=== PATIENT | male | born 1965 | race Caucasian/White ===

== ENCOUNTER 2018-02-12 12:29 | Inpatient (IN) | payer MEDICARE ==
[2018-02-12] MEDS ORDERED: Nitroglycerin 2% OINT* 1 GM PAK TOPICAL ONE (12:40)
[2018-02-12] MEDS ORDERED: Nitroglycerin 2% OINT* 1 GM PAK ONE (12:43)
[2018-02-12 13:10] LABS: ABS Basophils 0.1 10^3/ul (0-0.2); ABS Eosinophils 0.3 10^3/ul (0-0.6); ABS Lymphocytes 1.3 10^3/ul (1.0-4.8); ABS Monocytes 0.8 10^3/ul (0-0.8); ABS Neutrophils 7.6 10^3/ul (1.5-7.7); ABS Nucleated RBC 0 10^3/ul; Eosinophil % 3.1 % (0-6); Hematocrit 51 % (42-52); Lymphocyte % 12.3 % (25-47); Mean Corpuscular HGB Conc 34 g/dl (31-36); Mean Corpuscular Hemoglobin 29 pg (27-31); Mean Corpuscular Volume 87 fL (80-94); Mean Platelet Volume 8.5 um3 (7.4-10.4); Nucleated Red Blood Cells % 0; Platelet Count 185 10^3/ul (150-450); Red Blood Count 5.82 10^6/ul (4.00-5.40); Red Cell Distribution Width 14 % (10.5-15); White Blood Count 10.1 10^3/ul (3.5-10.8)
[2018-02-12 13:24] LABS: EGFR Non-African American 83.9 (>60)
--- NOTE | 2018-02-12 13:24 | RAD ---
Indication: Chest pain since 11:15 hours today. Cardiovascular disease; prosthetic heart valve. Respiratory disease. Comparison: November 17, 2014 CT abdomen. November 17, 2014 chest radiograph. Technique: Upright AP 1315 hours Report: No focal pulmonary lesion, compelling alveolar consolidation, pleural effusion, pneumothorax. Median sternotomy wires, prosthetic mitral valve annulus, RIGHT atrial, RIGHT ventricular, and coronary sinus level pacemaker leads. Mild cardiomegaly. Unremarkable central pulmonary vasculature and mediastinal contours. IMPRESSION: Mild cardiomegaly. Postsurgical change as described. No acute cardiopulmonary process evident.
[2018-02-12] MEDS ORDERED: Morphine INJ* 4 MG/ML 1 ML CARPUJECT IV ONE (13:36)
[2018-02-12] MEDS ORDERED: NS 0.9% 1000 ML* 1,000 ML IV ONE (13:36)
[2018-02-12] MEDS ORDERED: Ondansetron ODT TAB* 4 MG PO ONE (13:36)
[2018-02-12] MEDS ORDERED: Morphine VIAL* 4 MG/ML VIAL (1 ml vial) IV ONE ×2 (13:51→13:55)
[2018-02-12] MEDS ORDERED: Al Hydrox/Mg Hydrox/Simet LIQ* 30 ML UDC PO PRN (15:13)
[2018-02-12] MEDS ORDERED: Nitroglycerin TAB 0.4 MG* 0.4 MG TAB SL PRN (15:20)
[2018-02-12] MEDS ORDERED: Dextrose 50% Syringe 50 ML* 25 GM/50 ML SYRINGE IV PUSH PRN (15:35)
[2018-02-12 15:59] LABS: INR 1.08 (0.77-1.02)
[2018-02-12] MEDS ORDERED: Heparin DRIP 25,000 UNITS(*) 25,000 UNITS/500 ML BAG IV SCH ×2 (16:15→16:30)
[2018-02-12] MEDS ORDERED: nitroGLYCERIN DRIP* 25,000 MCG/250 ML BTL IV ONE (16:21)
[2018-02-12] MEDS ORDERED: Heparin VIAL(*) 5000 UNITS/ML VIAL (FIVE THOUSAND) IV SCH (17:00)
[2018-02-12] MEDS: Insulin LISPRO* 1 UNITS UNIT SUBCUT SCH ×2 (18:08→21:30)
--- NOTE | 2018-02-12 18:48 | ED ---
Mejia Luna Angela, scribed for Jeronimo Mi MD on 02/12/18 at 1241 . HPI Chest Pain - HPI Summary HPI Summary: This pt is a 52 y/o male presenting to [facility] via EMS c/o chest pain since 11:15 today. Pt reports he was standing up while he was watching his daughter's 8th grade graduation. He notes his pain is mid sternal, described as pressure, and radiates up to his throat. Denies, SOB, diaphoresis. At onset pt states his pain was 9 out of 10 in severity. EMS administered nitroglycerin x3 en route with some relief. Currently pt reports his pain is 2/10 in severity. PMHx includes afib, NE, stents, mitral valve replacement, pacemaker. He is anticoagulated on Coumadin. His siphon operator is Dr. Chavira. - History of Current Complaint Chief Complaint: EDChestPainROMI Time Seen by Provider: 02/12/18 12:35 Hx Obtained From: Patient Onset/Duration: Started Hours Ago, Still Present Timing: Lasting Hours Initial Severity: Severe - 9 Current Severity: Mild Pain Intensity: 2 Pain Scale Used: 0-10 Numeric Chest Pain Location: Mid Sternal Chest Pain Radiates: Yes Chest Pain Radiates To:: Other - throat Character: Pressure/Squeezing - pressure Aggravating Factor(s): Nothing Alleviating Factor(s): NTG 123, EMS Tx - aspirin Associated Signs and Symptoms: Positive: Chest Pain, Nausea. Negative: Dizziness, Shortness of Breath, Fever, Chills, Diaphoresis - Allergy/Home Medications Allergies/Adverse Reactions: Allergies Allergy/AdvReac Type Severity Reaction Status Date / Time atorvastatin Allergy Rash Verified 02/12/18 13:09 azithromycin Allergy Hives Verified 02/12/18 13:09 metoprolol Allergy Rash Verified 02/12/18 13:09 ramipril Allergy Rash Verified 02/12/18 13:09 Home Medications: Home Medications Dapagliflozin Propanediol [Farxiga] 10 mg PO DAILY 02/12/18 [History Confirmed 02/12/18] Digoxin TAB* [Lanoxin TAB*] 0.25 mg PO DAILY 02/12/18 [History Confirmed ] Magnesium Oxide TAB* [MagOx 400 TAB*] 400 mg PO DAILY 02/12/18 [History Confirmed 02/12/18] Rosuvastatin (NF) [Crestor (NF)] 20 mg PO DAILY 02/12/18 [History Confirmed 07/22] Sacubitril/Valsartan 49/51(NF) [Entresto 49/51(NF)] 1 tab PO BID 02/12/18 [ History Confirmed 02/12/18] Sitaglip/Metform XR50/1000(NR) [Janumet Xr (NR)] 2 tab PO DAILY [History Confirmed 02/12/18] PMH/Surg Hx/FS Hx/Imm Hx Endocrine/Hematology History: Reports: Hx Anticoagulant Therapy - coumadin, asa , Hx Diabetes, Hx Thyroid Disease Cardiovascular History: Reports: Hx Angina, Hx Auto Implanted Cardiovert Defib, Hx Coronary Artery Disease, Hx Hypercholesterolemia, Hx Hypertension, Hx Myocardial Infarction, Hx Pacemaker/ICD, Hx Valvular Heart Disease - mitral, Other Cardiovascular Problems/Disorders - mechanical valve Denies: Hx Congestive Heart Failure Respiratory History: Reports: Hx Sleep Apnea - cpap, but does not use Denies: Hx Asthma, Hx Chronic Obstructive Pulmonary Disease (COPD) GI History: Reports: Other GI Disorders - gastroenteritis History: Denies: Hx Dialysis, Hx Renal Disease Musculoskeletal History: Denies: Hx Arthritis, Hx Rheumatoid Arthritis, Hx Osteoporosis Sensory History: Reports: Hx Contacts or Glasses Opthamlomology History: Reports: Hx Contacts or Glasses Neurological History: Reports: Hx Headaches - Surgical History Surgery Procedure, Year, and Place: MITRAL VALVE REPLACEMENT (2 SURGERIES), PACEMAKER, CARDIAC STENT Infectious Disease History: No Infectious Disease History: Denies: Traveled Outside the [place] in Last 30 Days - Family History Known Family History: Positive: Cardiac Disease - Father: NE at age 38 Family History: Mother: Alzheimer's disease. - Social History Alcohol Use: Rare Substance Use Type: Reports: None Smoking Status (MU): Former Smoker Review of Systems Negative: Fever, Chills Negative: Erythema Negative: Sore Throat Positive: Chest Pain Negative: Shortness Of Breath, Cough Positive: Nausea. Negative: Abdominal Pain, Vomiting Negative: dysuria, hematuria Negative: Myalgia, Edema Negative: Rash Neurological: Other - NEG: dizziness All Other Systems Reviewed And Are Negative: Yes Physical Exam - Summary Physical Exam Summary: Constitutional: Well-developed, Well-nourished, Alert. (-) Distressed Skin: Warm, Dry HENT: Normocephalic; Atraumatic Eyes: Conjunctiva normal Neck: Musculoskeletal ROM normal neck. (-) JVD, (-) Stridor, (-) Tracheal deviation Cardio: Rhythm regular, rate normal, Heart sounds normal; Intact distal pulses; The pedal pulses are 2+ and symmetric. Radial pulses are 2+ and symmetric. (-) Murmur Pulmonary/Chest wall: Effort normal. (-) Respiratory distress, (-) Wheezes, (-) Rales Abd: Soft, (-) Tenderness, (-) Distension, (-) Guarding, (-) Rebound Musculoskeletal: (-) Edema Lymph: (-) Cervical adenopathy Neuro: Alert, Oriented x3 Psych: Mood and affect Normal Triage Information Reviewed: Yes Vital Signs On Initial Exam: Initial Vitals Temp Pulse Resp BP Pulse Ox 97.1 F 64 16 120/71 97 02/12/18 12:30 02/12/18 12:30 02/12/18 12:30 02/12/18 12:30 02/12/18 12:30 Vital Signs Reviewed: Yes Diagnostics - Vital Signs Vital Signs Temp Pulse Resp BP Pulse Ox 02/12/18 12:38 58 16 97 02/12/18 12:30 97.1 F 64 16 120/71 97 - Laboratory Result Diagrams: 02/12/18 13:01 02/12/18 13:01 Lab Statement: Any lab studies that have been ordered have been reviewed, and results considered in the medical decision making process. - Radiology Chest XR Xray Interpretation: Positive (See Comments) - IMPRESSION: Mild cardiomegaly. Postsurgical change as described. No acute cardiopulmonary process evident. Dr. Mi has reviewed this radiology report. Radiology Interpretation Completed By: Radiologist - EKG 12:32 Cardiac Rate: NL - at 60 bpm EKG Interpretation: Paced rhythm. No STEMI. 16:21 Cardiac Rate: NL - at 76 bpm EKG Interpretation: Paced rhythm. No change from prior EKG. No STEMI. Re-Evaluation - Re-Evaluation First Eval Re-Evaluation Time: 13:35 Change: Unchanged Comment: Pt still has 2/10 chest pain. Chest Pain Course/Dx - Course Assessment/Plan: Pt is a 52 y/o male, currently on Coumadin, who presents with chest pain since 11:15 today. Pt reports he was standing up while he was watching his daughter's 8th grade graduation when his chest pain began. He notes his pain is mid sternal, described as pressure, and radiates up to his throat. Denies, SOB, diaphoresis. At onset pt states his pain was 9 out of 10 in severity. EMS administered nitroglycerin x3 and aspirin en route with some relief. Currently pt reports his pain is 2/10 in severity. Test results without any significant abnormalities except for glucose of 265, first troponin is 0.03, second troponin is 0.31. Chest XR shows mild cardiomegaly. Postsurgical change as described. No acute cardiopulmonary process evident. In the ED course the pt was given IV fluids, morphine, zofran, heparin drip, nitroglycerin drip. I discussed pt care with Dr. Kahn, hospitalist, who accepted the pt for admission. - Diagnoses Provider Diagnoses: Chest pain - Provider Notifications Discussed Care Of Patient With: Edilma Kahn Time Discussed With Above Provider: 13:39 Instructed by Provider To: Admit As Inpatient Discharge - Sign-Out/Discharge Documenting (check all that apply): Discharge/Admit/Transfer - Admit - Discharge Plan Condition: Stable Disposition: ADMITTED TO [facility] The documentation as recorded by the Mejia ríos Angela accurately reflects the service I personally performed and the decisions made by me, Jeroniom Mi MD.
[2018-02-12 18:59] LABS: INR 1.45 (0.77-1.02)
[2018-02-12] MEDS: Acetaminophen TAB* 325 MG PO PRN (20:14)
--- NOTE | 2018-02-12 21:15 | HP ---
HISTORY AND PHYSICAL: DATE OF ADMISSION: ADDENDUM: Mr. Guzmán's second troponin just returned as 0.31. I have discussed the case with Dr. Hill and he agrees to evaluate the patient. [id number]/[facility] #: [id number] MTDD
[2018-02-12] MEDS: Carvedilol TAB* 6.25 MG PO SCH (21:30)
[2018-02-12] MEDS: SACUBITRIL PO SCH (21:31)
[2018-02-12] MEDS: VALSARTAN PO SCH (21:31)
--- NOTE | 2018-02-12 21:48 | HP ---
ADDENDUM NOW INCLUDED ON THIS REPORT HISTORY AND PHYSICAL: DATE OF ADMISSION: 02/12/18 TIME OF ADMISSION: 4 p.m. PRIMARY CARE PHYSICIAN: [facility]. BRICK SETTER OPERATOR: Dr. Chavira. CHIEF COMPLAINT: Chest pain. HISTORY OF PRESENT ILLNESS: This is a 52-year-old man with extensive cardiac history who presents with chest pain that began approximately 11 o'clock this morning at his daughter's 8th grade graduation. He was standing outside watching the ceremony when the pain began and he describes it as in the middle of his chest with radiation up to his throat and it has been constant since that time. He has not exerted himself since then, so he cannot associate any change with exertion, but the pain was associated with nausea and vomiting. He had taken his medications prior to the graduation and was feeling fine when he woke up. The pain came on suddenly and when it began was an 8/10. He took a nitro when the pain initially began and received 3 more nitro in the ambulance and the pain went from 8/10 to a 2/10. It continued to be 2/10 and in the emergency department, he received a nitro patch and morphine 4 mg IV and the pain is still at 2/10 and located in the middle of his chest without radiation. PAST MEDICAL HISTORY: 1. Systolic heart failure, ejection fraction 30% to 35%. 2. Atrial fibrillation/atrial flutter. 3. Coronary artery disease with stent. 4. Hypertension. 5. Pacemaker. 6. 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 7. History of ablation. FAMILY HISTORY: His father had an ME at age 40. SOCIAL HISTORY: He quit smoking 12 years ago. He drinks occasional alcohol and he does not work. REVIEW OF SYSTEMS: He denies orthopnea, PND, lightheadedness, headache, abdominal pain, back pain, or weakness. He does endorse dyspnea on exertion, but is chronic and unchanged. PHYSICAL EXAMINATION GENERAL: Alert, nontoxic-appearing man, who is somewhat uncomfortable. VITAL SIGNS: Temperature 97.1, heart rate 60, respiratory rate 14, pulse ox 94 % on room, blood pressure 99/63. HEENT: Pupils equal, round, and reactive to light. No nystagmus. Oral mucosa is moist. No pharyngeal exudates or erythema. NECK: No JVP. No cervical adenopathy. CHEST: Healed sternotomy incision at left chest wall pacemaker/ICD is noted. He has a mechanical click. Lungs are clear bilaterally. Chest pain is not reproducible to palpation. ABDOMEN: Soft, nontender, nondistended. No guarding or rebound. EXTREMITIES: No edema. No rashes. No ulcers. Strength is 5/5. LABORATORY DATA/DIAGNOSTIC STUDIES: White blood cell is 10.1, hemoglobin 17.0 , platelets 185. INR 1.0. Sodium 134, potassium 4.3, chloride 102, bicarb 23, BUN 0.94, creatinine 0.94, glucose 265, lactic acid 1.9. Troponin 0.03. Chest x-ray: Mild cardiomegaly and postsurgical changes. EKG: Paced rhythm with left axis deviation. ASSESSMENT AND PLAN: This is a 52-year-old man with extensive cardiac history presenting with chest pain that began approximately 5 hours ago. 1. Chest pain. His pain is ongoing at rest, which is concerning for unstable angina to me. An initial troponin is negative and his EKG is difficult to determine given its paced nature; however, reportedly, the EKG was reviewed by the taper operator. I am trending his troponin, monitoring him on tele and I would like to get him chest pain free with continued nitroglycerin and morphine. Since his INR is subtherapeutic and I am considering this to be unstable angina until proven otherwise, I am treating him with a heparin drip at this time. He takes aspirin daily at home, so this will be continued. He also takes beta- august which I am continuing and he takes a statin, but only 20 mg of rosuvastatin and I am increasing the dose of rosuvastatin. I am also starting a nitro drip and admitting him to the ICU 2. Subtherapeutic INR. This is concerning in the setting of St. Pee's valve; however, a complication of this should not result in chest pain. I am treating him with a heparin drip as above. 3. Atrial fibrillation/flutter with a pacemaker. He is rate controlled and I am treating him with heparin drip as above. 4. Chronic systolic heart failure due to ischemic cardiomyopathy. He appears euvolemic to me. He is on a beta-august and spironolactone, but not on HARJEET inhibitor. I see he has an allergy to RAMIPRIL, but it is unclear if he has been tried on other HARJEET inhibitors. If this is not a true allergy, he would benefit from afterload reduction with an HARJEET inhibitor. 5. Type 2 diabetes. I am treating him with lispro sliding scale a.c. and h.s. 6. DVT prophylaxis. Heparin therapeutically. 7. Full code. ADDENDUM: Mr. Guzmán's second troponin just returned as 0.31. I have discussed the case with Dr. Hill and he will evaluate the patient. [id number]/[facility] #: [id number]/[facility] #: [id number] MCKAY
--- NOTE | 2018-02-13 00:01 | CONS ---
CC: Dr. Chavira; [facility] in [place] * INTERVENTIONAL CARDIOLOGY CONSULT NOTE: DATE OF CONSULT: 02/12/18. REGULAR POWERHOUSE ELECTRICIAN: Dr. Chavira. PRIMARY CARE PHYSICIAN: [facility] in [place]. HISTORY OF PRESENT ILLNESS: A 52-year-old male with prior mitral valve replacement and coronary artery stenting, admitted with troponin positive ACS, non-ST elevation infarct. He has a complex past medical history. In 2005, he had an inferior wall infarct , was treated with thrombolysis with apparently failure. He developed cardiogenic shock, was flown to [place] where he had rescue RCA intervention with placement of a 3 x 18 Cypher drug-eluting stent in the RCA. His other vessels were patent. The inferior wall was akinetic. He had an intra-aortic balloon pump for several days. He apparently developed mitral regurgitation, subsequently had a mitral valve repair, which failed and then had a mitral valve replacement in [address] Pee bileaflet prosthetic valve. He has been on Coumadin since. He also has LV systolic dysfunction, last echo 2017 reported EF of 30 to 35%. He has had recurring episodes of ventricular arrhythmias, as well as atrial fib and atrial flutter, he has had ablation, has been on Tikosyn in the past. Apparently, he has been on atrial fibrillation now since November of this year, dig was started about two weeks ago for rate control. According to the patient, the intent is for rate control, as he continues to revert back to atrial fib or atrial flutter after cardioversions. Since November, he has had functional class II to III exertional dyspnea and fatigue without PND, orthopnea or peripheral edema. He has not had syncope. Today at around 11:15, he developed precordial chest discomfort, which radiated up into his neck, was accompanied by shortness of breath, nausea, and vomiting, was very similar to his infarct symptoms in 2006. He subsequently has symptomatically improved with sublingual and then IV nitro. Currently, he has very mild residual chest soreness. His last nuclear stress imaging study in 2013 reported a fixed inferior wall defect with LV dysfunction. He has diabetes, reports that his Accu-Cheks run in the 160s to 180s, he seems unaware that this is relatively poorly controlled. His last A1c was high at 10. He is on Crestor 20 mg daily according to his med list. His last LDL in July 2017 was high at 145. PAST MEDICAL HISTORY: 1. Prior inferior wall infarct with inferior scar, status post mitral valve replacement, St. Pee #29 prosthetic valve. 2. Ischemic cardiomyopathy. 3. Paroxysmal ventricular arrhythmias. 4. History of atrial fib and flutter. 5. Hypothyroidism. 6. Diabetes mellitus, type 2, poorly controlled. 7. Hyperlipidemia. HOME MEDICATIONS: Per the MAR: 1. Coumadin 6 mg daily for the past week or two since INR was in the 3s. 2. Aldactone 50 mg daily. 3. Janumet XR two daily. 4. Entresto 49/51 b.i.d. 5. Crestor 20 daily. 6. Paxil 10 mg daily. 7. Nitro 0.4 sublingual p.r.n. 8. Synthroid 175 mcg daily. 9. Digoxin 0.25 mg daily. 10. Farxiga 10 mg daily. 11. Carvedilol 6.25 b.i.d. 12. Aspirin 81 mg daily. ALLERGIES: Include ATORVASTATIN with rash, ZITHROMAX with hives, METOPROLOL with rash, and RAMIPRIL with apparently a cough. FAMILY HISTORY: Positive for premature coronary artery disease. SOCIAL HISTORY: He is a nonsmoker. REVIEW OF SYSTEMS: General: He is limited by exertional dyspnea and fatigue. MOWING MACHINE OPERATOR: No history of TIA or CVA. GI: He denies any history of bleeding. Circulatory: No claudication. Heme: No history of malignancy or anemia. Remainder all negative. PHYSICAL EXAM: He is comfortable resting in bed, has very mild chest pressure. His BP 131/67, heart rate in the 60s. His lungs are clear to percussion and auscultation. JVP is normal, as are carotids without bruits. HEENT: Normal without xanthelasma, scleral injection or jaundice. EOMs are grossly normal. Cranial nerves grossly intact. Cardiac Exam: Chest wall is nontender, he has a healed sternal incision. He has no audible mitral regurgitation, no gallop. Abdomen: Benign, soft. Normal bowel sounds, I cannot feel the aorta. No bruit. Femoral pulses are normal without bruits. Extremities: Radial pulses and pedal pulses are palpable. He has no cyanosis, clubbing or edema. Skin is warm and perfused. Psych: He is oriented and appropriate. DIAGNOSTIC STUDIES/LAB DATA: His CBC is unremarkable, platelet count 185,000. INR subtherapeutic at 1.08. BMP: Sodium 134, normal electrolytes, creatinine 0.94, blood sugar high at 265. A1c on 01/18/18 was 10. First troponin 0.3, second 0.31, BNP elevated at 124. Electrocardiogram shows ventricular paced rhythm. Chest x- ray per my review shows sternotomy changes, an AICD without any clear heart failure or infiltrate. IMPRESSION AND PLAN: 1. Troponin positive acute coronary syndrome/non- ST elevation infarct. He has left ventricular systolic dysfunction, has previously infarct at inferior wall with drug eluting stent. He had no other coronary disease at that time. His history is suggestive of an ischemic event rather than troponin elevation from decompensated heart failure. We have discussed this, I have recommended a coronary angiogram. He is much improved with medical management, cath is scheduled for tomorrow, sooner if he decompensates. We discussed possible need for additional stenting, we also discussed procedure, risks including possible need for transfer, etc. He will continue on heparin. We will hold this Coumadin. 2. Diabetes, uncontrolled. 3. Left ventricular systolic dysfunction, clinically compensated, continue same regimen. He is apparently intolerant of HARJEET inhibitors. 4. Paroxysmal atrial fibrillation and flutter, he apparently now is chronically in atrial fib/flutter with the intent of rate control, symptomatically he is limited. Thanks for the consultation. I will follow with you as needed. [id number]/[facility] #: [id number] MTDD
[2018-02-13] MEDS: Heparin VIAL(*) 5000 UNITS/ML VIAL (FIVE THOUSAND) IV SCH (00:52)
[2018-02-13 05:59] LABS: INR 1.18 (0.77-1.02)
[2018-02-13] MEDS: Levothyroxine TAB* 175 MCG TAB PO SCH (06:03)
[2018-02-13 06:06] LABS: EGFR Non-African American 86.1 (>60)
[2018-02-13 08:19] LABS: ABS Basophils 0.1 10^3/ul (0-0.2); ABS Eosinophils 0.4 10^3/ul (0-0.6); ABS Lymphocytes 1.8 10^3/ul (1.0-4.8); ABS Monocytes 0.9 10^3/ul (0-0.8); ABS Neutrophils 5.5 10^3/ul (1.5-7.7); ABS Nucleated RBC 0 10^3/ul; Eosinophil % 4.4 % (0-6); Hematocrit 47 % (42-52); Hemoglobin 15.6 g/dl (14.0-18.0); Lymphocyte % 20.5 % (25-47); Mean Corpuscular HGB Conc 33 g/dl (31-36); Mean Corpuscular Hemoglobin 29 pg (27-31); Mean Corpuscular Volume 87 fL (80-94); Mean Platelet Volume 8.8 um3 (7.4-10.4); Nucleated Red Blood Cells % 0.1; Platelet Count 168 10^3/ul (150-450); Red Blood Count 5.42 10^6/ul (4.00-5.40); Red Cell Distribution Width 15 % (10.5-15); White Blood Count 8.5 10^3/ul (3.5-10.8)
[2018-02-13] MEDS: Digoxin TAB* 0.25 MG PO SCH (08:26)
[2018-02-13] MEDS: PARoxetine HCL TAB* 10 MG PO SCH (08:26)
[2018-02-13] MEDS: CMCS Rosuvastatin (NF) 20 MG TAB PO SCH (08:26)
[2018-02-13] MEDS: Carvedilol TAB* 6.25 MG PO SCH ×2 (08:26→20:44)
[2018-02-13] MEDS: Magnesium Oxide TAB* 400 MG PO SCH (08:26)
[2018-02-13] MEDS: Acetaminophen TAB* 325 MG PO PRN (08:27)
[2018-02-13] MEDS: Aspirin EC TAB* 81 MG TAB.EC PO SCH (08:27)
[2018-02-13] MEDS: Insulin LISPRO* 1 UNITS UNIT SUBCUT SCH ×4 (08:29→20:52)
[2018-02-13] MEDS: SACUBITRIL PO SCH ×2 (08:29→20:43)
[2018-02-13] MEDS: VALSARTAN PO SCH ×2 (08:29→20:43)
[2018-02-13] MEDS ORDERED: NS 0.9% 1000 ML* 1,000 ML IV SCH (09:00)
[2018-02-13] MEDS ORDERED: Rosuvastatin (NF) 20 MG TAB PO SCH (09:00)
[2018-02-13] MEDS ORDERED: Heparin 2 UNITS/ML IVPREMIX* 3,000 ML IV ONE (11:05)
[2018-02-13] MEDS ORDERED: fentaNYL* 50 MCG/ML 2 ML VIAL (100 MCG VIAL) ONE (11:05)
[2018-02-13] MEDS ORDERED: Heparin(*) 1000 UNIT/ML 10 ML VIAL CATH LAB IV ONE ×2 (11:05→12:55)
[2018-02-13] MEDS ORDERED: Iohexol 350 (CONTRAST) 200 ML MDV IV ONE (11:06)
[2018-02-13] MEDS ORDERED: nitroGLYCERIN DRIP* 25,000 MCG/250 ML BTL ONE (11:06)
[2018-02-13] MEDS ORDERED: VERAPAMIL 2.5 MG/ML 2 ML VIAL ** 5 mg/2 ml ONE (11:06)
[2018-02-13] MEDS ORDERED: Lidocaine 1% INJ* 10 MG/ML 30 ML SDV ONE (11:06)
[2018-02-13] MEDS ORDERED: Midazolam* 1 MG/ML 10 ML VIAL (10 MG) ONE (11:06)
[2018-02-13] MEDS ORDERED: Ticagrelor* 90 MG TAB PO ONE (12:42)
[2018-02-13] MEDS ORDERED: Nitroglycerin TAB 0.4 MG* 0.4 MG TAB SL PRN (13:19)
[2018-02-13] MEDS ORDERED: NS 0.9% 1000 ML* 1,000 ML IV ONE (13:19)
[2018-02-13] MEDS: Spironolactone TAB* 25 MG PO SCH (15:14)
[2018-02-13] MEDS: oxyCODONE/Acetamin 5/325 MG* TAB PO PRN ×2 (15:14→20:44)
[2018-02-13] MEDS ORDERED: Warfarin TAB(*) 2 MG PO SCH (17:00)
[2018-02-13] MEDS ORDERED: Warfarin TAB(*) 6 MG PO SCH (17:00)
[2018-02-13] MEDS ORDERED: Heparin DRIP 25,000 UNITS(*) 25,000 UNITS/500 ML BAG IV SCH (17:45)
[2018-02-13] MEDS ORDERED: Clopidogrel TAB* 300 MG PO ONE (18:00)
--- NOTE | 2018-02-13 21:43 | PN ---
Subjective Date of Service: 02/13/18 Interval History: scheduled for cardiac cath today at 10 am. denies chest pain or shortness of breath. Denies abd pain n/v/d. Family History: Unchanged from Admission Social History: Unchanged from Admission Past Medical History: Unchanged from Admission Objective Active Medications: Acetaminophen (Tylenol Tab*) 650 mg PO Q4H PRN PRN Reason: FEVER/PAIN Last Admin: 02/13/18 08:27 Dose: 650 mg Al Hydrox/Mg Hydrox/Simethicone (Maalox Plus*) 30 ml PO Q6H PRN PRN Reason: INDIGESTION Aspirin (Aspirin Ec Tab*) 81 mg PO DAILY [facility] Last Admin: 02/13/18 08:27 Dose: 81 mg Carvedilol (Coreg Tab*) 6.25 mg PO BID [facility] Last Admin: 02/13/18 20:44 Dose: 6.25 mg Clopidogrel Bisulfate (Plavix Tab*) 75 mg PO DAILY [facility] Dextrose (D50w Syringe 50 Ml*) 12.5 gm IV PUSH .FOR FS < 60 - SS PRN PRN Reason: FS < 60 Digoxin (Lanoxin Tab*) 0.25 mg PO DAILY [facility] Last Admin: 02/13/18 08:26 Dose: 0.25 mg Heparin Sodium (Porcine) (Heparin Vial(*)) 0 units IV .PER PROTOCOL [facility] Last Admin: 02/13/18 00:52 Dose: 2,000 units Sodium Chloride (Ns 0.9% 1000 Ml*) 1,000 mls @ 100 mls/hr IV .PER RATE ONE Stop: 02/13/18 23:18 Last Admin: 02/13/18 13:30 Dose: 100 mls/hr Heparin Sodium/Dextrose (Heparin Drip 25,000 Units(*)) 25,000 units in 500 mls @ 0 mls/hr IV PER RATE [facility]; Per Protocol PRN Reason: Protocol Insulin Human Lispro (Humalog*) 0 units SUBCUT ACHS [facility] PRN Reason: Protocol Last Admin: 02/13/18 20:52 Dose: 3 units Levothyroxine Sodium (Synthroid Tab*) 175 mcg PO 0600 [facility] Last Admin: 02/13/18 06:03 Dose: 175 mcg Magnesium Oxide (Magox 400 Tab*) 400 mg PO DAILY [facility] Last Admin: 02/13/18 08:26 Dose: 400 mg Nitroglycerin (Nitroglycerin Tab 0.4 Mg*) 0.4 mg SL Q5M PRN PRN Reason: PAIN - CHEST Nitroglycerin (Nitroglycerin Tab 0.4 Mg*) 0.4 mg SL Q5M PRN PRN Reason: ANGINA Oxycodone/Acetaminophen (Percocet 5/325 Tab*) 1 tab PO Q6H PRN PRN Reason: PAIN Last Admin: 02/13/18 20:44 Dose: 1 tab Paroxetine HCl (Paxil Tab*) 10 mg PO DAILY [facility] Last Admin: 02/13/18 08:26 Dose: 10 mg Pharmacy Profile Note (Coumadin Daily Reminder*) 1 note FOLLOW UP 1700 [facility] Last Admin: 02/13/18 17:50 Dose: 1 note Rosuvastatin Calcium (Crestor (Nf)) 40 mg PO DAILY [facility] Last Admin: 02/13/18 08:26 Dose: 40 mg Sacubitril/Valsartan (Entresto 49/51(Nf)) 1 tab PO BID [facility] Last Admin: 02/13/18 20:43 Dose: 1 tab Spironolactone (Aldactone Tab*) 50 mg PO DAILY [facility] Last Admin: 02/13/18 15:14 Dose: 50 mg Warfarin Sodium (Coumadin Tab(*)) 7 mg PO DAILY@1700 [facility] PRN Reason: Protocol Last Admin: 02/13/18 17:50 Dose: 7 mg Vital Signs - 8 hr 02/13/18 02/13/18 02/13/18 13:45 14:00 14:15 Temperature Pulse Rate 60 61 63 Respiratory 18 15 20 Rate Blood Pressure 116/70 109/76 134/80 (mmHg) O2 Sat by Pulse 93 95 95 Oximetry 02/13/18 02/13/18 02/13/18 14:31 14:46 15:00 Temperature Pulse Rate 61 60 62 Respiratory 18 13 14 Rate Blood Pressure 129/69 93/59 127/69 (mmHg) O2 Sat by Pulse 96 95 94 Oximetry 02/13/18 02/13/18 02/13/18 15:04 15:14 15:15 Temperature 98 F Pulse Rate 60 Respiratory 15 15 Rate Blood Pressure 112/71 (mmHg) O2 Sat by Pulse 95 Oximetry 02/13/18 02/13/18 02/13/18 15:30 15:45 16:00 Temperature 96.7 F Pulse Rate 60 60 60 Respiratory 19 17 15 Rate Blood Pressure 120/80 125/61 116/62 (mmHg) O2 Sat by Pulse 94 96 95 Oximetry 02/13/18 02/13/18 02/13/18 16:04 16:16 16:26 Temperature 98.2 F Pulse Rate 60 Respiratory 11 20 Rate Blood Pressure 90/57 (mmHg) O2 Sat by Pulse 95 Oximetry 02/13/18 02/13/18 02/13/18 16:30 16:45 17:00 Temperature Pulse Rate 60 59 60 Respiratory 9 17 14 Rate Blood Pressure 94/52 108/51 107/53 (mmHg) O2 Sat by Pulse 93 94 96 Oximetry 02/13/18 02/13/18 02/13/18 17:15 17:30 17:46 Temperature Pulse Rate 60 61 60 Respiratory 13 19 18 Rate Blood Pressure 101/56 130/76 107/46 (mmHg) O2 Sat by Pulse 95 96 96 Oximetry 02/13/18 02/13/18 02/13/18 18:00 18:04 18:31 Temperature 98 F Pulse Rate 60 60 Respiratory 15 10 Rate Blood Pressure 108/61 127/45 (mmHg) O2 Sat by Pulse 96 96 Oximetry 02/13/18 02/13/18 02/13/18 18:46 19:00 19:15 Temperature Pulse Rate 60 60 59 Respiratory 18 27 19 Rate Blood Pressure 110/49 124/69 140/73 (mmHg) O2 Sat by Pulse 98 95 94 Oximetry 02/13/18 02/13/18 02/13/18 19:26 19:30 19:42 Temperature 98.1 F Pulse Rate 60 60 Respiratory 16 19 Rate Blood Pressure 129/57 122/71 (mmHg) O2 Sat by Pulse 95 94 Oximetry 02/13/18 02/13/18 02/13/18 20:00 20:30 20:44 Temperature Pulse Rate 60 60 Respiratory 20 16 22 Rate Blood Pressure 125/69 124/67 (mmHg) O2 Sat by Pulse 95 94 Oximetry 02/13/18 21:00 Temperature Pulse Rate 68 Respiratory 25 Rate Blood Pressure 133/72 (mmHg) O2 Sat by Pulse 94 Oximetry Oxygen Devices in Use Now: None Appearance: appears comfortable sitting in bed. Eyes: No Scleral Icterus Ears/Nose/Mouth/Throat: Clear Oropharnyx, Mucous Membranes Moist Neck: NL Appearance and Movements; NL JVP, Trachea Midline Respiratory: Symmetrical Chest Expansion and Respiratory Effort, Clear to Auscultation Cardiovascular: No Edema, - - irregular rate, Click, no JVD Abdominal: NL Sounds; No Tenderness; No Distention Extremities: No Edema, No Clubbing, Cyanosis Skin: No Rash or Ulcers, No Nodules or Sclerosis Neurological: Alert and Oriented x 3 Nutrition: - - NPO Result Diagrams: 02/13/18 05:30 02/13/18 05:38 Microbiology and Other Data: Microbiology 02/12/18 18:05 Nasal Screen MRSA (PCR)(HERIBERTO) - Final Nasal Mrsa Not Detected Assess/Plan/Problems-Billing Assessment: Mr. Guzmán is a 52 y.o male who carries a past medical hx significant for extensive cardiac history which includes CA, prosthetic mitral valve, HTN, afib / flutter , CAD, and pacemaker who presented to the emergency room with chest pain. Postive troponins. Cardiac cath on 02/13 with stent placed in the Circumflex. Patient is on chronic anticoagulation with coumadin, INR sub- therapeutic and is needing heparin drip until therapeutic - Patient Problems (1) Chest pain Current Visit: Yes Status: Acute Code(s): R07.9 - CHEST PAIN, UNSPECIFIED SNOMED Code(s): 90324839 Comment: With positive troponins peaked at 2.42 - Dr. Hill consulted - cardiac cath today stent in the Circumflex - plavix loading dose given and will continue with 75 mg daily - ASA - will continue home medications (2) Subtherapeutic international normalized ratio (INR) Current Visit: Yes Status: Acute Code(s): R79.1 - ABNORMAL COAGULATION PROFILE SNOMED Code(s): 314894630 Comment: Will continue heparin drip until INR is therapeutic, prosthetic mitral valve Coumadin 7 mg today-will adjust dosing according to his INR INR today 1.18 repeat INR in the AM (3) Coronary artery arteriosclerosis Current Visit: No Status: Acute Code(s): I25.10 - ATHSCL HEART DISEASE OF [place] CORONARY ARTERY W/O ANG PCTRS SNOMED Code(s): 50945202 Comment: Continue home medictions - cardiac cath with stent placement today in the Circumflex - plavix loading dose 300 mg and then 75 mg daily - ASA (4) HTN (hypertension) Current Visit: Yes Status: Acute Code(s): I10 - ESSENTIAL (PRIMARY) HYPERTENSION SNOMED Code(s): 36996367 Comment: Will continue home medications (5) Atrial flutter Current Visit: No Status: Acute Code(s): I48.92 - UNSPECIFIED ATRIAL FLUTTER SNOMED Code(s): 6619305 Comment: Will continue Digoxin- rate is controlled pacemaker will continue coreg and entresto , coumadin ASA (6) Cardiomyopathy Current Visit: No Status: Acute Code(s): I42.9 - CARDIOMYOPATHY, UNSPECIFIED SNOMED Code(s): 35465879 Comment: pacemaker Continue home medications - entresto, coreg, asa, aldactone (7) Hypothyroid Current Visit: Yes Status: Acute Code(s): E03.9 - HYPOTHYROIDISM, UNSPECIFIED SNOMED Code(s): 53324019 Comment: Continue Levothyroxine (8) Diabetes Current Visit: Yes Status: Acute Code(s): E11.9 - TYPE 2 DIABETES MELLITUS WITHOUT COMPLICATIONS SNOMED Code(s): 15612708 Comment: Finger sticks Lispro sliding scale (9) DVT prophylaxis Current Visit: Yes Status: Resolved Code(s): OHK1639 - SNOMED Code(s): 924613113 Comment: Coumadin INR sub therapeutic - heparin drip (10) Full code status Current Visit: Yes Status: Acute Code(s): Z78.9 - OTHER SPECIFIED HEALTH STATUS SNOMED Code(s): 554716363 Status and Disposition: inpatient until INR is therapeutic
[2018-02-14] MEDS: Heparin DRIP 25,000 UNITS(*) 25,000 UNITS/500 ML BAG IV SCH ×2 (00:24→20:18)
[2018-02-14] MEDS: Heparin VIAL(*) 5000 UNITS/ML VIAL (FIVE THOUSAND) IV SCH (02:55)
[2018-02-14 05:14] LABS: ABS Basophils 0 10^3/ul (0-0.2); ABS Eosinophils 0.4 10^3/ul (0-0.6); ABS Lymphocytes 1.8 10^3/ul (1.0-4.8); ABS Monocytes 0.8 10^3/ul (0-0.8); ABS Neutrophils 5.5 10^3/ul (1.5-7.7); ABS Nucleated RBC 0 10^3/ul; Eosinophil % 4.5 % (0-6); Hematocrit 46 % (42-52); Hemoglobin 15.2 g/dl (14.0-18.0); Lymphocyte % 21.4 % (25-47); Mean Corpuscular HGB Conc 33 g/dl (31-36); Mean Corpuscular Hemoglobin 29 pg (27-31); Mean Corpuscular Volume 87 fL (80-94); Mean Platelet Volume 8.3 um3 (7.4-10.4); Nucleated Red Blood Cells % 0.1; Platelet Count 152 10^3/ul (150-450); Red Blood Count 5.24 10^6/ul (4.00-5.40); Red Cell Distribution Width 14 % (10.5-15); White Blood Count 8.6 10^3/ul (3.5-10.8)
[2018-02-14 05:21] LABS: INR 1.15 (0.77-1.02)
[2018-02-14 05:30] LABS: EGFR Non-African American 98.3 (>60)
[2018-02-14] MEDS: Levothyroxine TAB* 175 MCG TAB PO SCH (05:45)
--- NOTE | 2018-02-14 08:10 | CATH ---
CC: [facility]; Dr. Chavira STENT REPORT: DATE OF PROCEDURE: 02/13/18 PRIMARY CARE PHYSICIAN: [facility]. TOW TRUCK DISPATCHER: Dr. Chavira. PROCEDURES: 1. Right ulnar artery access, bilateral selective coronary cineangiography. 2. Left heart catheterization. 3. Left ventriculography. 4. Stent placement, circumflex OM, 2.75 x 8 Synergy drug-eluting stent. HISTORY: A 52-year-old male with inferior infarct in 2005 with salvage stenting 3 x 18 distal RCA wi th cardiogenic shock. He subsequently developed severe MR, required mitral valve replacement. He renteria s LV systolic dysfunction, last echo in September EF 30% to 35%. He now presents with troponin positiv e ACS, non-ST elevation infarct. PROCEDURE ACCESS: The right radial artery was small, could not be entered even with ultrasound jackie tance, therefore the right ulnar artery, which was large was used for access with ultrasound guidance . DIAGNOSTIC CATHETERS: A 5F TIG 4 and a 5F pigtail. MEDICATIONS: 1. Subcu lidocaine. 2. IV Versed. 3. IV fentanyl. 4. Heparin 3000 units, verapamil 3 mg, nitroglycerin 300 mcg, heparin 4000 units IV, 3000 units IV. 5. Brilinta 180 mg p.o. loading dose. GUIDING CATHETERS: A 6F VL 3.5 wire 14 BMW used to deploy a 2.75 x 8 Synergy drug- eluting stent, OM 1 ostium, 11 atmospheres 16 seconds, then postdilated with a 2.75 x 8 NC balloon to 16 atmospheres fo r 20 seconds. HEMODYNAMICS: Initial BP 125/62, LV 98/6-9, no aortic valve gradient on pullback. ANGIOGRAPHY: He has an AICD implanted, and has a prosthetic tilting disk valve with normal excursion of the valve leaflets. Left main: The left main is short, normal. LAD: The LAD is large, extends past the apex, it has somewhat slow flow, the LAD supplies several sm all to moderate diagonals, the LAD has mild systolic compression in its mid segment, the LAD has no s ignificant stenosis. Circumflex: The circumflex is moderate, not dominant, with a very small ramus branch, the first kenyetta inal is moderate, has an ostial 80% stenosis, has AINSLEY 2 flow, this is followed by a very small calib er, small distribution, second marginal which has proximal 60% to 70% stenosis, was not treated. RCA: The RCA is large, dominant, has a 40% stenosis in its mid segment, the previously placed stent beyond the acute marginal is widely patent, the PDA is large, followed by a large posterolateral bran ch, the RCA has no significant stenosis. LV gram: The left ventricle is enlarged, the inferior wall is akinetic, the inferior apical segment is dyskinetic, visually estimated LVEF 25%. There is no evident mitral regurgitation, although mild MR could easily be missed because of small volume of contrast used for LV gram. After OM1 stent placement and postdilatation, there is no residual stenosis, flow is AINSLEY 3. CONCLUSION: 1. Significant OM1 ostial stenosis, moderate stenosis of a small third marginal, excellent angiograp hic result with drug-eluting stent placement OM1. OM2 was not stented because of small vessel size, and small distribution. 2. Widely patent previously placed RCA stent. 3. Severe left ventricular systolic dysfunction. 4. Normally functioning prosthetic [place] mitral valve prothesis. 5. Successful right ulnar access, right radial access was unsuccessful because of small vessel size and failure to enter it even with the use of ultrasound guidance. [id number]/[facility] #: [id number]
--- NOTE | 2018-02-14 08:52 | PN ---
Subjective Date of Service: 02/14/18 Interval History: No overnight events, no tele events. Feels better today but complains of right wrist pain. Good appetite, no chest pain, shorntess of breath, orthopnea, or PND. Plan to take a walk after breakfast. Family History: Unchanged from Admission Social History: Unchanged from Admission Past Medical History: Unchanged from Admission Objective Active Medications: Acetaminophen (Tylenol Tab*) 650 mg PO Q4H PRN PRN Reason: FEVER/PAIN Last Admin: 02/13/18 08:27 Dose: 650 mg Al Hydrox/Mg Hydrox/Simethicone (Maalox Plus*) 30 ml PO Q6H PRN PRN Reason: INDIGESTION Aspirin (Aspirin Ec Tab*) 81 mg PO DAILY [facility] Last Admin: 02/13/18 08:27 Dose: 81 mg Carvedilol (Coreg Tab*) 6.25 mg PO BID [facility] Last Admin: 02/13/18 20:44 Dose: 6.25 mg Clopidogrel Bisulfate (Plavix Tab*) 75 mg PO DAILY [facility] Dextrose (D50w Syringe 50 Ml*) 12.5 gm IV PUSH .FOR FS < 60 - SS PRN PRN Reason: FS < 60 Digoxin (Lanoxin Tab*) 0.25 mg PO DAILY [facility] Last Admin: 02/13/18 08:26 Dose: 0.25 mg Heparin Sodium (Porcine) (Heparin Vial(*)) 0 units IV .PER PROTOCOL [facility] Last Admin: 02/14/18 02:55 Dose: 2,000 units Heparin Sodium/Dextrose (Heparin Drip 25,000 Units(*)) 25,000 units in 500 mls @ 0 mls/hr IV PER RATE [facility]; Per Protocol PRN Reason: Protocol Last Admin: 02/14/18 00:24 Dose: 23 mls/hr Insulin Human Lispro (Humalog*) 0 units SUBCUT ACHS [facility] PRN Reason: Protocol Last Admin: 02/13/18 20:52 Dose: 3 units Levothyroxine Sodium (Synthroid Tab*) 175 mcg PO 0600 [facility] Last Admin: 02/14/18 05:45 Dose: 175 mcg Magnesium Oxide (Magox 400 Tab*) 400 mg PO DAILY [facility] Last Admin: 02/13/18 08:26 Dose: 400 mg Nitroglycerin (Nitroglycerin Tab 0.4 Mg*) 0.4 mg SL Q5M PRN PRN Reason: PAIN - CHEST Nitroglycerin (Nitroglycerin Tab 0.4 Mg*) 0.4 mg SL Q5M PRN PRN Reason: ANGINA Oxycodone/Acetaminophen (Percocet 5/325 Tab*) 1 tab PO Q6H PRN PRN Reason: PAIN Last Admin: 02/13/18 20:44 Dose: 1 tab Paroxetine HCl (Paxil Tab*) 10 mg PO DAILY [facility] Last Admin: 02/13/18 08:26 Dose: 10 mg Pharmacy Profile Note (Coumadin Daily Reminder*) 1 note FOLLOW UP 1700 [facility] Last Admin: 02/13/18 17:50 Dose: 1 note Rosuvastatin Calcium (Crestor (Nf)) 40 mg PO DAILY [facility] Last Admin: 02/13/18 08:26 Dose: 40 mg Sacubitril/Valsartan (Entresto 49/51(Nf)) 1 tab PO BID [facility] Last Admin: 02/13/18 20:43 Dose: 1 tab Spironolactone (Aldactone Tab*) 50 mg PO DAILY [facility] Last Admin: 02/13/18 15:14 Dose: 50 mg Warfarin Sodium (Coumadin Tab(*)) 7 mg PO DAILY@1700 [facility] PRN Reason: Protocol Last Admin: 02/13/18 17:50 Dose: 7 mg Vital Signs - 8 hr 02/14/18 02/14/18 02/14/18 01:00 01:30 02:00 Temperature Pulse Rate 56 59 60 Respiratory 19 17 15 Rate Blood Pressure 99/60 107/69 119/66 (mmHg) O2 Sat by Pulse 91 92 95 Oximetry 02/14/18 02/14/18 02/14/18 02:30 03:00 03:30 Temperature Pulse Rate 61 60 63 Respiratory 14 9 16 Rate Blood Pressure 106/64 89/69 113/67 (mmHg) O2 Sat by Pulse 93 90 94 Oximetry 02/14/18 02/14/18 02/14/18 04:00 04:30 05:00 Temperature 98.0 F Pulse Rate 60 60 63 Respiratory 13 9 13 Rate Blood Pressure 125/64 118/67 100/66 (mmHg) O2 Sat by Pulse 94 97 94 Oximetry 02/14/18 02/14/18 05:30 06:00 Temperature Pulse Rate 60 61 Respiratory 17 14 Rate Blood Pressure 120/76 90/61 (mmHg) O2 Sat by Pulse 94 93 Oximetry Oxygen Devices in Use Now: None Appearance: alert, sitting up in chair Eyes: No Scleral Icterus Ears/Nose/Mouth/Throat: NL Teeth, Lips, Gums Neck: NL Appearance and Movements; NL JVP Respiratory: Symmetrical Chest Expansion and Respiratory Effort, Clear to Auscultation Cardiovascular: NL Sounds; No Murmurs; No JVD, - - + systolic murmur with click Lymphatic: No Cervical Adenopathy Extremities: No Edema, - - right wrist hematoma noted with induration proximal to ulnar puncture site, nonpulsatile, no thrill Skin: No Rash or Ulcers Neurological: Alert and Oriented x 3 Result Diagrams: 02/14/18 05:02 02/14/18 05:02 Microbiology and Other Data: Microbiology 02/12/18 18:05 Nasal Screen MRSA (PCR)(HERIBERTO) - Final Nasal Mrsa Not Detected Assess/Plan/Problems-Billing Assessment: Mr. Guzmán is a 52 y.o male with history of CAD, prosthetic mitral valve, HTN, afib/ flutter, and pacemaker who presented to the ED with chest pain and was found to have ACS. Cardiac cath on 02/13 with stent placed in the Circumflex. - Patient Problems (1) Acute coronary syndrome Current Visit: Yes Status: Acute Code(s): I24.9 - ACUTE ISCHEMIC HEART DISEASE, UNSPECIFIED SNOMED Code(s): 431758849 Comment: s/p stent to circumflex 02/13 hemodynamically stable continue asa/plavix, statin, bb (2) Diabetes Current Visit: Yes Status: Acute Code(s): E11.9 - TYPE 2 DIABETES MELLITUS WITHOUT COMPLICATIONS SNOMED Code(s): 76250054 Comment: Finger sticks Lispro sliding scale f/u a1c (3) Subtherapeutic international normalized ratio (INR) Current Visit: Yes Status: Acute Code(s): R79.1 - ABNORMAL COAGULATION PROFILE SNOMED Code(s): 959664899 Comment: goal 2.5-3.5 continue heparin/warfarin bridge for prosthetic valve (4) Atrial flutter Current Visit: No Status: Acute Code(s): I48.92 - UNSPECIFIED ATRIAL FLUTTER SNOMED Code(s): 7949128 Comment: rate controlled on digoxic AC (5) Cardiomyopathy Current Visit: No Status: Acute Code(s): I42.9 - CARDIOMYOPATHY, UNSPECIFIED SNOMED Code(s): 78669792 Comment: ischemic chronic, compensated continue entresto, coreg, asa, aldactone repeat TTE today (6) Hematoma Current Visit: Yes Status: Acute Code(s): T14.8XXA - OTHER INJURY OF UNSPECIFIED BODY REGION, INITIAL ENCOUNTER SNOMED Code(s): 691098476 Comment: right wrist, nonpulsatile and no thrill Status and Disposition: inpatient until INR is therapeutic
[2018-02-14] MEDS: Aspirin EC TAB* 81 MG TAB.EC PO SCH (08:56)
[2018-02-14] MEDS: Insulin LISPRO* 1 UNITS UNIT SUBCUT SCH ×4 (08:56→21:34)
[2018-02-14] MEDS: PARoxetine HCL TAB* 10 MG PO SCH (08:56)
[2018-02-14] MEDS: Magnesium Oxide TAB* 400 MG PO SCH (08:56)
[2018-02-14] MEDS: Spironolactone TAB* 25 MG PO SCH (08:57)
[2018-02-14] MEDS: Digoxin TAB* 0.25 MG PO SCH (08:57)
[2018-02-14] MEDS: Clopidogrel TAB* 75 MG PO SCH (08:57)
[2018-02-14] MEDS: Carvedilol TAB* 6.25 MG PO SCH ×2 (08:57→21:33)
[2018-02-14] MEDS: CMCS Rosuvastatin (NF) 20 MG TAB PO SCH (08:58)
[2018-02-14] MEDS: SACUBITRIL PO SCH ×2 (09:00→21:34)
[2018-02-14] MEDS: VALSARTAN PO SCH ×2 (09:00→21:34)
[2018-02-14] MEDS ORDERED: Warfarin TAB(*) 5 MG PO SCH (17:00)
[2018-02-14] MEDS ORDERED: Warfarin TAB(*) 2 MG PO SCH (17:00)
[2018-02-14 23:57] LABS: EGFR Non-African American 91.8 (>60)
[2018-02-15] MEDS: Levothyroxine TAB* 175 MCG TAB PO SCH (05:37)
[2018-02-15 06:18] LABS: ABS Basophils 0 10^3/ul (0-0.2); ABS Eosinophils 0.3 10^3/ul (0-0.6); ABS Lymphocytes 1.6 10^3/ul (1.0-4.8); ABS Monocytes 0.8 10^3/ul (0-0.8); ABS Neutrophils 3.9 10^3/ul (1.5-7.7); ABS Nucleated RBC 0 10^3/ul; Hematocrit 44 % (42-52); Lymphocyte % 24.1 % (25-47); Mean Corpuscular HGB Conc 34 g/dl (31-36); Mean Corpuscular Hemoglobin 29 pg (27-31); Mean Corpuscular Volume 87 fL (80-94); Mean Platelet Volume 8.3 um3 (7.4-10.4); Nucleated Red Blood Cells % 0.1; Platelet Count 160 10^3/ul (150-450); Red Blood Count 5.11 10^6/ul (4.00-5.40); Red Cell Distribution Width 15 % (10.5-15); White Blood Count 6.7 10^3/ul (3.5-10.8)
[2018-02-15 06:39] LABS: INR 1.35 (0.77-1.02)
[2018-02-15] MEDS: Spironolactone TAB* 25 MG PO SCH (09:50)
[2018-02-15] MEDS: VALSARTAN PO SCH ×2 (09:50→20:52)
[2018-02-15] MEDS: Clopidogrel TAB* 75 MG PO SCH (09:50)
[2018-02-15] MEDS: SACUBITRIL PO SCH ×2 (09:50→20:52)
[2018-02-15] MEDS: PARoxetine HCL TAB* 10 MG PO SCH (09:51)
[2018-02-15] MEDS: Digoxin TAB* 0.25 MG PO SCH (09:51)
[2018-02-15] MEDS: Aspirin EC TAB* 81 MG TAB.EC PO SCH (09:51)
[2018-02-15] MEDS: Carvedilol TAB* 6.25 MG PO SCH ×2 (09:51→20:52)
[2018-02-15] MEDS: Magnesium Oxide TAB* 400 MG PO SCH (09:51)
[2018-02-15] MEDS: Insulin LISPRO* 1 UNITS UNIT SUBCUT SCH ×4 (09:53→20:52)
[2018-02-15] MEDS: CMCS Rosuvastatin (NF) 20 MG TAB PO SCH (12:03)
[2018-02-15] MEDS: Heparin DRIP 25,000 UNITS(*) 25,000 UNITS/500 ML BAG IV SCH (16:05)
[2018-02-15] MEDS ORDERED: Warfarin TAB(*) 10 MG PO ONE (17:00)
--- NOTE | 2018-02-15 17:00 | PN ---
Subjective Date of Service: 02/15/18 Interval History: no overnight events. feels good today, anxious to go home. no tele events no chest pain, shortness of breath, nausea, orthopnea. right wrist pain resolve.d Family History: Unchanged from Admission Social History: Unchanged from Admission Past Medical History: Unchanged from Admission Objective Active Medications: Acetaminophen (Tylenol Tab*) 650 mg PO Q4H PRN PRN Reason: FEVER/PAIN Last Admin: 02/13/18 08:27 Dose: 650 mg Al Hydrox/Mg Hydrox/Simethicone (Maalox Plus*) 30 ml PO Q6H PRN PRN Reason: INDIGESTION Aspirin (Aspirin Ec Tab*) 81 mg PO DAILY [facility] Last Admin: 02/15/18 09:51 Dose: 81 mg Carvedilol (Coreg Tab*) 6.25 mg PO BID [facility] Last Admin: 02/15/18 09:51 Dose: 6.25 mg Clopidogrel Bisulfate (Plavix Tab*) 75 mg PO DAILY [facility] Last Admin: 02/15/18 09:50 Dose: 75 mg Dextrose (D50w Syringe 50 Ml*) 12.5 gm IV PUSH .FOR FS < 60 - SS PRN PRN Reason: FS < 60 Digoxin (Lanoxin Tab*) 0.25 mg PO DAILY [facility] Last Admin: 02/15/18 09:51 Dose: 0.25 mg Heparin Sodium (Porcine) (Heparin Vial(*)) 0 units IV .PER PROTOCOL [facility] Last Admin: 02/14/18 02:55 Dose: 2,000 units Heparin Sodium/Dextrose (Heparin Drip 25,000 Units(*)) 25,000 units in 500 mls @ 0 mls/hr IV PER RATE [facility]; Per Protocol PRN Reason: Protocol Last Admin: 02/15/18 16:05 Dose: 27 mls/hr Insulin Human Lispro (Humalog*) 0 units SUBCUT ACHS [facility] PRN Reason: Protocol Last Admin: 02/15/18 14:02 Dose: 9 units Levothyroxine Sodium (Synthroid Tab*) 175 mcg PO 0600 [facility] Last Admin: 02/15/18 05:37 Dose: 175 mcg Magnesium Oxide (Magox 400 Tab*) 400 mg PO DAILY [facility] Last Admin: 02/15/18 09:51 Dose: 400 mg Nitroglycerin (Nitroglycerin Tab 0.4 Mg*) 0.4 mg SL Q5M PRN PRN Reason: PAIN - CHEST Nitroglycerin (Nitroglycerin Tab 0.4 Mg*) 0.4 mg SL Q5M PRN PRN Reason: ANGINA Paroxetine HCl (Paxil Tab*) 10 mg PO DAILY [facility] Last Admin: 02/15/18 09:51 Dose: 10 mg Pharmacy Profile Note (Coumadin Daily Reminder*) 1 note FOLLOW UP 1700 [facility] Last Admin: 02/14/18 18:04 Dose: 1 note Pharmacy Profile Note (Coumadin Per Pharmacy*) 1 note FOLLOW UP .PER PHARMACY [facility] PRN Reason: Protocol Rosuvastatin Calcium (Crestor (Nf)) 40 mg PO DAILY [facility] Last Admin: 02/15/18 12:03 Dose: 40 mg Sacubitril/Valsartan (Entresto 49/51(Nf)) 1 tab PO BID [facility] Last Admin: 02/15/18 09:50 Dose: 1 tab Spironolactone (Aldactone Tab*) 50 mg PO DAILY [facility] Last Admin: 02/15/18 09:50 Dose: 50 mg Warfarin Sodium (Coumadin Tab(*)) 10 mg PO DAILY@1700 [facility] PRN Reason: Protocol Stop: 02/15/18 17:01 Vital Signs - 8 hr 02/15/18 02/15/18 09:51 11:29 Temperature 98.1 F Pulse Rate 61 60 Respiratory 16 Rate Blood Pressure 118/61 (mmHg) O2 Sat by Pulse 97 Oximetry Oxygen Devices in Use Now: None Appearance: alert, sitting up in chair, comfortable Eyes: No Scleral Icterus Ears/Nose/Mouth/Throat: NL Teeth, Lips, Gums Neck: NL Appearance and Movements; NL JVP Respiratory: Symmetrical Chest Expansion and Respiratory Effort, Clear to Auscultation Cardiovascular: NL Sounds; No Murmurs; No JVD, No Edema Abdominal: NL Sounds; No Tenderness; No Distention, No Hepatosplenomegaly Lymphatic: No Cervical Adenopathy Extremities: No Edema Skin: No Rash or Ulcers, - - right ulnar puncture site with small hematoma, capillary refill 1 second Neurological: Alert and Oriented x 3 Result Diagrams: 02/15/18 06:03 02/14/18 23:27 Microbiology and Other Data: Microbiology 02/12/18 18:05 Nasal Screen MRSA (PCR)(HERIBERTO) - Final Nasal Mrsa Not Detected Assess/Plan/Problems-Billing Assessment: Mr. Guzmán is a 52 y.o male with history of CAD, prosthetic mitral valve, HTN, afib/ flutter, and pacemaker who presented to the ED with chest pain and was found to have ACS. Cardiac cath on 02/13 with stent placed in the Circumflex. - Patient Problems (1) Acute coronary syndrome Current Visit: Yes Status: Acute Code(s): I24.9 - ACUTE ISCHEMIC HEART DISEASE, UNSPECIFIED SNOMED Code(s): 702915949 Comment: s/p stent to circumflex 02/13 hemodynamically stable continue asa/plavix, statin, bb (2) Diabetes Current Visit: Yes Status: Acute Code(s): E11.9 - TYPE 2 DIABETES MELLITUS WITHOUT COMPLICATIONS SNOMED Code(s): 08663753 Comment: Finger sticks Lispro sliding scale poorly controlled with an a1c of 9.5 (3) Subtherapeutic international normalized ratio (INR) Current Visit: Yes Status: Acute Code(s): R79.1 - ABNORMAL COAGULATION PROFILE SNOMED Code(s): 446392142 Comment: goal 2.5-3.5 continue heparin/warfarin bridge for prosthetic valve increase warfarin dose today (4) Atrial flutter Current Visit: No Status: Acute Code(s): I48.92 - UNSPECIFIED ATRIAL FLUTTER SNOMED Code(s): 7191388 Comment: rate controlled on digoxin AC (5) Cardiomyopathy Current Visit: No Status: Acute Code(s): I42.9 - CARDIOMYOPATHY, UNSPECIFIED SNOMED Code(s): 89188147 Comment: ischemic chronic, compensated continue entresto, coreg, asa, aldactone januvia should not be continued at discharge Status and Disposition: inpatient until INR is therapeutic
[2018-02-15 23:35] LABS: ABS Basophils 0.1 10^3/ul (0-0.2); ABS Eosinophils 0.4 10^3/ul (0-0.6); ABS Lymphocytes 1.9 10^3/ul (1.0-4.8); ABS Monocytes 0.9 10^3/ul (0-0.8); ABS Neutrophils 4.5 10^3/ul (1.5-7.7); ABS Nucleated RBC 0 10^3/ul; Eosinophil % 5.3 % (0-6); Hematocrit 45 % (42-52); Hemoglobin 15.1 g/dl (14.0-18.0); Lymphocyte % 24.4 % (25-47); Mean Corpuscular HGB Conc 34 g/dl (31-36); Mean Corpuscular Hemoglobin 29 pg (27-31); Mean Corpuscular Volume 86 fL (80-94); Mean Platelet Volume 8.3 um3 (7.4-10.4); Nucleated Red Blood Cells % 0.1; Platelet Count 173 10^3/ul (150-450); Red Cell Distribution Width 15 % (10.5-15); White Blood Count 7.8 10^3/ul (3.5-10.8)
[2018-02-16 00:39] LABS: EGFR Non-African American 82.9 (>60)
[2018-02-16] MEDS: Levothyroxine TAB* 175 MCG TAB PO SCH (05:25)
[2018-02-16 06:28] LABS: INR 1.69 (0.77-1.02)
[2018-02-16 07:26] LABS: ABS Basophils 0.1 10^3/ul (0-0.2); ABS Eosinophils 0.4 10^3/ul (0-0.6); ABS Lymphocytes 1.6 10^3/ul (1.0-4.8); ABS Monocytes 0.7 10^3/ul (0-0.8); ABS Neutrophils 4.3 10^3/ul (1.5-7.7); ABS Nucleated RBC 0 10^3/ul; Eosinophil % 5.3 % (0-6); Hematocrit 46 % (42-52); Hemoglobin 15.6 g/dl (14.0-18.0); Lymphocyte % 22.5 % (25-47); Mean Corpuscular HGB Conc 34 g/dl (31-36); Mean Corpuscular Hemoglobin 29 pg (27-31); Mean Corpuscular Volume 87 fL (80-94); Mean Platelet Volume 8.7 um3 (7.4-10.4); Nucleated Red Blood Cells % 0.1; Platelet Count 180 10^3/ul (150-450); Red Blood Count 5.31 10^6/ul (4.00-5.40); Red Cell Distribution Width 15 % (10.5-15); White Blood Count 7.1 10^3/ul (3.5-10.8)
[2018-02-16] MEDS: Insulin LISPRO* 1 UNITS UNIT SUBCUT SCH ×4 (08:54→21:41)
[2018-02-16] MEDS: SACUBITRIL PO SCH ×2 (08:55→21:29)
[2018-02-16] MEDS: Clopidogrel TAB* 75 MG PO SCH (08:55)
[2018-02-16] MEDS: VALSARTAN PO SCH ×2 (08:55→21:29)
[2018-02-16] MEDS: Spironolactone TAB* 25 MG PO SCH (08:55)
[2018-02-16] MEDS: PARoxetine HCL TAB* 10 MG PO SCH (08:55)
[2018-02-16] MEDS: CMCS Rosuvastatin (NF) 20 MG TAB PO SCH (08:55)
[2018-02-16] MEDS: Aspirin EC TAB* 81 MG TAB.EC PO SCH (08:55)
[2018-02-16] MEDS: Digoxin TAB* 0.25 MG PO SCH (08:55)
[2018-02-16] MEDS: Magnesium Oxide TAB* 400 MG PO SCH (08:55)
[2018-02-16] MEDS: Carvedilol TAB* 6.25 MG PO SCH ×2 (08:55→21:29)
[2018-02-16] MEDS: Heparin DRIP 25,000 UNITS(*) 25,000 UNITS/500 ML BAG IV SCH (11:27)
--- NOTE | 2018-02-16 13:08 | PN ---
Subjective Date of Service: 02/16/18 Interval History: Pt feels well. Has been ambulating without any CP Family History: Unchanged from Admission Social History: Unchanged from Admission Past Medical History: Unchanged from Admission Objective Active Medications: Acetaminophen (Tylenol Tab*) 650 mg PO Q4H PRN PRN Reason: FEVER/PAIN Last Admin: 02/13/18 08:27 Dose: 650 mg Al Hydrox/Mg Hydrox/Simethicone (Maalox Plus*) 30 ml PO Q6H PRN PRN Reason: INDIGESTION Aspirin (Aspirin Ec Tab*) 81 mg PO DAILY [facility] Last Admin: 02/16/18 08:55 Dose: 81 mg Carvedilol (Coreg Tab*) 6.25 mg PO BID [facility] Last Admin: 02/16/18 08:55 Dose: 6.25 mg Clopidogrel Bisulfate (Plavix Tab*) 75 mg PO DAILY [facility] Last Admin: 02/16/18 08:55 Dose: 75 mg Dextrose (D50w Syringe 50 Ml*) 12.5 gm IV PUSH .FOR FS < 60 - SS PRN PRN Reason: FS < 60 Digoxin (Lanoxin Tab*) 0.25 mg PO DAILY [facility] Last Admin: 02/16/18 08:55 Dose: 0.25 mg Heparin Sodium (Porcine) (Heparin Vial(*)) 0 units IV .PER PROTOCOL [facility] Last Admin: 02/14/18 02:55 Dose: 2,000 units Heparin Sodium/Dextrose (Heparin Drip 25,000 Units(*)) 25,000 units in 500 mls @ 0 mls/hr IV PER RATE [facility]; Per Protocol PRN Reason: Protocol Last Admin: 02/16/18 11:27 Dose: 27 mls/hr Insulin Human Lispro (Humalog*) 0 units SUBCUT ACHS [facility] PRN Reason: Protocol Last Admin: 02/16/18 12:11 Dose: 9 units Levothyroxine Sodium (Synthroid Tab*) 175 mcg PO 0600 [facility] Last Admin: 02/16/18 05:25 Dose: 175 mcg Magnesium Oxide (Magox 400 Tab*) 400 mg PO DAILY [facility] Last Admin: 02/16/18 08:55 Dose: 400 mg Nitroglycerin (Nitroglycerin Tab 0.4 Mg*) 0.4 mg SL Q5M PRN PRN Reason: PAIN - CHEST Nitroglycerin (Nitroglycerin Tab 0.4 Mg*) 0.4 mg SL Q5M PRN PRN Reason: ANGINA Paroxetine HCl (Paxil Tab*) 10 mg PO DAILY [facility] Last Admin: 02/16/18 08:55 Dose: 10 mg Pharmacy Profile Note (Coumadin Per Pharmacy*) 1 note FOLLOW UP .PER PHARMACY PROTOC AJIT PRN Reason: Protocol Rosuvastatin Calcium (Crestor (Nf)) 40 mg PO DAILY [facility] Last Admin: 02/16/18 08:55 Dose: 40 mg Sacubitril/Valsartan (Entresto 49/51(Nf)) 1 tab PO BID [facility] Last Admin: 02/16/18 08:55 Dose: 1 tab Spironolactone (Aldactone Tab*) 50 mg PO DAILY [facility] Last Admin: 02/16/18 08:55 Dose: 50 mg Vital Signs - 8 hr 02/16/18 02/16/18 02/16/18 07:17 07:59 08:55 Temperature Pulse Rate 63 63 Respiratory 16 18 Rate Blood Pressure 118/71 (mmHg) O2 Sat by Pulse 98 Oximetry 02/16/18 11:20 Temperature 97.7 F Pulse Rate 60 Respiratory 14 Rate Blood Pressure 113/67 (mmHg) O2 Sat by Pulse 96 Oximetry Oxygen Devices in Use Now: None Appearance: 52 yo M in nAD, aAOx3 Eyes: No Scleral Icterus, PERRLA Ears/Nose/Mouth/Throat: NL Teeth, Lips, Gums, Mucous Membranes Moist Neck: NL Appearance and Movements; NL JVP, Trachea Midline Respiratory: Symmetrical Chest Expansion and Respiratory Effort, Clear to Auscultation Cardiovascular: NL Sounds; No Murmurs; No JVD, RRR Abdominal: NL Sounds; No Tenderness; No Distention Lymphatic: No Cervical Adenopathy Extremities: No Edema, No Clubbing, Cyanosis Skin: No Rash or Ulcers, No Nodules or Sclerosis Neurological: Alert and Oriented x 3, NL Muscle Strength and Tone Result Diagrams: 02/16/18 05:35 02/15/18 23:21 Microbiology and Other Data: Microbiology 02/12/18 18:05 Nasal Screen MRSA (PCR)(HERIBERTO) - Final Nasal Mrsa Not Detected Assess/Plan/Problems-Billing Assessment: Mr. Guzmán is a 52 y.o male with history of CAD, prosthetic mitral valve, HTN, afib/ flutter, and pacemaker who presented to the ED with chest pain and was found to have ACS. Cardiac cath on 02/13 with stent placed in the Circumflex. - Patient Problems (1) Acute coronary syndrome Comment: s/p stent to circumflex 02/13 hemodynamically stable continue asa/plavix, statin, bb (2) Diabetes Comment: Finger sticks Lispro sliding scale poorly controlled with an a1c of 9.5 (3) Hypothyroid Comment: Continue Levothyroxine (4) Subtherapeutic international normalized ratio (INR) Comment: goal 2.5-3.5 continue heparin/warfarin bridge for prosthetic valve warfarin dosing per protocol (5) Atrial flutter Comment: rate controlled on digoxin AC (6) Cardiomyopathy Comment: ischemic chronic, compensated continue entresto, coreg, asa, aldactone januvia should not be continued at discharge (7) DVT prophylaxis Comment: coumadin/heparin gtt Status and Disposition: inpatient until INR is therapeutic
[2018-02-16] MEDS ORDERED: Warfarin TAB(*) 10 MG PO ONE (17:00)
[2018-02-16 23:44] LABS: ABS Basophils 0 10^3/ul (0-0.2); ABS Eosinophils 0.5 10^3/ul (0-0.6); ABS Lymphocytes 1.9 10^3/ul (1.0-4.8); ABS Monocytes 0.7 10^3/ul (0-0.8); ABS Neutrophils 4.8 10^3/ul (1.5-7.7); ABS Nucleated RBC 0 10^3/ul; Hematocrit 46 % (42-52); Hemoglobin 15.4 g/dl (14.0-18.0); Lymphocyte % 23.7 % (25-47); Mean Corpuscular HGB Conc 34 g/dl (31-36); Mean Corpuscular Hemoglobin 29 pg (27-31); Mean Corpuscular Volume 87 fL (80-94); Mean Platelet Volume 8.2 um3 (7.4-10.4); Nucleated Red Blood Cells % 0.1; Platelet Count 177 10^3/ul (150-450); Red Blood Count 5.28 10^6/ul (4.00-5.40); Red Cell Distribution Width 15 % (10.5-15)
[2018-02-17] LABS: EGFR Non-African American 104.1 (>60)
[2018-02-17] MEDS: Levothyroxine TAB* 175 MCG TAB PO SCH (06:15)
[2018-02-17 06:50] LABS: ABS Basophils 0 10^3/ul (0-0.2); ABS Eosinophils 0.5 10^3/ul (0-0.6); ABS Lymphocytes 1.7 10^3/ul (1.0-4.8); ABS Monocytes 0.7 10^3/ul (0-0.8); ABS Nucleated RBC 0 10^3/ul; Hematocrit 47 % (42-52); Hemoglobin 16.1 g/dl (14.0-18.0); Lymphocyte % 21.2 % (25-47); Mean Corpuscular HGB Conc 34 g/dl (31-36); Mean Corpuscular Hemoglobin 29 pg (27-31); Mean Corpuscular Volume 87 fL (80-94); Mean Platelet Volume 8.3 um3 (7.4-10.4); Nucleated Red Blood Cells % 0.1; Platelet Count 191 10^3/ul (150-450); Red Blood Count 5.47 10^6/ul (4.00-5.40); Red Cell Distribution Width 15 % (10.5-15); White Blood Count 7.9 10^3/ul (3.5-10.8)
[2018-02-17 07:15] LABS: INR 2.26 (0.77-1.02)
[2018-02-17] MEDS: Insulin LISPRO* 1 UNITS UNIT SUBCUT SCH ×4 (07:58→21:30)
[2018-02-17] MEDS: CMCS Rosuvastatin (NF) 20 MG TAB PO SCH (07:59)
[2018-02-17] MEDS: SACUBITRIL PO SCH ×2 (07:59→21:30)
[2018-02-17] MEDS: Magnesium Oxide TAB* 400 MG PO SCH (07:59)
[2018-02-17] MEDS: VALSARTAN PO SCH ×2 (07:59→21:30)
[2018-02-17] MEDS: Digoxin TAB* 0.25 MG PO SCH (08:00)
[2018-02-17] MEDS: PARoxetine HCL TAB* 10 MG PO SCH (08:00)
[2018-02-17] MEDS: Carvedilol TAB* 6.25 MG PO SCH ×2 (08:00→21:30)
[2018-02-17] MEDS: Aspirin EC TAB* 81 MG TAB.EC PO SCH (08:00)
[2018-02-17] MEDS: Spironolactone TAB* 25 MG PO SCH (08:00)
[2018-02-17] MEDS: Clopidogrel TAB* 75 MG PO SCH (08:00)
[2018-02-17] MEDS: Heparin DRIP 25,000 UNITS(*) 25,000 UNITS/500 ML BAG IV SCH (08:02)
--- NOTE | 2018-02-17 13:55 | PN ---
Subjective Date of Service: 02/17/18 Interval History: Pt has no complaints Family History: Unchanged from Admission Social History: Unchanged from Admission Past Medical History: Unchanged from Admission Objective Active Medications: Acetaminophen (Tylenol Tab*) 650 mg PO Q4H PRN PRN Reason: FEVER/PAIN Last Admin: 02/13/18 08:27 Dose: 650 mg Al Hydrox/Mg Hydrox/Simethicone (Maalox Plus*) 30 ml PO Q6H PRN PRN Reason: INDIGESTION Aspirin (Aspirin Ec Tab*) 81 mg PO DAILY [facility] Last Admin: 02/17/18 08:00 Dose: 81 mg Carvedilol (Coreg Tab*) 6.25 mg PO BID [facility] Last Admin: 02/17/18 08:00 Dose: 6.25 mg Clopidogrel Bisulfate (Plavix Tab*) 75 mg PO DAILY [facility] Last Admin: 02/17/18 08:00 Dose: 75 mg Dextrose (D50w Syringe 50 Ml*) 12.5 gm IV PUSH .FOR FS < 60 - SS PRN PRN Reason: FS < 60 Digoxin (Lanoxin Tab*) 0.25 mg PO DAILY [facility] Last Admin: 02/17/18 08:00 Dose: 0.25 mg Heparin Sodium (Porcine) (Heparin Vial(*)) 0 units IV .PER PROTOCOL [facility] Last Admin: 02/14/18 02:55 Dose: 2,000 units Heparin Sodium/Dextrose (Heparin Drip 25,000 Units(*)) 25,000 units in 500 mls @ 0 mls/hr IV PER RATE AJIT; Per Protocol PRN Reason: Protocol Last Admin: 02/17/18 08:02 Dose: 23 mls/hr Insulin Human Lispro (Humalog*) 0 units SUBCUT ACHS [facility] PRN Reason: Protocol Last Admin: 02/17/18 12:25 Dose: 3 units Levothyroxine Sodium (Synthroid Tab*) 175 mcg PO 0600 [facility] Last Admin: 02/17/18 06:15 Dose: 175 mcg Magnesium Oxide (Magox 400 Tab*) 400 mg PO DAILY [facility] Last Admin: 02/17/18 07:59 Dose: 400 mg Nitroglycerin (Nitroglycerin Tab 0.4 Mg*) 0.4 mg SL Q5M PRN PRN Reason: PAIN - CHEST Nitroglycerin (Nitroglycerin Tab 0.4 Mg*) 0.4 mg SL Q5M PRN PRN Reason: ANGINA Paroxetine HCl (Paxil Tab*) 10 mg PO DAILY [facility] Last Admin: 02/17/18 08:00 Dose: 10 mg Pharmacy Profile Note (Coumadin Per Pharmacy*) 1 note FOLLOW UP .PER PHARMACY PROTOC [facility] PRN Reason: Protocol Rosuvastatin Calcium (Crestor (Nf)) 40 mg PO DAILY [facility] Last Admin: 02/17/18 07:59 Dose: 40 mg Sacubitril/Valsartan (Entresto 49/51(Nf)) 1 tab PO BID [facility] Last Admin: 02/17/18 07:59 Dose: 1 tab Spironolactone (Aldactone Tab*) 50 mg PO DAILY [facility] Last Admin: 02/17/18 08:00 Dose: 50 mg Warfarin Sodium (Coumadin Tab(*)) 5 mg PO 1700 ONE Stop: 02/17/18 17:01 Warfarin Sodium (Coumadin Tab(*)) 2 mg PO 1700 ONE Stop: 02/17/18 17:01 Vital Signs - 8 hr 02/17/18 02/17/18 02/17/18 07:18 08:00 11:23 Temperature 97.7 F 97.6 F Pulse Rate 59 77 60 Respiratory 16 16 18 Rate Blood Pressure 118/72 120/67 (mmHg) O2 Sat by Pulse 97 100 Oximetry Oxygen Devices in Use Now: None Appearance: 52 yo m in nAd, aAOx3 Eyes: No Scleral Icterus, PERRLA Ears/Nose/Mouth/Throat: NL Teeth, Lips, Gums, Mucous Membranes Moist Neck: NL Appearance and Movements; NL JVP, Trachea Midline Respiratory: Symmetrical Chest Expansion and Respiratory Effort, Clear to Auscultation Cardiovascular: NL Sounds; No Murmurs; No JVD, RRR Abdominal: NL Sounds; No Tenderness; No Distention Lymphatic: No Cervical Adenopathy Extremities: No Edema, No Clubbing, Cyanosis Skin: No Rash or Ulcers, No Nodules or Sclerosis Neurological: Alert and Oriented x 3, NL Muscle Strength and Tone Result Diagrams: 02/17/18 06:30 02/16/18 23:32 Microbiology and Other Data: Microbiology 02/12/18 18:05 Nasal Screen MRSA (PCR)(HERIBERTO) - Final Nasal Mrsa Not Detected Assess/Plan/Problems-Billing Assessment: Mr. Guzmán is a 52 y.o male with history of CAD, prosthetic mitral valve, HTN, afib/ flutter, and pacemaker who presented to the ED with chest pain and was found to have ACS. Cardiac cath on 02/13 with stent placed in the Circumflex. - Patient Problems (1) Acute coronary syndrome Comment: s/p stent to circumflex 02/13 hemodynamically stable continue asa/plavix, statin, bb (2) Diabetes Comment: Finger sticks Lispro sliding scale poorly controlled with an a1c of 9.5 (3) Hypothyroid Comment: Continue Levothyroxine (4) Subtherapeutic international normalized ratio (INR) Comment: goal 2.5-3.5 continue heparin/warfarin bridge for prosthetic valve warfarin dosing per protocol, INR 2.32-will need one more day of hospital stay to overlap with heparin gtt (5) Atrial flutter Comment: rate controlled on digoxin AC (6) Cardiomyopathy Comment: ischemic chronic, compensated continue entresto, coreg, asa, aldactone januvia should not be continued at discharge (7) DVT prophylaxis Comment: coumadin/heparin gtt Status and Disposition: inpatient until INR is therapeutic x 24h
[2018-02-17] MEDS ORDERED: Warfarin TAB(*) 5 MG PO ONE (17:00)
[2018-02-17] MEDS ORDERED: Warfarin TAB(*) 2 MG PO ONE (17:00)
[2018-02-18 05:46] LABS: INR 2.58 (0.77-1.02)
[2018-02-18 05:49] LABS: ABS Basophils 0.1 10^3/ul (0-0.2); ABS Eosinophils 0.6 10^3/ul (0-0.6); ABS Monocytes 0.7 10^3/ul (0-0.8); ABS Neutrophils 5.4 10^3/ul (1.5-7.7); ABS Nucleated RBC 0 10^3/ul; Eosinophil % 6.9 % (0-6); Hematocrit 49 % (42-52); Hemoglobin 16.7 g/dl (14.0-18.0); Lymphocyte % 22.4 % (25-47); Mean Corpuscular HGB Conc 34 g/dl (31-36); Mean Corpuscular Hemoglobin 30 pg (27-31); Mean Corpuscular Volume 86 fL (80-94); Mean Platelet Volume 8.6 um3 (7.4-10.4); Nucleated Red Blood Cells % 0.1; Platelet Count 195 10^3/ul (150-450); Red Blood Count 5.64 10^6/ul (4.00-5.40); Red Cell Distribution Width 15 % (10.5-15); White Blood Count 8.8 10^3/ul (3.5-10.8)
[2018-02-18 06:01] LABS: EGFR Non-African American 101.1 (>60)
[2018-02-18 06:06] VITALS: BP 111/68
[2018-02-18] MEDS: Heparin DRIP 25,000 UNITS(*) 25,000 UNITS/500 ML BAG IV SCH (06:10)
[2018-02-18] MEDS: Heparin VIAL(*) 5000 UNITS/ML VIAL (FIVE THOUSAND) IV SCH (06:11)
[2018-02-18] MEDS: Levothyroxine TAB* 175 MCG TAB PO SCH (06:14)
[2018-02-18] MEDS ORDERED: Magnesium Sulfate 1 GM IV* 1 GM/100 ML BAG IV ONE (08:00)
[2018-02-18] MEDS: Insulin LISPRO* 1 UNITS UNIT SUBCUT SCH (08:40)
[2018-02-18] MEDS: Spironolactone TAB* 25 MG PO SCH (08:41)
[2018-02-18] MEDS: PARoxetine HCL TAB* 10 MG PO SCH (08:41)
[2018-02-18] MEDS: Clopidogrel TAB* 75 MG PO SCH (08:41)
[2018-02-18] MEDS: Aspirin EC TAB* 81 MG TAB.EC PO SCH (08:41)
[2018-02-18] MEDS: Magnesium Oxide TAB* 400 MG PO SCH (08:41)
[2018-02-18] MEDS: Digoxin TAB* 0.25 MG PO SCH (08:41)
[2018-02-18] MEDS: Carvedilol TAB* 6.25 MG PO SCH (08:41)
[2018-02-18] MEDS: SACUBITRIL PO SCH (08:44)
[2018-02-18] MEDS: VALSARTAN PO SCH (08:44)
[2018-02-18] MEDS: CMCS Rosuvastatin (NF) 20 MG TAB PO SCH (08:44)
--- NOTE | 2018-02-18 11:54 | DS ---
CC: ASHLEY Ruth; Dr. Chavira; Dr. Hill; Caro Goldberg NP DISCHARGE SUMMARY: DATE OF ADMISSION: 02/12/18 DATE OF DISCHARGE: 02/18/18 PRIMARY CARE PROVIDER: [facility], ASHLEY Ruth. DISCHARGE DIAGNOSIS: Acute coronary syndrome with non-ST elevation myocardial infarction, status post cardiac catheterization and stent placement by Dr. Hill on 02/13/18. The stent was placed into the circumflex artery. SECONDARY DIAGNOSES: 1. History of status post mechanical mitral valve replacement, on chronic anticoagulation. 2. History of chronic systolic congestive heart failure with EF of 30% to 35%. 3. History of atrial fibrillation/flutter. 4. History of coronary artery disease. The patient claims he has a total of 2 stents. 5. Hypertension. 6. Pacemaker. 7. History of ablation in the past. MEDICATIONS AT DISCHARGE: Include: 1. Aspirin 81 mg daily. 2. Plavix 75 mg daily. 3. Coumadin 6 mg daily. 4. Coreg 6.25 mg b.i.d. 5. Farxiga 10 mg daily. 6. Digoxin 0.25 mg daily. 7. Synthroid 175 mcg daily. 8. Mag-Ox 400 mg daily. 9. Metformin 1000 mg b.i.d. 10. Nitroglycerin 0.4 mg sublingual on a p.r.n. basis. 11. Paxil 10 mg daily. 12. Crestor 20 mg daily. 13. Entresto 1 tablet b.i.d. 14. Aldactone 50 mg daily. Please note that medication changes were as follows: 1. Plavix was started. 2. The patient's Janumet was changed into metformin only with discontinuation of the Januvia part of Janumet due to increased risk of congestive heart failure in patients with cardiomyopathy while on this medication. CONSULTATIONS DURING THE HOSPITAL STAY: Included Cardiology; Dr. Chavira and Dr. Hill. PROCEDURE PERFORMED: Cardiac catheterization on 02/13/18 with stenting into the circumflex. LABORATORY DATA AND STUDIES PERFORMED DURING THE HOSPITAL STAY: Included: On 02/18/18: Sodium of 132, potassium of 4.0, chloride 102, carbon dioxide 23, BUN 11, creatinine 0.8, magnesium was 1.8, calcium of 9.1. CBC: White blood cell count 8.8, hemoglobin of 16.7, hematocrit of 49, platelets of 195,000. INR was 2.58. The patient's digoxin level was 0.8 on the day of discharge. Cardiac catheterization procedure on 02/13/18, impression: "Significant OM1 ostial stenosis, moderate stenosis of small third marginal, excellent angiographic result with drug-eluting stent placement in OM1. OM2 was not stented because of small vessel size and small distribution. Widely patent previously placed RCA stent. Severe left ventricular systolic dysfunction with estimated EF of 25%. Normally functioning prosthetic [employer] mitral valve prosthesis. Successful right ulnar access but radial access was unsuccessful because of small vessel size and failure to enter even with the use of ultrasound guidance. " HOSPITALIZATION COURSE: Rich is a 52-year-old male with history of coronary artery disease and diabetes who presented to the hospital complaining of chest pain. He was diagnosed with non-ST elevation CA. His troponins peaked at 2.4 on 02/12/18. The patient underwent cardiac catheterization by Dr. Hill on 02/13/18 with stenting as above. Due to the patient having mechanical mitral valve, his anticoagulation was held and then the patient was started on heparin drip with bridging into Coumadin. By the time of discharge, the patient had had INR above 2 over 24 hours. His heparin dose is going to be discontinued and the patient is going to be discharged home with recommendations to follow up with his primary care provider in approximately 4 to 7 days. The patient already has a scheduled appointment with Caro Goldberg NP, [facility] on 02/20/18 for followup. DIET AT DISCHARGE: Cardiac and diabetic. PHYSICAL EXAMINATION: At the time of discharge, blood pressure 111/68, heart rate of 59 and regular, respiratory rate 16, oxygen saturation 95% on room air, temperature 97.9. General: The patient is a very pleasant 52-year-old male who is in no acute distress, alert, awake and oriented x3. HEENT: Head atraumatic, normocephalic. Eyes: Pupils equal, round, and reactive to light and accommodation. Oropharynx is clear. Mucosa is moist. Neck: Supple. No JVD. No bruits bilaterally. Cardiovascular: irregular rhythm. No murmur. Respiratory: Clear to auscultation bilaterally. Abdomen: Soft, nontender. Bowel sounds present in all 4 quadrants. Extremities: There is no edema. Pulses 2+ bilaterally. No clubbing or cyanosis. On neuro evaluation, speech clear. Cranial nerves II through XII grossly intact. Motor strength is 5/5 bilaterally. Please note that this a short summary of the patient's hospitalization. Please refer to further medical records for details. TIME SPENT: Approximately 45 minutes were spent in preparation of the patient for discharge. [id number]/[facility] #: [id number] [facility]
[2018-02-18] MEDS ORDERED: Warfarin TAB(*) 2 MG PO ONE (17:00)
[2018-02-18] MEDS ORDERED: Warfarin TAB(*) 5 MG PO ONE (17:00)
== END 2018-02-18 11:41 | disposition home or self-care (01) | DRG 247 ==
LOC: ED 12:29 → ICU 15:13 → OBSVTOIN 02-13 16:00 → MEDTELE 02-14 12:00
PROVIDERS: ADMIT Internal Medicine; ATTEND Internal Medicine
PROC: B2111ZZ Fluoroscopy of Multiple Coronary Arteries using Low Osmolar Contrast (ICD-10-PCS; 2018-02-13)
PROC: 4A023N7 Measurement of Cardiac Sampling and Pressure, Left Heart, Percutaneous Approach (ICD-10-PCS; 2018-02-13)
PROC: B2151ZZ Fluoroscopy of Left Heart using Low Osmolar Contrast (ICD-10-PCS; 2018-02-13)
PROC: 027034Z Dilation of Coronary Artery, One Artery with Drug-eluting Intraluminal Device, Percutaneous Approach (ICD-10-PCS; principal; 2018-02-13 12:15)
DX: I21.4 Non-ST elevation (NSTEMI) myocardial infarction (principal); I50.22 Chronic systolic (congestive) heart failure; I48.92 Unspecified atrial flutter; E11.9 Type 2 diabetes mellitus without complications; I25.10 Atherosclerotic heart disease of native coronary artery without angina pectoris; G47.30 Sleep apnea, unspecified; I11.0 Hypertensive heart disease with heart failure; I25.5 Ischemic cardiomyopathy; E78.5 Hyperlipidemia, unspecified; I48.0 Paroxysmal atrial fibrillation; E03.9 Hypothyroidism, unspecified; S60.211A Contusion of right wrist, initial encounter; X58.XXXA Exposure to other specified factors, initial encounter; Y92.239 Unspecified place in hospital as the place of occurrence of the external cause; Z88.1 Allergy status to other antibiotic agents; Z88.8 Allergy status to other drugs, medicaments and biological substances; Z95.810 Presence of automatic (implantable) cardiac defibrillator; I25.2 Old myocardial infarction; Z95.2 Presence of prosthetic heart valve; Z95.5 Presence of coronary angioplasty implant and graft; Z82.49 Family history of ischemic heart disease and other diseases of the circulatory system; Z82.0 Family history of epilepsy and other diseases of the nervous system; Z87.891 Personal history of nicotine dependence; Z72.89 Other problems related to lifestyle; Z79.82 Long term (current) use of aspirin; Z79.02 Long term (current) use of antithrombotics/antiplatelets; Z79.01 Long term (current) use of anticoagulants; Z79.84 Long term (current) use of oral hypoglycemic drugs
CPT/HCPCS: 36415; 71045; 80048; 80053; 80162; 82565; 82947; 83036; 83605; 83735; 84484; 84520; 85025; 85610; 85730; 87641; 93005; 93458; 99156; 99157; 99285; A9270-GY; C1725; C1769; C1876; C1887; C9600-LC; G0378; J1644; J2250; J2270; J3010; J3475

== ENCOUNTER 2018-09-08 15:33 | Inpatient (IN) | payer MEDICARE, MEDICAID ==
[2018-09-08] MEDS ORDERED: NS 0.9% 1000 ML* 1,000 ML IV ONE ×2 (16:08→16:58)
[2018-09-08 16:37] LABS: ABS Basophils 0.1 10^3/ul (0-0.2); ABS Eosinophils 0.2 10^3/ul (0-0.6); ABS Lymphocytes 1.6 10^3/ul (1.0-4.8); ABS Monocytes 0.9 10^3/ul (0-0.8); ABS Neutrophils 7.7 10^3/ul (1.5-7.7); ABS Nucleated RBC 0 10^3/ul; Eosinophil % 1.6 %; Hematocrit 31 % (42-52); Hemoglobin 10.2 g/dl (14.0-18.0); Lymphocyte % 15.1 %; Mean Corpuscular HGB Conc 33 g/dl (31-36); Mean Corpuscular Hemoglobin 27 pg (27-31); Mean Corpuscular Volume 83 fL (80-94); Mean Platelet Volume 7.8 fL (7.4-10.4); Nucleated Red Blood Cells % 0.1; Platelet Count 263 10^3/ul (150-450); Red Blood Count 3.75 10^6/ul (4.00-5.40); Red Cell Distribution Width 15 % (10.5-15); White Blood Count 10.4 10^3/ul (3.5-10.8)
[2018-09-08 16:54] LABS: Albumin 4.1 g/dL (3.2-5.2); Albumin/Globulin Ratio 1.6 (1-3); BUN/Creatinine Ratio 31.1 (8-20); C Reactive Protein 1.79 mg/L (<8.01); Calcium 8.5 mg/dL (8.6-10.3); EGFR Non-African American 72.8 (>60); Globulin 2.5 g/dL (2-4); Magnesium 2.2 mg/dL (1.9-2.7); Potassium 4.3 mmol/L (3.5-5.0); Total Bilirubin 0.6 mg/dL (0.2-1.0); Total Protein 6.6 g/dL (6.4-8.9)
[2018-09-08 16:57] LABS: INR 3.29 (0.77-1.02)
[2018-09-08] MEDS ORDERED: Iodixanol* (CONTRAST) 320 MG/ML 100 ML SDV IV ONE (16:57)
[2018-09-08] MEDS ORDERED: Insulin REGULAR(*) 1 UNITS UNIT IV PUSH ONE (16:58)
[2018-09-08] MEDS ORDERED: Insulin REGULAR(*) 1 UNITS UNIT ONE (17:00)
--- NOTE | 2018-09-08 17:05 | ED ---
Abdominal Pain/Male - HPI Summary HPI Summary: A 53 y/o male presents accompanied by family presents to the ED c/o uncomfortable abdominal pain. Additionally c.o diarrhea, dizziness, and weakness. In the ED room, the patient has a pulse of 62 BPM, O2 saturation of 100% and blood pressure of 147/71. As per triage, "Pt c/o abd pain, dizziness, weakness and fast heart when he stands. Pt states he has had lots of diarrhea and nausea. Pt has cardiac hx". According to the patient, he has been experiencing uncomfortable stomach pain coupled with watery diarrhea for some time. He noted that when he stands he gets SOB, dizzy, and feels weak. He wasn' t able to get a good look at his diarrhea, but he did say that it foul smelled. The patient's stated that she has had the same meals the patient has had for the past couple days and there was nothing out of the unusual that he was eating. Additionally, they have not eaten take-out and there is no one sick at home. Patient denies any fevers, but feels hot. Patient has had no recent antibiotics or a history with them. Patient has a length cardiac history such as 2 PA's, pacemaker, HBP, high cholesterol, DM, tachycardia, mechanical mitral valve, etc. Patient is on Coumadin and Plavix. - History of Current Complaint Chief Complaint: EDAbdPain Stated Complaint: ABD PAIN Time Seen by Provider: 09/08/18 15:52 Hx Obtained From: Patient Onset/Duration: Sudden Onset, Still Present Timing: Constant Severity Currently: None Pain Intensity: 0 Pain Scale Used: 0-10 Numeric Location: Discrete At: LLQ Radiates: No Aggravating Factor(s): Nothing Alleviating Factor(s): Nothing Associated Signs And Symptoms: Positive: Dizzy, Nausea, Diarrhea - Allergies/Home Medications Allergies/Adverse Reactions: Allergies Allergy/AdvReac Type Severity Reaction Status Date / Time atorvastatin Allergy Rash Verified 02/12/18 13:09 azithromycin Allergy Hives Verified 02/12/18 13:09 metoprolol Allergy Rash Verified 02/12/18 13:09 ramipril Allergy Rash Verified 02/12/18 13:09 Home Medications: Home Medications Dofetilide CAP* [Tikosyn CAP*] 500 mcg PO BID 09/08/18 [History Confirmed ] PMH/Surg Hx/FS Hx/Imm Hx Endocrine/Hematology History: Reports: Hx Anticoagulant Therapy - coumadin, asa , Hx Diabetes, Hx Thyroid Disease Cardiovascular History: Reports: Hx Angina, Hx Auto Implanted Cardiovert Defib, Hx Coronary Artery Disease, Hx Hypercholesterolemia, Hx Hypertension, Hx Myocardial Infarction, Hx Pacemaker/ICD, Hx Valvular Heart Disease - mitral, Other Cardiovascular Problems/Disorders - mechanical valve Denies: Hx Congestive Heart Failure Respiratory History: Reports: Hx Sleep Apnea - cpap, but does not use Denies: Hx Asthma, Hx Chronic Obstructive Pulmonary Disease (COPD) GI History: Reports: Other GI Disorders - gastroenteritis History: Denies: Hx Dialysis, Hx Renal Disease Musculoskeletal History: Denies: Hx Arthritis, Hx Rheumatoid Arthritis, Hx Osteoporosis Sensory History: Reports: Hx Contacts or Glasses Denies: Hx Hearing Aid Opthamlomology History: Reports: Hx Contacts or Glasses Neurological History: Reports: Hx Headaches - Surgical History Surgery Procedure, Year, and Place: MITRAL VALVE REPLACEMENT (2 SURGERIES), PACEMAKER, CARDIAC STENT Infectious Disease History: No Infectious Disease History: Denies: Traveled Outside the [place] in Last 30 Days - Family History Known Family History: Positive: Cardiac Disease - Father: PA at age 38 Family History: Mother: Alzheimer's disease. - Social History Alcohol Use: Rare Substance Use Type: Reports: None Smoking Status (MU): Former Smoker Review of Systems Positive: Other - POSITIVE: PATIENT FEELS HOT. Negative: Fever Positive: Shortness Of Breath Positive: Abdominal Pain, Diarrhea, Nausea Neurological: Other - NEGATIVE: DIZZINESS Positive: Weakness All Other Systems Reviewed And Are Negative: Yes Physical Exam - Summary Physical Exam Summary: VITAL SIGNS: Reviewed. GENERAL: Patient is a well-developed and nourished male who is lying comfortable in the stretcher. Patient is not in any acute respiratory distress. HEAD AND FACE: Normocephalic and atraumatic. EYES: PERRLA, EOMI x 2, No injected conjunctiva. EARS: Hearing grossly intact. Ear canals and tympanic membranes are WNL. MOUTH: Oropharynx within normal limits. NECK: Supple, trachea is midline, no adenopathy, no JVD. CHEST: Symmetric, no tenderness at palpation LUNGS: Clear to auscultation bilaterally. No wheezing or crackles. CVS: RRR, S1 and S2 present, no murmurs or gallops appreciated. ABDOMEN: Soft. No signs of distention. Positive bowel sounds. No rebound no guarding, and no masses palpated. No abdominal bruit or pulsations. Some diffuse abdominal tenderness EXTREMITIES: FROM in all major joints, no edema, no cyanosis or clubbing. NEURO: Alert and oriented x 3. No acute neurological deficits. Speech is normal. SKIN: Clammy Triage Information Reviewed: Yes Vital Signs On Initial Exam: Initial Vitals Temp Pulse Resp BP Pulse Ox 97.0 F 65 15 130/66 100 09/08/18 15:38 09/08/18 15:38 09/08/18 15:38 09/08/18 15:38 09/08/18 15:38 Vital Signs Reviewed: Yes Diagnostics - Vital Signs Vital Signs Temp Pulse Resp BP Pulse Ox 09/08/18 16:28 60 19 128/75 100 09/08/18 16:24 60 17 134/70 100 09/08/18 16:01 71 15 89 09/08/18 15:59 60 13 147/71 100 09/08/18 15:38 97.0 F 65 15 130/66 100 - Laboratory Lab Results: Lab Results 09/08/18 09/08/18 09/08/18 Range/Units 16:26 16:26 16:26 WBC 10.4 (3.5-10.8) 10^3/ul RBC 3.75 L (4.00-5.40) 10^6/ul Hgb 10.2 L (14.0-18.0) g/dl Hct 31 L (42-52) % MCV 83 (80-94) fL MCH 27 (27-31) pg MCHC 33 (31-36) g/dl RDW 15 (10.5-15) % Plt Count 263 (150-450) 10^3/ul MPV 7.8 (7.4-10.4) fL Neut % (Auto) 73.7 % Lymph % (Auto) 15.1 % [facility] % (Auto) 8.6 % Eos % (Auto) 1.6 % Baso % (Auto) 1.0 % Absolute Neuts (auto) 7.7 (1.5-7.7) 10^3/ul Absolute Lymphs (auto) 1.6 (1.0-4.8) 10^3/ul Absolute Monos (auto) 0.9 H (0-0.8) 10^3/ul Absolute Eos (auto) 0.2 (0-0.6) 10^3/ul Absolute Basos (auto) 0.1 (0-0.2) 10^3/ul Absolute Nucleated RBC 0 10^3/ul Nucleated RBC % 0.1 Sodium 132 L (135-145) mmol/L Potassium 4.3 (3.5-5.0) mmol/L Chloride 101 (101-111) mmol/L Carbon Dioxide 21 L (22-32) mmol/L Anion Gap 10 (2-11) mmol/L BUN 33 H (6-24) mg/dL Creatinine 1.06 (0.67-1.17) mg/dL Est GFR ( Amer) 88.1 (>60) Est GFR (Non-Af Amer) 72.8 (>60) BUN/Creatinine Ratio 31.1 H (8-20) Glucose 322 H (70-100) mg/dL Lactic Acid 2.7 H* (0.5-2.0) mmol/L Calcium 8.5 L (8.6-10.3) mg/dL Magnesium 2.2 (1.9-2.7) mg/dL Total Bilirubin 0.60 (0.2-1.0) mg/dL AST 21 (13-39) U/L ALT 27 (7-52) U/L Alkaline Phosphatase 43 (34-104) U/L Troponin I 0.01 (<0.04) ng/mL C-Reactive Protein 1.79 (<8.01) mg/L Total Protein 6.6 (6.4-8.9) g/dL Albumin 4.1 (3.2-5.2) g/dL Globulin 2.5 (2-4) g/dL Albumin/Globulin Ratio 1.6 (1-3) Lipase 27 (11.0-82.0) U/L Blood Type Antibody Screen 09/08/18 Range/Units 16:26 WBC (3.5-10.8) 10^3/ul RBC (4.00-5.40) 10^6/ul Hgb (14.0-18.0) g/dl Hct (42-52) % MCV (80-94) fL MCH (27-31) pg MCHC (31-36) g/dl RDW (10.5-15) % Plt Count (150-450) 10^3/ul MPV (7.4-10.4) fL Neut % (Auto) % Lymph % (Auto) % [facility] % (Auto) % Eos % (Auto) % Baso % (Auto) % Absolute Neuts (auto) (1.5-7.7) 10^3/ul Absolute Lymphs (auto) (1.0-4.8) 10^3/ul Absolute Monos (auto) (0-0.8) 10^3/ul Absolute Eos (auto) (0-0.6) 10^3/ul Absolute Basos (auto) (0-0.2) 10^3/ul Absolute Nucleated RBC 10^3/ul Nucleated RBC % Sodium (135-145) mmol/L Potassium (3.5-5.0) mmol/L Chloride (101-111) mmol/L Carbon Dioxide (22-32) mmol/L Anion Gap (2-11) mmol/L BUN (6-24) mg/dL Creatinine (0.67-1.17) mg/dL Est GFR ( Amer) (>60) Est GFR (Non-Af Amer) (>60) BUN/Creatinine Ratio (8-20) Glucose (70-100) mg/dL Lactic Acid (0.5-2.0) mmol/L Calcium (8.6-10.3) mg/dL Magnesium (1.9-2.7) mg/dL Total Bilirubin (0.2-1.0) mg/dL AST (13-39) U/L ALT (7-52) U/L Alkaline Phosphatase (34-104) U/L Troponin I (<0.04) ng/mL C-Reactive Protein (<8.01) mg/L Total Protein (6.4-8.9) g/dL Albumin (3.2-5.2) g/dL Globulin (2-4) g/dL Albumin/Globulin Ratio (1-3) Lipase (11.0-82.0) U/L Blood Type B Positive Antibody Screen Pending Result Diagrams: 09/09/18 06:55 09/09/18 06:55 Lab Statement: Any lab studies that have been ordered have been reviewed, and results considered in the medical decision making process. - CT CT A/P CT Interpretation Completed By: Radiologist Summary of CT Findings: 1. No CT apparent acute abnormality of the gastrointestinal tract that would account for the patient's presenting symptoms. 2. Homogenous hypoattenuation of the liver parenchyma could be seen in the setting of hepatic steatosis. 3. Mixed attenuation atherosclerosis at the lower abdominal aorta extending of the common iliac arteries causing what might be high-grade stenosis at the right common iliac artery. Please correlate to any signs or symptoms of lower extremity or pelvic claudication. 4. There is apparent high-grade stenosis at the origin of the celiac trunk. Questionably hypertrophied arteries coursing in the cephalad direction just anterior to the infrarenal abdominal aorta may be providing compensatory flow for stenotic celiac trunk. Evaluation on this examination is limited as this is not arteriographic phase imaging. The clinical significance of this is uncertain. ED PHYSICIAN REVIEWED THIS RADIOLOGY REPORT. - EKG 1607 Cardiac Rate: Other Rate - 60 BPM EKG Rhythm: Atrial Fibrillation - 60 BPM EKG Comparison: No Significant Change - COMPARED WITH EKG ON 02/16/2018 Re-Evaluation - Re-Evaluation First Eval Re-Evaluation Time: 18:19 Change: Improved Comment: PATIENT FEES MUCH BETTER. PATIENT DOES NOT HAVE ANY PAIN. ABDOMINAL PAIN/CRAMPING WAS RESOLVED WITH BM. PATIENT DENIES ANY POST-PRANDIAL ABDOMINAL PAIN WITH NO CLAUDICATIONS. Abdominal Pain Fem Course/Dx - Course Assessment/Plan: A 53 y/o male presents accompanied by family presents to the ED c/o uncomfortable abdominal pain. Additionally c.o diarrhea, dizziness, and weakness. In the ED room, the patient has a pulse of 62 BPM, O2 saturation of 100% and blood pressure of 147/71. As per triage, "Pt c/o abd pain, dizziness, weakness and fast heart when he stands. Pt states he has had lots of diarrhea and nausea. Pt has cardiac hx". According to the patient, he has been experiencing uncomfortable stomach pain coupled with watery diarrhea for some time. He noted that when he stands he gets SOB, dizzy, and feels weak. He wasn' t able to get a good look at his diarrhea, but he did say that it foul smell. The patient's stated that she has had the same meals the patient has had for the past couple days and there was nothing out of the unusual that he was eating. Additionally, they have not eaten take-out and there is no one sick at home. Patient denies any fevers, but feels hot. Patient has had no recent antibiotics or a history with them. Patient has a length cardiac history such as 2 PA's, pacemaker, HBP, high cholesterol, DM, tachycardia, mechanical mitral valve, etc. Patient is on Coumadin and Plavix. Blood work without any significant abnormality, shows a CBC with a wbcs of 10.4, hemoglobin 10.2 hematocrit 31 which is lower than his normal H&H, platelets 263. INR is 3.29, sodium level is 132, BUN is 33 possibly secondary to dehydration. Glucose is 322 and lactic acid is 2.7. Calcium is 8.5. Troponin is 0.01 and the CRP is 1.79. Lipase is normal. Because of the patients complaints of abdominal cramping every time he has a diarrheal episode, a perform an abdominal pelvic CT. Abdominal and pelvic CT IMPRESSION: 1. No CT apparent acute abnormality of the gastrointestinal tract that would account for the patient's presenting symptoms. 2. Homogenous hypoattenuation of the liver parenchyma could be seen in the setting of hepatic steatosis. 3. Mixed attenuation atherosclerosis at the lower abdominal aorta extending of the common iliac arteries causing what might be high-grade stenosis at the right common iliac artery. Please correlate to any signs or symptoms of lower extremity or pelvic claudication. 4. There is apparent high-grade stenosis at the origin of the celiac trunk. Questionably hypertrophied arteries coursing in the cephalad direction just anterior to the infrarenal abdominal aorta may be providing compensatory flow for stenotic celiac trunk. Evaluation on this examination is limited as this is not arteriographic phase imaging. The clinical significance of this is uncertain. I asked the patient again needs to he has any postprandial abdominal pain, any claudication and he denies. The patient is only here because he is having diarrhea. I perform a rectal exam and is no gross blood or hemorrhoids. After hydration and insulin he reports that he he is feeling better. He has not been able to give any stool samples at this time. Rectal exam is positive for occult blood. At this time I discussed my physical exam and findings with Dr. Angel from GI and he will see this patient. I also discussed the case with Dr. Cagle who accepted the patient for admission. I repeated my abdominal exam at 6:40 PM and the patient doesnt have any abdominal pain therefore have no suspicion for ischemic colitis. - Diagnoses Provider Diagnoses: GI bleed, Nausea and vomiting, Diarrhea - Provider Notifications Discussed Care Of Patient With: Suraj Soto Time Discussed With Above Provider: 18:33 Instructed by Provider To: Other - DR. SOTO WILL SEE PATIENT. 1835 - DR. CAGLE ACCEPTS PATIENT FOR ADMISSION. Discharge - Sign-Out/Discharge Documenting (check all that apply): Patient Departure - ADMIT, Sign-Out Patient - TSERING Signing out patient TO: Alex Cagle Receiving patient FROM: Parmjit Brewster - Discharge Plan Condition: Stable Disposition: ADMITTED TO [facility] - Billing Disposition and Condition Condition: STABLE Disposition: Admitted to [facility] - Attestation Statements Document Initiated by Scribe: Yes Documenting Scribe: Cy Smith Provider For Whom Scribe is Documenting (Include Credential): Parmjit Brewster MD Scribe Attestation: ICy, scribed for Parmjit Brewster MD on 09/09/18 at 0903. Scribe Documentation Reviewed: Yes Provider Attestation: The documentation as recorded by the scribeCy accurately reflects the service I personally performed and the decisions made by me, Parmjit Brewster MD Status of Scribe Document: Viewed Attestations Scribe Attestation: IDr. Brewster personally performed the services described in this documentation as scribed in my presence and it is both accurate and complete. User Type: Provider with Scribe Provider Attestation: The documentation recorded by the scribe accurately reflects the service I personally performed and the decisions made by me.
[2018-09-08 18:52] LABS: Urine Appearance Clear; Urine Bilirubin Negative (Negative); Urine Blood Negative (Negative); Urine Color Yellow; Urine Glucose 3+(>=500 mg/dL) (Negative); Urine Ketones Trace (Negative); Urine Nitrite Negative (Negative); Urine Protein Negative (Negative); Urine Specific Gravity 1.046 (1.010-1.030); Urine Urobilinogen Negative (Negative)
[2018-09-08] MEDS ORDERED: Dofetilide CAP* 500 MCG PO ONE (21:03)
[2018-09-08] MEDS ORDERED: Nitroglycerin TAB 0.4 MG* 0.4 MG TAB SL PRN (21:16)
[2018-09-08] MEDS ORDERED: Dextrose 50% Syringe 50 ML* 25 GM/50 ML SYRINGE IV PUSH PRN (21:24)
--- NOTE | 2018-09-08 21:39 | ADMNOTE ---
Subjective Date of Service: 09/08/18 Interval History: HISTORY & PHYSICAL CC: diarrhea HPI: Patient is 53 yo man with CAD, PVD, who developed severe diarrhea suddenly at midnight < 24h prior to admission. Has had innumerable dark watery bowel movements since then, at least 12. Denies abdominal pain. Has had some nausea , no vomiting. Has not had any food intake since dinner last night. No history of similar problems. No blood visible in stool. Patient denies chronic colon issues. Had colonoscopy around age 49. PCP is Cal Streeter Olayinka. Has extensive heart disease history, sees Dr Chavira. Family History: Findings - Father had CAD, of multiple issues age 60. Mother of Alzheimers. Brother is healthy. Social History: Findings - Disabled, , 1 young child. Quit tobacco 12 yrs ago, alcohol rarely, no recreational drugs. Past Medical History: Findings - Type 2 DM, hypothyroid, CHF with EF in 30-35% range, atrial fib/flutter, CAD w/ stents in past; PSH Mitral valve replacement [facility], 2005, h/o AV richar ablation, pacemaker placement Review of Systems - Measurements Intake and Output: Intake and Output Last 24 Hours 09/06/18 09/07/18 09/08/18 09/09/18 06:59 06:59 06:59 06:59 Intake Total 1000 Balance 1000 Weight 104.326 kg Intake: IV Fluids 1000 - Review of Systems General Comments: anorexia present Constitutional Symptoms: Positive: Fatigue Negative: Weight Loss, Fever Dermatology: Positive: Normal HEENT: Positive: Normal Eyes: Positive: Normal Thyroid: Positive: Primary Hypothyroidism Negative: Goiter Pulmonary: Positive: Shortness of Breath, Exercise Intolerance Negative: Cough, Wheezing Cardiology: Positive: Shortness of Breath, Peripheral Vascular Dis Negative: Chest Pain, Palpitations, Swelling of Ankles, Edema, Syncope Gastroenterology: Positive: Nausea, Anorexia, Diarrhea, Change in Bowel Habits Negative: Abdominal Pain, Vomiting, Constipation, Blood in Stools, Haematemesis, Melena Genital - Urinary: Positive: Normal Genitourinary - Male: Positive: Prostatism Musculoskeletal: Positive: Other Endocrinology: Positive: Thyroid Problems, Diabetes Mellitus, Hyperglycemia Negative: Diabetic Foot Ulcers, Polydipsia, Polyuria Hematologic/Lymphatic: Positive: Use of Anticoagulant, Use of Antiplatelet Drugs Neurology: Positive: Normal Psychiatry: Positive: Normal Allergic/Immunologic: Negative: Hx Environmental, Athsma Objective Active Medications: Aspirin (Aspirin Ec Tab*) 81 mg PO DAILY [facility] Carvedilol (Coreg Tab*) 6.25 mg PO BID [facility] Dextrose (D50w Syringe 50 Ml*) 12.5 gm IV PUSH .FOR FS < 60 - SS PRN PRN Reason: FS < 60 Dofetilide (Tikosyn Cap*) 500 mcg PO BID [facility] Insulin Human Lispro (Humalog*) 0 units SUBCUT ACHS [facility]; Protocol Magnesium Oxide (Magox 400 Tab*) 400 mg PO DAILY [facility] Nitroglycerin (Nitroglycerin Tab 0.4 Mg*) 0.4 mg SL Q5M PRN PRN Reason: PAIN - CHEST Non-Formulary Medication (Levothyroxine Tab (Nf) [Synthroid Tab (Nf)]) 175 mg PO DAILY [facility] Rosuvastatin Calcium (Crestor (Nf)) 20 mg PO DAILY [facility] Sacubitril/Valsartan (Entresto 49/51(Nf)) 1 tab PO BID [facility] Spironolactone (Aldactone Tab*) 50 mg PO DAILY [facility] Warfarin Sodium (Coumadin Tab(*)) 6 mg PO DAILY [facility]; Protocol Vital Signs - 8 hr 09/08/18 09/08/18 09/08/18 15:38 15:59 16:01 Temperature 36.1 C Pulse Rate 65 60 71 Respiratory 15 13 15 Rate Blood Pressure 130/66 147/71 (mmHg) O2 Sat by Pulse 100 100 89 Oximetry 09/08/18 09/08/18 09/08/18 16:24 16:28 16:59 Temperature Pulse Rate 60 60 61 Respiratory 17 19 13 Rate Blood Pressure 134/70 128/75 129/64 (mmHg) O2 Sat by Pulse 100 100 99 Oximetry 09/08/18 20:00 Temperature Pulse Rate 61 Respiratory 17 Rate Blood Pressure (mmHg) O2 Sat by Pulse 100 Oximetry Oxygen Devices in Use Now: None Appearance: no distress Eyes: No Scleral Icterus Ears/Nose/Mouth/Throat: Clear Oropharnyx Neck: NL Appearance and Movements; NL JVP Respiratory: Symmetrical Chest Expansion and Respiratory Effort, Clear to Auscultation, Clear to Percussion, - - pacemaker present LT upper chest Cardiovascular: NL Sounds; No Murmurs; No JVD, RRR, No Edema, - - PT pulses absent bilat Abdominal: NL Sounds; No Tenderness; No Distention, No Hepatosplenomegaly Lymphatic: No Cervical Adenopathy Extremities: No Edema Skin: No Rash or Ulcers Neurological: Alert and Oriented x 3 Lines/Tubes/Other Access: Clean, Dry and Intact Peripheral IV Nutrition: Taking PO's Result Diagrams: 09/09/18 03:01 09/08/18 16:26 Additional Lab and Data: Laboratory Tests 09/08/18 09/08/18 09/08/18 16:26 16:26 16:26 INR (Anticoag Therapy) Lactic Acid 2.7 H* Magnesium 2.2 AST 21 ALT 27 Alkaline Phosphatase 43 Troponin I 0.01 C-Reactive Protein 1.79 B-Natriuretic Peptide 67 Total Protein 6.6 Albumin 4.1 Lipase 27 Urine Color Ur Specific [place] Urine Ketones Urine Glucose 09/08/18 09/08/18 16:26 18:36 INR (Anticoag Therapy) 3.29 H Lactic Acid Magnesium AST ALT Alkaline Phosphatase Troponin I C-Reactive Protein B-Natriuretic Peptide Total Protein Albumin Lipase Urine Color Yellow Ur Specific [place] 1.046 H Urine Ketones Trace A Urine Glucose 3+(>=500 mg/dl) A Microbiology and Other Data: Microbiology 09/08/18 18:20 Stool Occult Blood (HERIBERTO) - Final Stool Diagnostic Imaging: Abdo/Pelv CT: fatty liver, RT iliac stenosis, celiac stenosis, no masses, no bowel edema EKG Data: atrial fibrillation, 100% ventricular pacing, QTc 592 ms Assess/Plan/Problems-Billing Assessment: 53 year old presenting with GI bleed, differential includes gastritis, peptic ulcer, diverticular bleeding, ischemic colitis. - Patient Problems (1) GI hemorrhage Current Visit: Yes Status: Acute Priority: High Code(s): K92.2 - GASTROINTESTINAL HEMORRHAGE, UNSPECIFIED SNOMED Code(s): 61982115 Comment: - discussed case with Dr. Calvin, he will see patient in AM and discuss EGD/colonscopy and further investigations - will follow serial H/H to assess for anemia requiring transfusion or more urgent GI intervention - start Protonix IV for potential gastritis/ulcer - Will hold plavix since no recent stents present, risk of dual antiplatelet plus warfarin excessively high in presence of GI bleed (2) Iliac artery stenosis, right Current Visit: Yes Status: Acute Priority: Medium Code(s): I77.1 - STRICTURE OF ARTERY SNOMED Code(s): 528789442 Comment: -unrelated to current presentation -will need outpatient follow-up (3) Celiac artery atherosclerosis Current Visit: Yes Status: Acute Priority: Medium Code(s): I70.8 - ATHEROSCLEROSIS OF OTHER ARTERIES SNOMED Code(s): 90166948 Comment: -celiac access atherosclerosis could cause ischemic colitis -no current abdominal pain, so this is less likely -will need f/u as outpatient (4) Mitral valve replaced Current Visit: Yes Status: Acute Priority: Medium Code(s): Z95.2 - PRESENCE OF PROSTHETIC HEART VALVE SNOMED Code(s): 6757037794385 Comment: - due to mechanical MVR, needs warfarin maintained, INR 2.5-3.5, or switch to full dose lovenox - will discuss with GI tomorrow (5) Type 2 diabetes mellitus Current Visit: Yes Status: Acute Priority: Medium Comment: - stopping farxiga, should not be used with known LE PVD - monitor FS glucose, give humalog as needed (6) Atrial flutter Current Visit: No Status: Acute Code(s): I48.92 - UNSPECIFIED ATRIAL FLUTTER SNOMED Code(s): 5184389 Comment: - well controlled on tikosyn - will monitor on telemetry due to risk of QT prolongation (7) DVT prophylaxis Current Visit: No Status: Acute Code(s): XRO6341 - SNOMED Code(s): 670107769 Comment: on coumadin, INR daily Status and Disposition: inpatient required for GI investigations
[2018-09-09 00:18] LABS: Hematocrit 27 % (42-52); Hemoglobin 8.7 g/dl (14.0-18.0)
[2018-09-09 03:15] LABS: Hematocrit 26 % (42-52); Hemoglobin 8.5 g/dl (14.0-18.0)
[2018-09-09] MEDS: Levothyroxine TAB* 175 MCG TAB PO SCH (06:04)
[2018-09-09] MEDS: Pantoprazole IV* 40 MG IV SCH ×2 (06:54→18:22)
[2018-09-09 07:15] LABS: Hematocrit 26 % (42-52); Hemoglobin 8.6 g/dl (14.0-18.0)
[2018-09-09 07:31] LABS: INR 2.13 (0.77-1.02)
[2018-09-09 07:34] LABS: Anion Gap 9 mmol/L (2-11); BUN/Creatinine Ratio 22.2 (8-20); Blood Urea Nitrogen 20 mg/dL (6-24); CO2 Carbon Dioxide 21 mmol/L (22-32); Calcium 7.6 mg/dL (8.6-10.3); Chloride 104 mmol/L (101-111); EGFR Non-African American 87.9 (>60); Glucose 194 mg/dL (70-100); Sodium 134 mmol/L (135-145)
[2018-09-09 08:24] LABS: Iron 29 ug/dL (50-212); Total Iron Binding Capacity 483 mcg/dL (250-450); Transferrin 345 mg/dL (203-362)
[2018-09-09] MEDS: Insulin LISPRO* 1 UNITS UNIT SUBCUT SCH ×4 (08:38→20:49)
[2018-09-09] MEDS: Carvedilol TAB* 6.25 MG PO SCH ×2 (08:39→20:49)
[2018-09-09] MEDS: CMCS:Rosuvastatin (NF) 20 MG TAB PO SCH (08:39)
[2018-09-09] MEDS: Magnesium Oxide TAB* 400 MG PO SCH (08:39)
[2018-09-09] MEDS: Spironolactone TAB* 25 MG PO SCH (08:39)
[2018-09-09] MEDS: Dofetilide CAP* 500 MCG PO SCH ×2 (08:39→20:49)
[2018-09-09] MEDS: Sacubitril/Valsartan 49/51(NF) TAB PO SCH ×2 (08:40→20:46)
[2018-09-09] MEDS ORDERED: Aspirin EC TAB* 81 MG TAB.EC PO SCH (09:00)
--- NOTE | 2018-09-09 10:15 | PN ---
Subjective Date of Service: 09/09/18 Interval History: Mr. Guzmán reports that he feels generally tired and "out of it" but he denies any other specific complaint including chest pain, SOB, nausea, or abdominal pain. He has not had any further bowel movements since admission. Objective Active Medications: Aspirin (Aspirin Ec Tab*) 81 mg PO DAILY [facility] Carvedilol (Coreg Tab*) 6.25 mg PO BID [facility] Dextrose (D50w Syringe 50 Ml*) 12.5 gm IV PUSH .FOR FS < 60 - SS PRN Dofetilide (Tikosyn Cap*) 500 mcg PO BID [facility] Insulin Human Lispro (Humalog*) 0 units SUBCUT ACHS [facility]; Protocol Levothyroxine Sodium (Synthroid Tab*) 175 mcg PO DAILY@0600 [facility] Magnesium Oxide (Magox 400 Tab*) 400 mg PO DAILY [facility] Nitroglycerin (Nitroglycerin Tab 0.4 Mg*) 0.4 mg SL Q5M PRN Pantoprazole Sodium (Protonix Iv*) 40 mg IV Q12H [facility] Rosuvastatin Calcium (Crestor (Nf)) 20 mg PO DAILY [facility] Sacubitril/Valsartan (Entresto 49/51(Nf)) 1 tab PO BID [facility] Spironolactone (Aldactone Tab*) 50 mg PO DAILY [facility] Warfarin Sodium (Coumadin Tab(*)) 6 mg PO DAILY@1700 [facility]; Protocol Vital Signs: Temp Pulse Resp BP Pulse Ox 98.6 F 103 18 120/77 97 09/09/18 07:48 09/09/18 07:48 09/09/18 07:15 09/09/18 07:48 09/09/18 07:48 Oxygen Devices in Use Now: None Appearance: Male lying in bed in NAD Eyes: No Scleral Icterus Ears/Nose/Mouth/Throat: Mucous Membranes Moist Neck: Trachea Midline Respiratory: Symmetrical Chest Expansion and Respiratory Effort, Clear to Auscultation Cardiovascular: NL Sounds; No Murmurs; No JVD, No Edema Abdominal: NL Sounds; No Tenderness; No Distention Extremities: No Edema Skin: No Rash or Ulcers Neurological: Alert and Oriented x 3, NL Muscle Strength and Tone Nutrition: Taking PO's Result Diagrams: 09/09/18 17:32 09/09/18 06:55 Additional Lab and Data: . Microbiology and Other Data: . Diagnostic Imaging: . EKG Data: . Assess/Plan/Problems-Billing Assessment: Mr. Guzmán is a 53 year old male with a PMH of [place], stents, mechanical mitral valve on coumadin, aspirin and plavix who was admitted on 09/08/18 with diarrhea and new anemia with concern for upper GI bleed. - Patient Problems (1) GI hemorrhage Comment: - Hgb down to 8 with lightheadedness and tachycardiac, plan for one unit PRBC now - Follow H/H closely, no overt bleeding since admission - Appreciate consult from Dr. Calvin, plan for EGD in AM. Pt with hx of colonoscopy approx 1 year ago, only polyp found. - Continue Protonix IV for potential gastritis/ulcer - Hold plavix, aspirin, and coumadin (2) Chronic systolic CHF (congestive heart failure) Comment: - No evidence of exacerbation - Appreciate cardiology recommendations, continue home meds for now (3) Mitral valve replaced Comment: - Has mechanical mitral valve, [employer] [facility] - Appreciate cardiology recommendations, unfortunately will need to hold coumadin until after EGD. Dr. Sandoval recommends to restart coumadin if EGD negative and patient otherwise stable due to high risk for clot. (4) Stenosis of iliac artery Comment: - Patient confirms that he does have pain with ambulation but it is not severe - Recommend close outpatient follow up with vascular surgery - Resume anticoagulation when GI bleed resolved (5) Celiac artery stenosis Comment: - Noted on CT of abdomen - Patient denies abdominal pain, not contributing to GI bleed - Resume anticoagulation when GI bleed resolved (6) Type 2 diabetes mellitus Comment: - Stopping farxiga, should not be used with known LE PVD - Monitor FS glucose, give humalog as needed (7) Atrial flutter Comment: - Well controlled on tikosyn - Dr. Sandoval notes QT prolongation but will review outpatient records before making any adjustments to meds (8) Coronary artery arteriosclerosis Comment: - Asymptomatic, transfusing for Hgb of 8 - Unfortunately, will need to hold plavix and aspirin during acute GI bleed (9) HTN (hypertension) Comment: - SBP 130-140s - Continue home meds for now, appreciate cardiology consultation (10) Hypothyroid Comment: - Continue Levothyroxine (11) DVT prophylaxis Comment: - SCDs (12) Full code status Comment: Status and Disposition: Inpatient. Anticipate discharge to home when medically stable.
[2018-09-09 11:24] LABS: Hematocrit 25 % (42-52)
[2018-09-09] MEDS ORDERED: Warfarin TAB(*) 6 MG PO SCH (17:00)
[2018-09-09 17:57] LABS: Hematocrit 30 % (42-52); Hemoglobin 9.9 g/dl (14.0-18.0)
--- NOTE | 2018-09-09 19:18 | CONS ---
CC: Dr. Chavira; [facility]. CARDIOLOGY CONSULTATION: DATE OF CONSULT: 09/09/18 REASON FOR CONSULTATION: Assistance with medical management of coronary artery disease and anticoagulation with mechanical mitral valve replacement in the setting of a GI bleed. CHIEF COMPLAINT: Bloody diarrhea. HISTORY OF PRESENT ILLNESS: The patient is a very nice 53-year-old gentleman with known atherosclerotic heart disease, peripheral vascular disease, and a mechanical mitral valve. His most recent stenting was February [address] Hill and he has been on a combination of Coumadin for his prosthetic heart valve and aspirin. The patient states he was in his usual state of health until about midnight 12/21, 09/08/18 and he developed severe diarrhea and he has had multiple watery stools. He is unsure if there was blood in the stool and he said prior to that , he had felt fine with no problems. The patient denies missing any medications and he denies any [id number]-myn-prcyvbz medications. No non-steroidals or any other medications. The patient was found to be anemic with a hematocrit of 25 and his Coumadin has been held. The patient denies recurrence of his angina (substernal and left-sided chest pressure radiating to the left arm). He denies orthopnea or PND and he denies any decline in his functional ability prior to this presentation. The patient does have orthostatic lightheadedness and fatigue; trying to stand for a long periods since this started. PAST MEDICAL HISTORY: 1. Coronary artery disease. A. Inferior wall FL in 2005 complicated by cardiogenic shock, treated with thrombolysis (failed) with rescue intervention to the right coronary artery (3 x 18 Cypher drug-eluting stent). B. On 02/13/18, non-STEMI with stenting to a tight OM1 lesion, medical management for tight OM2, small vessel and moderate disease in OM3. On Plavix C. Mitral valve replacement ([employer] mechanical valve) in 2005 for post FL, mitral insufficiency with failed repair, on chronic Coumadin anticoagulation. D. Paroxysmal AFib/flutter status post ablation, on Tikosyn followed by Dr Dunne (Oral). E. Ventricular dysrhythmias with BiV ICD ([employer]). F. Ischemic cardiomyopathy (EF 25-30% May 2018 echo). 2. Hypothyroid disease. 3. Type 2 diabetes. 4. Dyslipidemia. 5. Depression 6. Gout 7. Sleep Apnea MEDICATIONS: Current inpatient medications include: 1. Coreg 6.25 mg b.i.d. 2. Entresto 49/51 one tab p.o. b.i.d. 3. Aldactone 50 mg a day. 4. Crestor 20 mg a day. 5. Tikosyn 500 mcg b.i.d. 6. Humalog insulin. 7. Synthroid 175 mcg a day. 8. Magnesium oxide 400 mg a day. 9. Nitroglycerin p.r.n. chest pain. 10. IV Protonix 40 mg q.12 hours. Recently discontinued medications include: Aspirin and Coumadin and plavix ( this admission). ALLERGIES: Include ATORVASTATIN, RAMIPRIL, METOPROLOL, and ZITHROMAX (all rashes or hives). SOCIAL HISTORY: The patient is on disability, , with a young child. He stopped smoking 12 years ago. Rare alcohol. No recreational drug use. FAMILY HISTORY: Positive for coronary artery disease. His father at age 60. His mother of Alzheimer's. REVIEW OF SYSTEMS: See history of present illness for acute onset of diarrhea, multiple episodes and negative for recurrence of angina, orthopnea, or PND. Positive for orthostatic fatigue. He denies recent anorexia or decline in functional ability. No recent orthopnea, PND. All other 14-point review of systems is negative. PHYSICAL EXAMINATION: On exam, the patient is 5 feet 10 inches, weighs 226 pounds with a BMI of 32.5. Vitals: Currently, blood pressure 116/57, pulse is 85, respiratory rate is 16, T-max 99.7. General Appearance: Quite overweight, older middle-aged gentleman, lying in bed, appears frustrated, but in no acute medical distress; he is lying at 45 degrees. Psychologically, pleasant, cooperative. Neurologically, awake, alert, oriented to person, place, and time. Grossly normal sensory, motor function in the upper and lower extremities on bed exam. Skin: Warm, dry. Color actually pretty good. No cyanosis appreciated in lips, nail beds, or skin. HEENT: Mucous membranes moderately moist. Neck: Without increased JVP, although thick. Good carotid pulses without audible bruits. Breath sounds clear with good effort. No wheezes, rales, or rhonchi. Coronary: S1, S2. Regular, fairly crisp clicks from his mitral prosthesis. No murmurs heard. Abdomen: Very overweight. Active bowel sounds. Soft, nontender with light palpation. Lower extremities are free of edema and warmth. DIAGNOSTIC STUDIES/LABORATORY DATA: A 12-lead ECG shows atrial flutter with ventricular pacing at a rate of 60 beats a minute with one-to-one ventricular capture. Corrected QT interval (paced), 592. Abdominal and pelvic CT scan report shows no acute gastrointestinal tract issues , hypoattenuation of the liver parenchyma consistent with hepatic steatosis, mixed attenuation, atherosclerosis in the lower aorta and common iliac suspicious for high-grade stenosis in the right common iliac, high-grade stenosis at the origin of the celiac trunk. Carotid Doppler from 05/25/18 showed less than 50% occlusion of the left and right internal carotids with antegrade flow at the vertebrals. Cardiac catheterization, 02/13/18, showed a nondominant circumflex with ostial 80% occlusion in the first OM1 branch, 60% to 70% occlusion in the OM2 (small caliber vessel), right coronary artery dominant with 40% occlusion in mid vessels; distal RCA stent widely patent; LAD large, slow flow with several small -to-moderate diagonals; mild systolic compression in mid segments, no significant stenosis. Transesophageal echo from 09/09/15 was limited due to artifact from the mitral valve replacement, mild aortic insufficiency, bileaflet mechanical valve in the mitral position, well seated with normal function, physiologic regurgitation, trace tricuspid insufficiency. Transthoracic echo : EF 25-30%, mild AI, trace MR, mild TR. Laboratories: White count 10.4, 09/08/18; on 09/09/18, hemoglobin 8, hematocrit 25. INR on admission 3.29, today 2.13. Sodium 134, potassium 4.0, chloride 104, bicarb 21, BUN 20, creatinine 0.9, glucose 194. Magnesium 2.0. AST 21, ALT 27. Troponin 0.01. C-reactive protein 1.79. BNP 67. TSH 1.38. Urinalysis, nitrite and esterase negative. From 07/12/18, total cholesterol 117, triglycerides 156, LDL cholesterol 42, and HDL cholesterol 43.5. ASSESSMENT AND PLAN: In summary, Rich Guzmán is a 53-year-old gentleman with acute onset of diarrhea, multiple stools, found to be anemic and with concern for gastrointestinal bleeding. Mr. Guzmán is 6 months status post stenting to an obtuse marginal-1 branch, has a severe ischemic cardiomyopathy from his old inferior wall myocardial infarction and has a mechanical mitral valve prosthesis, on Coumadin aspirin and plavix. For the patient's presentation with diarrhea, anemia felt to be gastrointestinal source; on reviewing the chart, Dr. Calvin has seen the patient and is planning on scoping the patient tomorrow (EGD). For the patient's mechanical valve in the mitral position, he is at higher risk for thrombosis even though it is not a fresh valve. I do agree that holding Coumadin and aspirin at this point is in the patient's best interest, but once GI feels it is safe to resume anticoagulation, I would bridge with heparin, this can be stopped acutely if needed. For the patient's ischemic cardiomyopathy, I concur with continuation of Coreg and Entresto and Aldactone. If medications need to be held because of low blood pressure, I would hold the diuretics first. For the patient's coronary artery disease and peripheral vascular disease (CT scan revealing celiac disease and iliac disease), continuation of Crestor and atherosclerotic risk factor modification including diet and sugar. The patient should stay on Plavix 1 year post stent ideally, 6 months has been shown to be adequate in high risk cases. I with agree staying off plavix for now, but resumption needs to be considered post GI workup. It might be worth asking Endocrinology if he would be a candidate, new diabetic biologics SGLT2 as there is an improved mortality in patients with congestive heart failure. For the patient's paroxysmal atrial fibrillation, we will continue him on Tikosyn. I will need to review his outpatient EKGs and QRS duration and try to as best to correct for his paced/widened QRS and determine if we should lower the dose. Additional recommendations will be made pending his clinical course and the results of his GI workup. I explained to the patient that the mechanical valve in the mitral position is a high risk for thrombosis, but that we have to manage him and not allow him to be in a dangerous situation where he could lose more blood. For the peripheral vascular disease with the celiac occlusion, this raises the possibility that some of his presentation could be related to intestinal angina , but the typical presentation of this is weight loss, but I would consider working with Radiology and Gastroenterology to ensure imaging evaluation is done to ensure the patient would not benefit from any intervention to the celiac artery. ADDENDUM: OUTPATIENT ECG MOST RECENT (JUNE) SHOWED QTC 505, LOWER. WILL REPEAT ECG. [id number]/[facility] #: [id number] MTDLiz
--- NOTE | 2018-09-09 22:02 | CONS ---
CONSULTATION REPORT: DATE OF CONSULT: 09/09/18. INDICATION: Melena. NARRATIVE: Mr. Guzmán is a very pleasant 53-year-old gentleman who has a history of coronary artery disease, peripheral vascular disease who states that a few days ago, he developed very loose stools. They were very dark to black in nature. He states he has had approximately 12 bowel movements over the past day. He really does not have much abdominal pain; however, does describe a slight epigastric twinge. No nausea, no vomiting. He does take an aspirin every day. No other non- steroidal. No fevers or chills. I did perform a colonoscopy on him a few years ago. PAST MEDICAL HISTORY: Significant for type 2 diabetes, hypothyroid, congestive heart failure, atrial fibrillation, coronary artery disease, mitral valve replacement, AV richar ablation, pacemaker. PAST SURGICAL HISTORY: Please see above. MEDICATIONS: Include: 1. Coreg. 2. Tikosyn. 3. Humalog. 4. Synthroid. 5. Crestor. 6. Entresto. 7. Aldactone. 8. Aspirin. 9. Coumadin. FAMILY HISTORY: Coronary artery disease, Alzheimer's. SOCIAL HISTORY: He quit smoking many years ago. Rarely drinks alcohol. REVIEW OF SYSTEMS: Twelve systems reviewed, other than that mentioned in the HPI, were unremarkable. PHYSICAL EXAM: Vital Signs: Temperature is 98.6, blood pressure is 120/77, pulse is 103, respiratory rate is 18, O2 sat is 97%. General: Well-appearing male, in no apparent distress. Alert, oriented, pleasant, fluent. HEENT: Mucous membranes are moist without lesions, ulcers, or exudate. Neck: Supple. Trachea is midline. Head is normocephalic, atraumatic. Heart: Regular rate and rhythm. No rubs or gallops. Tachycardic. He does have a holosystolic murmur. Lungs: Clear to auscultation. Abdomen: Positive bowel sounds. Soft , nontender, nondistended. No hepatosplenomegaly, masses, rebound, or guarding. Skin is warm and dry. No rashes or ulcers. LABORATORY DATA: Labs of note; hemoglobin went from 10.2 down to 8.7, 8.5, 8.6. INR is 3.29, down to 2.13. BUN is 20, which is down from 33. ASSESSMENT AND PLAN: This is a pleasant 53-year-old gentleman with melena, increased BUN, decreased hemoglobin who is on an aspirin every day. At this point, I do wonder if he could have peptic ulcer disease. I would like to perform an upper endoscopy. He is already on Protonix. We need to hold his aspirin and his Coumadin. I will make arrangements for his EGD tomorrow. [id number]/[facility] #: [id number] MCKAY
[2018-09-09 23:48] LABS: Hematocrit 25 % (42-52); Hemoglobin 8.5 g/dl (14.0-18.0)
[2018-09-10 03:07] LABS: Hematocrit 27 % (42-52)
[2018-09-10] MEDS: Levothyroxine TAB* 175 MCG TAB PO SCH (05:30)
[2018-09-10] MEDS: Pantoprazole IV* 40 MG IV SCH (06:27)
[2018-09-10 07:36] LABS: INR 1.41 (0.77-1.02)
[2018-09-10] MEDS: Carvedilol TAB* 6.25 MG PO SCH ×3 (08:37→20:22)
[2018-09-10] MEDS: Dofetilide CAP* 250 MCG PO SCH ×3 (08:37→20:47)
[2018-09-10] MEDS: Magnesium Oxide TAB* 400 MG PO SCH ×2 (08:37→08:56)
[2018-09-10] MEDS: CMCS:Rosuvastatin (NF) 20 MG TAB PO SCH ×2 (08:38→09:01)
[2018-09-10] MEDS: Spironolactone TAB* 25 MG PO SCH ×2 (08:38→08:56)
[2018-09-10] MEDS: Sacubitril/Valsartan 49/51(NF) TAB PO SCH ×3 (08:38→20:21)
[2018-09-10] MEDS: Insulin LISPRO* 1 UNITS UNIT SUBCUT SCH ×4 (08:56→21:02)
[2018-09-10 09:34] LABS: Hematocrit 27 % (42-52); Hemoglobin 8.9 g/dl (14.0-18.0)
[2018-09-10] MEDS ORDERED: Midazolam* 1 MG/ML 10 ML VIAL (10 MG) ONE (11:32)
[2018-09-10] MEDS ORDERED: fentaNYL* 50 MCG/ML 2 ML VIAL (100 MCG VIAL) ONE (11:32)
[2018-09-10] MEDS ORDERED: Heparin VIAL(*) 5000 UNITS/ML VIAL (FIVE THOUSAND) IV SCH (14:00)
[2018-09-10 14:50] LABS: Hematocrit 26 % (42-52); Hemoglobin 8.5 g/dl (14.0-18.0)
--- NOTE | 2018-09-10 16:06 | PRO ---
CC: ASHLEY Ruth * DATE OF PROCEDURE: 09/10/2018 - ROOM #420 PROCEDURE PERFORMED: EGD. INDICATION: Melena, anemia, iron deficiency. REFERRING PHYSICIAN: ASHLEY Ruth. MEDICATIONS GIVEN: 50 mcg IV Fentanyl and 6 mg IV Versed. PROCEDURE: After the EGD procedure, including the risks, benefits, and alternatives, not limited to perforation, surgery and/or were explained to Mr. Guzmán, written consent was then obtained. IV medication was given and a bite- block was placed between the teeth. An Olympus gastroscope was then inserted into the patient's mouth, advanced down the esophagus, into the stomach , and into the distal duodenum. In the esophagus at the GE junction, the Z- line was intact. No erosive esophagitis, stricture, or ring was seen. The scope was advanced through a widely patent GE junction and into the body of the stomach. Retroflex view was unremarkable. Forward view did reveal numerous gastric erosions. No stigmata of recent hemorrhage was seen. A biopsy for H. pylori was obtained. The scope was advanced through a widely patent pylorus, into the duodenal bulb, and into the distal duodenum, both of which were unremarkable. The scope was withdrawn from the patient. He tolerated the procedure well and was returned to his hospital room in stable condition. IMPRESSION: 1. Complete upper endoscopy into the distal duodenum with biopsies. 2. Gastric erosions, the most likely cause for his melena and anemia. 3. Biopsy for H. pylori. 4. I would hold his aspirin for two to three more days to allow healing. He will need to be transitioned to an oral PPI. We can likely restart his anticoagulation today given the fact that he is high risk. I will communicate this his primary team. [id number]/[facility] #: [id number] MCKAY
--- NOTE | 2018-09-10 16:15 | PN ---
Subjective Date of Service: 09/10/18 Interval History: Mr. Guzmán reports that he still feels a bit rung out. He also has some mild generalized abdominal tenderness. He denies any stool. He denies chest pain, SOB, nausea, or abdominal pain. Objective Active Medications: Carvedilol (Coreg Tab*) 6.25 mg PO BID [facility] Clopidogrel Bisulfate (Plavix Tab*) 75 mg PO DAILY [facility] Dextrose (D50w Syringe 50 Ml*) 12.5 gm IV PUSH .FOR FS < 60 - SS PRN Dofetilide (Tikosyn Cap*) 250 mcg PO BID [facility] Heparin Sodium (Porcine) (Heparin Vial(*)) 0 units IV .PER PROTOCOL [facility] Heparin Sodium/Dextrose (Heparin Drip 25,000 Units(*)) 25,000 units in 500 mls @ 0 mls/hr IV PER RATE [facility]; Protocol Insulin Human Lispro (Humalog*) 0 units SUBCUT ACHS [facility]; Protocol Levothyroxine Sodium (Synthroid Tab*) 175 mcg PO DAILY@0600 [facility] Magnesium Oxide (Magox 400 Tab*) 400 mg PO DAILY [facility] Nitroglycerin (Nitroglycerin Tab 0.4 Mg*) 0.4 mg SL Q5M PRN Pantoprazole Sodium (Protonix Tab *) 40 mg PO BID [facility] Rosuvastatin Calcium (Crestor (Nf)) 20 mg PO DAILY [facility] Sacubitril/Valsartan (Entresto 49/51(Nf)) 1 tab PO BID [facility] Spironolactone (Aldactone Tab*) 50 mg PO DAILY [facility] Warfarin Sodium (Coumadin Tab(*)) 6 mg PO DAILY@1700 [facility]; Protocol Vital Signs: Temp Pulse Resp BP Pulse Ox 97.4 F 77 18 107/62 99 09/10/18 14:04 09/10/18 14:04 09/10/18 14:04 09/10/18 14:04 09/10/18 14:04 Oxygen Devices in Use Now: None Appearance: Male lying in bed in NAD Eyes: No Scleral Icterus Ears/Nose/Mouth/Throat: Mucous Membranes Moist Neck: Trachea Midline Respiratory: Symmetrical Chest Expansion and Respiratory Effort, Clear to Auscultation Cardiovascular: NL Sounds; No Murmurs; No JVD, No Edema Abdominal: NL Sounds; No Tenderness; No Distention Extremities: No Edema Skin: No Rash or Ulcers Neurological: Alert and Oriented x 3, NL Muscle Strength and Tone Nutrition: Taking PO's Result Diagrams: 09/10/18 14:38 09/09/18 06:55 Additional Lab and Data: . Microbiology and Other Data: . Diagnostic Imaging: . EKG Data: . Assess/Plan/Problems-Billing Assessment: Mr. Guzmán is a 53 year old male with a PMH of [place], stents, mechanical mitral valve on coumadin, aspirin and plavix who was admitted on 09/08/18 with diarrhea and new anemia with concern for upper GI bleed. - Patient Problems (1) GI hemorrhage Comment: - Hgb holding at 8.5 after one unit PRBC - No overt bleeding since admission - Appreciate GI consult, EGD found multiple small gastric erosions, likely due to aspirin. Dr. Calvin recommends to start PPI BID, hold aspirin for three days and then resume, resume plavix, resume coumadin, and start heparin bridge. (2) Chronic systolic CHF (congestive heart failure) Comment: - No evidence of exacerbation - Appreciate cardiology recommendations, continue home meds for now (3) Mitral valve replaced Comment: - Has mechanical mitral valve, [facility] - Appreciate cardiology recommendations, resume coumadin with heparin bridge, goal INR 2.5-3.5 (4) Stenosis of iliac artery Comment: - Patient confirms that he does have pain with ambulation but it is not severe - Recommend close outpatient follow up with vascular surgery - Anticoagulation resumed (5) Celiac artery stenosis Comment: - Noted on CT of abdomen - Patient denies abdominal pain, not contributing to GI bleed - Anticoagulation resumed (6) Type 2 diabetes mellitus Comment: - BGs ~200 - Stopping farxiga, should not be used with known LE PVD - Monitor FS glucose, give humalog as needed, will add lantus 5 units now (7) Atrial flutter Comment: - Well controlled on tikosyn - Dr. Sandoval notes QT prolongation, Dr. Cota recommended to decrease to 250mg po BID - Anticoagulation resumed (8) Coronary artery arteriosclerosis Comment: - Asymptomatic - Resume plavix, plan to resume aspirin in three days (9) HTN (hypertension) Comment: - SBP 130-140s - Continue home meds, appreciate cardiology consultation (10) Hypothyroid Comment: - Continue Levothyroxine (11) DVT prophylaxis Comment: - SCDs (12) Full code status Comment: Status and Disposition: Inpatient. Anticipate discharge to home when medically stable.
[2018-09-10] MEDS: Heparin DRIP 25,000 UNITS(*) 25,000 UNITS/500 ML BAG IV SCH (16:56)
[2018-09-10] MEDS: Warfarin TAB(*) 6 MG PO SCH (17:02)
[2018-09-10] MEDS: Pantoprazole TAB * 40 MG TAB PO SCH (20:22)
[2018-09-10] MEDS: Insulin GLARGINE(*) 1 UNITS UNIT SUBCUT SCH (21:03)
[2018-09-10] MEDS ORDERED: Acetaminophen TAB* 325 MG PO PRN (22:00)
[2018-09-11] MEDS: Levothyroxine TAB* 175 MCG TAB PO SCH (05:20)
[2018-09-11 07:09] LABS: Hematocrit 27 % (42-52); Hemoglobin 8.8 g/dl (14.0-18.0)
[2018-09-11 07:15] LABS: INR 1.37 (0.77-1.02)
[2018-09-11] MEDS: Insulin LISPRO* 1 UNITS UNIT SUBCUT SCH ×4 (09:04→20:54)
[2018-09-11] MEDS: Pantoprazole TAB * 40 MG TAB PO SCH ×2 (09:05→20:53)
[2018-09-11] MEDS: Magnesium Oxide TAB* 400 MG PO SCH (09:05)
[2018-09-11] MEDS: Clopidogrel TAB* 75 MG PO SCH (09:05)
[2018-09-11] MEDS: Carvedilol TAB* 6.25 MG PO SCH ×2 (09:05→20:53)
[2018-09-11] MEDS: Spironolactone TAB* 25 MG PO SCH (09:06)
[2018-09-11] MEDS: CMCS:Rosuvastatin (NF) 20 MG TAB PO SCH (09:06)
[2018-09-11] MEDS: Dofetilide CAP* 250 MCG PO SCH ×2 (09:06→20:54)
[2018-09-11] MEDS: Sacubitril/Valsartan 49/51(NF) TAB PO SCH ×2 (09:07→20:55)
--- NOTE | 2018-09-11 13:06 | PN ---
Subjective Date of Service: 09/11/18 Interval History: Patient seen and examined. States abdomen is still a little tender, but improved. Denies chest pain, no SOB, no palpitations, no fever or chills. Family History: Findings - Father had CAD, of multiple issues age 60. Mother of Alzheimers. Brother is healthy. Social History: Findings - Disabled, , 1 young child. Quit tobacco 12 yrs ago, alcohol rarely, no recreational drugs. Past Medical History: Findings - Type 2 DM, hypothyroid, CHF with EF in 30-35% range, atrial fib/flutter, CAD w/ stents in past; [facility] Mitral valve replacement [facility], 2005, h/o AV richar ablation, pacemaker placement Objective Active Medications: Acetaminophen (Tylenol Tab*) 650 mg PO Q6H PRN PRN Reason: HEADACHE/PAIN Last Admin: 09/10/18 22:20 Dose: 650 mg Carvedilol (Coreg Tab*) 6.25 mg PO BID [facility] Last Admin: 09/11/18 09:05 Dose: 6.25 mg Clopidogrel Bisulfate (Plavix Tab*) 75 mg PO DAILY [facility] Last Admin: 09/11/18 09:05 Dose: 75 mg Dextrose (D50w Syringe 50 Ml*) 12.5 gm IV PUSH .FOR FS < 60 - SS PRN PRN Reason: FS < 60 Docusate Sodium (Colace Cap*) 100 mg PO BID [facility] Dofetilide (Tikosyn Cap*) 250 mcg PO BID [facility] Last Admin: 09/11/18 09:06 Dose: 250 mcg Heparin Sodium (Porcine) (Heparin Vial(*)) 0 units IV .PER PROTOCOL [facility] Last Admin: 09/10/18 16:57 Dose: 6,400 units Heparin Sodium/Dextrose (Heparin Drip 25,000 Units(*)) 25,000 units in 500 mls @ 0 mls/hr IV PER RATE [facility]; Protocol Last Admin: 09/10/18 16:56 Dose: 31 mls/hr Insulin Glargine (Lantus(*)) 5 units SUBCUT 2100 [facility] Last Admin: 09/10/18 21:03 Dose: 5 unit Insulin Human Lispro (Humalog*) 0 units SUBCUT ACHS [facility]; Protocol Last Admin: 09/11/18 09:04 Dose: 6 units Levothyroxine Sodium (Synthroid Tab*) 175 mcg PO DAILY@0600 [facility] Last Admin: 09/11/18 05:20 Dose: 175 mcg Magnesium Oxide (Magox 400 Tab*) 400 mg PO DAILY [facility] Last Admin: 09/11/18 09:05 Dose: 400 mg Nitroglycerin (Nitroglycerin Tab 0.4 Mg*) 0.4 mg SL Q5M PRN PRN Reason: PAIN - CHEST Pantoprazole Sodium (Protonix Tab *) 40 mg PO BID [facility] Last Admin: 09/11/18 09:05 Dose: 40 mg Rosuvastatin Calcium (Crestor (Nf)) 20 mg PO DAILY [facility] Last Admin: 09/11/18 09:06 Dose: 20 mg Sacubitril/Valsartan (Entresto 49/51(Nf)) 1 tab PO BID [facility] Last Admin: 09/11/18 09:07 Dose: Not Given Spironolactone (Aldactone Tab*) 50 mg PO DAILY [facility] Last Admin: 09/11/18 09:06 Dose: 50 mg Warfarin Sodium (Coumadin Tab(*)) 6 mg PO DAILY@1700 [facility]; Protocol Last Admin: 09/10/18 17:02 Dose: 6 mg Vital Signs - 8 hr 09/11/18 09/11/18 09/11/18 07:32 08:00 11:11 Temperature 98.6 F 97.3 F Pulse Rate 72 78 Respiratory 18 17 16 Rate Blood Pressure 121/64 135/72 (mmHg) O2 Sat by Pulse 99 100 Oximetry Oxygen Devices in Use Now: None Appearance: alert, NAD Eyes: No Scleral Icterus, PERRLA Ears/Nose/Mouth/Throat: NL Teeth, Lips, Gums, Mucous Membranes Moist Neck: NL Appearance and Movements; NL JVP, Trachea Midline Respiratory: Symmetrical Chest Expansion and Respiratory Effort, Clear to Auscultation Cardiovascular: NL Sounds; No Murmurs; No JVD, RRR, No Edema Abdominal: - - very mild tenderness to palpation, hypoactive BS Extremities: No Edema, No Clubbing, Cyanosis Skin: No Rash or Ulcers, No Nodules or Sclerosis Neurological: Alert and Oriented x 3, NL Sensation Nutrition: Taking PO's Result Diagrams: 09/11/18 06:31 09/09/18 06:55 Additional Lab and Data: . Microbiology and Other Data: . Diagnostic Imaging: . EKG Data: . Assess/Plan/Problems-Billing Assessment: Mr. Guzmán is a 53 year old male with a PMH of [place], stents, mechanical mitral valve on coumadin, aspirin and plavix who was admitted on 09/08/18 with diarrhea and new anemia with concern for upper GI bleed. - Patient Problems (1) GI hemorrhage Code(s): K92.2 - GASTROINTESTINAL HEMORRHAGE, UNSPECIFIED SNOMED Code(s): 31555630 Comment: - Hgb holding at 8.5 after one unit PRBC - No overt bleeding since admission - Appreciate GI consult, EGD found multiple small gastric erosions, likely due to aspirin. Dr. Calvin recommends to start PPI BID, hold aspirin for three days and then resume, resume plavix, resume coumadin, and continue heparin- coumadin bridge. - Add bowel regimen (2) Chronic systolic CHF (congestive heart failure) Code(s): I50.22 - CHRONIC SYSTOLIC (CONGESTIVE) HEART FAILURE SNOMED Code(s): 285559461 Comment: - No evidence of exacerbation - Appreciate cardiology recommendations, continue home meds for now (3) Mitral valve replaced Code(s): Z95.2 - PRESENCE OF PROSTHETIC HEART VALVE SNOMED Code(s): 5681972774636 Comment: - Has mechanical mitral valve, [facility] - Appreciate cardiology recommendations, resume coumadin with heparin bridge, goal INR 2.5-3.5, remains subtherapeutic today with high PTT - Hold heparin per protocol and increase coumadin tonight (4) Type 2 diabetes mellitus Comment: - BGs ~200 - Farxiga discontinued, should not be used with known LE PVD - Monitor FS glucose, give humalog as needed, and continue lastus (5) Atrial flutter Code(s): I48.92 - UNSPECIFIED ATRIAL FLUTTER SNOMED Code(s): 3712954 Comment: - Well controlled on tikosyn, remains in controlled rate - Dr. Sandoval notes QT prolongation, Dr. Cota recommended to decrease to 250mg po BID - Anticoagulation resumed (6) HTN (hypertension) Code(s): I10 - ESSENTIAL (PRIMARY) HYPERTENSION SNOMED Code(s): 57011676 Comment: - Stable on home meds (7) DVT prophylaxis Code(s): TWI9745 - SNOMED Code(s): 642234347 Comment: - Heparin/coumadin bridge (8) Full code status Code(s): Z78.9 - OTHER SPECIFIED HEALTH STATUS SNOMED Code(s): 664928037 Comment: Status and Disposition: Inpatient. Anticipate discharge to home when medically stable.
[2018-09-11] MEDS: Docusate CAP* 100 MG PO SCH ×2 (13:11→20:53)
[2018-09-11] MEDS: Heparin DRIP 25,000 UNITS(*) 25,000 UNITS/500 ML BAG IV SCH (13:23)
[2018-09-11] MEDS: Warfarin TAB(*) 6 MG PO SCH (17:11)
[2018-09-11] MEDS ORDERED: Warfarin TAB(*) 4 MG PO ONE (19:00)
[2018-09-11] MEDS: Insulin GLARGINE(*) 1 UNITS UNIT SUBCUT SCH (20:53)
[2018-09-12] MEDS: Levothyroxine TAB* 175 MCG TAB PO SCH (05:16)
[2018-09-12 06:37] LABS: Hematocrit 29 % (42-52); Hemoglobin 9.3 g/dl (14.0-18.0)
[2018-09-12 06:43] LABS: INR 1.58 (0.77-1.02)
[2018-09-12 06:54] LABS: EGFR Non-African American 96.5 (>60)
[2018-09-12] MEDS: Insulin LISPRO* 1 UNITS UNIT SUBCUT SCH ×4 (08:33→21:26)
[2018-09-12] MEDS: Dofetilide CAP* 250 MCG PO SCH ×2 (08:33→20:46)
[2018-09-12] MEDS: Carvedilol TAB* 6.25 MG PO SCH ×2 (08:34→20:46)
[2018-09-12] MEDS: Spironolactone TAB* 25 MG PO SCH (08:34)
[2018-09-12] MEDS: Magnesium Oxide TAB* 400 MG PO SCH (08:34)
[2018-09-12] MEDS: Docusate CAP* 100 MG PO SCH ×2 (08:34→20:46)
[2018-09-12] MEDS: Clopidogrel TAB* 75 MG PO SCH (08:34)
[2018-09-12] MEDS: Pantoprazole TAB * 40 MG TAB PO SCH ×2 (08:35→20:46)
[2018-09-12] MEDS: CMCS:Rosuvastatin (NF) 20 MG TAB PO SCH (08:40)
[2018-09-12] MEDS: Sacubitril/Valsartan 49/51(NF) TAB PO SCH ×2 (08:56→20:28)
[2018-09-12] MEDS: Heparin DRIP 25,000 UNITS(*) 25,000 UNITS/500 ML BAG IV SCH (12:07)
--- NOTE | 2018-09-12 13:52 | PN ---
Subjective Date of Service: 09/12/18 Interval History: Patient seen and examined. No acute overnight events. BG remains elevated, no SOB, no abd pain, no chest pain. No fevers or chills. Family History: Findings - Father had CAD, of multiple issues age 60. Mother of Alzheimers. Brother is healthy. Social History: Findings - Disabled, , 1 young child. Quit tobacco 12 yrs ago, alcohol rarely, no recreational drugs. Past Medical History: Findings - Type 2 DM, hypothyroid, CHF with EF in 30-35% range, atrial fib/flutter, CAD w/ stents in past; [facility] Mitral valve replacement [facility], 2005, h/o AV richar ablation, pacemaker placement Objective Active Medications: Acetaminophen (Tylenol Tab*) 650 mg PO Q6H PRN PRN Reason: HEADACHE/PAIN Last Admin: 09/10/18 22:20 Dose: 650 mg Carvedilol (Coreg Tab*) 6.25 mg PO BID [facility] Last Admin: 09/12/18 08:34 Dose: 6.25 mg Clopidogrel Bisulfate (Plavix Tab*) 75 mg PO DAILY [facility] Last Admin: 09/12/18 08:34 Dose: 75 mg Dextrose (D50w Syringe 50 Ml*) 12.5 gm IV PUSH .FOR FS < 60 - SS PRN PRN Reason: FS < 60 Docusate Sodium (Colace Cap*) 100 mg PO BID [facility] Last Admin: 09/12/18 08:34 Dose: 100 mg Dofetilide (Tikosyn Cap*) 250 mcg PO BID [facility] Last Admin: 09/12/18 08:33 Dose: 250 mcg Heparin Sodium (Porcine) (Heparin Vial(*)) 0 units IV .PER PROTOCOL [facility] Last Admin: 09/10/18 16:57 Dose: 6,400 units Heparin Sodium/Dextrose (Heparin Drip 25,000 Units(*)) 25,000 units in 500 mls @ 0 mls/hr IV PER RATE [facility]; Protocol Last Admin: 09/12/18 12:07 Dose: 23 mls/hr Insulin Glargine (Lantus(*)) 5 units SUBCUT 2100 [facility] Last Admin: 09/11/18 20:53 Dose: 5 unit Insulin Human Lispro (Humalog*) 0 units SUBCUT ACHS [facility]; Protocol Last Admin: 09/12/18 13:06 Dose: 8 units Levothyroxine Sodium (Synthroid Tab*) 175 mcg PO DAILY@0600 [facility] Last Admin: 09/12/18 05:16 Dose: 175 mcg Magnesium Oxide (Magox 400 Tab*) 400 mg PO DAILY [facility] Last Admin: 09/12/18 08:34 Dose: 400 mg Nitroglycerin (Nitroglycerin Tab 0.4 Mg*) 0.4 mg SL Q5M PRN PRN Reason: PAIN - CHEST Pantoprazole Sodium (Protonix Tab *) 40 mg PO BID [facility] Last Admin: 09/12/18 08:35 Dose: 40 mg Rosuvastatin Calcium (Crestor (Nf)) 20 mg PO DAILY [facility] Last Admin: 09/12/18 08:40 Dose: 20 mg Sacubitril/Valsartan (Entresto 49/51(Nf)) 1 tab PO BID [facility] Last Admin: 09/12/18 08:56 Dose: Not Given Spironolactone (Aldactone Tab*) 50 mg PO DAILY [facility] Last Admin: 09/12/18 08:34 Dose: 50 mg Warfarin Sodium (Coumadin Tab(*)) 6 mg PO DAILY@1700 [facility]; Protocol Last Admin: 09/11/18 17:11 Dose: 6 mg Vital Signs - 8 hr 09/12/18 09/12/18 09/12/18 07:26 08:00 11:22 Temperature 97.9 F 97.5 F Pulse Rate 79 66 Respiratory 18 17 18 Rate Blood Pressure 127/75 117/63 (mmHg) O2 Sat by Pulse 100 100 Oximetry Oxygen Devices in Use Now: None Appearance: alert, NAD Eyes: No Scleral Icterus, PERRLA Ears/Nose/Mouth/Throat: NL Teeth, Lips, Gums, Mucous Membranes Moist Neck: NL Appearance and Movements; NL JVP, Trachea Midline Respiratory: Symmetrical Chest Expansion and Respiratory Effort, Clear to Auscultation Cardiovascular: NL Sounds; No Murmurs; No JVD, RRR, No Edema Abdominal: NL Sounds; No Tenderness; No Distention Extremities: No Edema, No Clubbing, Cyanosis Skin: No Rash or Ulcers, No Nodules or Sclerosis Neurological: Alert and Oriented x 3 Nutrition: Taking PO's Result Diagrams: 09/12/18 06:14 09/12/18 06:14 Additional Lab and Data: . Microbiology and Other Data: . Diagnostic Imaging: . EKG Data: . Assess/Plan/Problems-Billing Assessment: Mr. Guzmán is a 53 year old male with a PMH of [place], stents, mechanical mitral valve on coumadin, aspirin and plavix who was admitted on 09/08/18 with diarrhea and new anemia with concern for upper GI bleed. - Patient Problems (1) GI hemorrhage Code(s): K92.2 - GASTROINTESTINAL HEMORRHAGE, UNSPECIFIED SNOMED Code(s): 23955920 Comment: - HgB stable and continues to normalize - Continue PPI BID for multiple small ulcerations found on EGD - Hold aspirin for one more day then resume - Resume plavix and continue heparin-coumadin bridge, INR 1.58 today - Bowel regimen (2) Chronic systolic CHF (congestive heart failure) Code(s): I50.22 - CHRONIC SYSTOLIC (CONGESTIVE) HEART FAILURE SNOMED Code(s): 743274557 Comment: - No evidence of exacerbation - Continue home meds, stable (3) Mitral valve replaced Code(s): Z95.2 - PRESENCE OF PROSTHETIC HEART VALVE SNOMED Code(s): 2154840550863 Comment: - Hx of [facility] valve - Goal INR 2.5-3.5, remains subtherapeutic - Give 10mg coumadin again tonight (4) Type 2 diabetes mellitus Comment: - BGs remain elevated - Farxiga discontinued, should not be used with known LE PVD - Monitor FS glucose - Increase lantus this evening, and continue SS (5) Atrial flutter Code(s): I48.92 - UNSPECIFIED ATRIAL FLUTTER SNOMED Code(s): 4733001 Comment: - Well controlled on tikosyn, remains in controlled rate - Dr. Sandoval notes QT prolongation, Dr. Cota recommended to decrease to 250mg po BID - Anticoagulation continued (6) HTN (hypertension) Code(s): I10 - ESSENTIAL (PRIMARY) HYPERTENSION SNOMED Code(s): 20386649 Comment: - Stable on home meds (7) DVT prophylaxis Code(s): BFH8208 - SNOMED Code(s): 828390261 Comment: - Heparin/coumadin bridge (8) Full code status Code(s): Z78.9 - OTHER SPECIFIED HEALTH STATUS SNOMED Code(s): 405001734 Comment: Status and Disposition: Inpatient. Anticipate discharge to home when medically stable.
[2018-09-12] MEDS ORDERED: Warfarin TAB(*) 10 MG PO SCH (17:00)
[2018-09-12] MEDS ORDERED: Insulin GLARGINE(*) 1 UNITS UNIT SUBCUT SCH (21:00)
[2018-09-13] MEDS: Levothyroxine TAB* 175 MCG TAB PO SCH (05:39)
[2018-09-13 07:04] LABS: Hematocrit 29 % (42-52); Hemoglobin 9.3 g/dl (14.0-18.0)
[2018-09-13] MEDS: Dofetilide CAP* 250 MCG PO SCH (08:12)
[2018-09-13] MEDS: Carvedilol TAB* 6.25 MG PO SCH (08:13)
[2018-09-13] MEDS: Magnesium Oxide TAB* 400 MG PO SCH (08:13)
[2018-09-13] MEDS: Pantoprazole TAB * 40 MG TAB PO SCH (08:13)
[2018-09-13] MEDS: Docusate CAP* 100 MG PO SCH (08:13)
[2018-09-13] MEDS: Spironolactone TAB* 25 MG PO SCH (08:13)
[2018-09-13] MEDS: Clopidogrel TAB* 75 MG PO SCH (08:13)
[2018-09-13] MEDS: CMCS:Rosuvastatin (NF) 20 MG TAB PO SCH (08:13)
[2018-09-13] MEDS: Sacubitril/Valsartan 49/51(NF) TAB PO SCH (08:13)
[2018-09-13] MEDS: Insulin LISPRO* 1 UNITS UNIT SUBCUT SCH ×2 (09:23→12:25)
[2018-09-13 09:57] LABS: Activated Partial Thrombo Time 73.5 seconds (26.0-36.3); INR 2.31 (0.77-1.02)
[2018-09-13 11:27] VITALS: BP 116/66
--- NOTE | 2018-09-18 23:46 | DS ---
CC: Dr. Storey; Dr. Maurice; Dr. Calvin* DISCHARGE SUMMARY: DATE OF ADMISSION: 09/08/18 DATE OF DISCHARGE: 09/13/18 PRIMARY CARE PROVIDER: Dr. Storey. ATTENDING FOR THIS ADMISSION: Dr. Maurice. MY ATTENDING FOR TODAY: Dr. Gonzales.* (DICTATED BY MAY ACOSTA NP ) HOSPITAL COURSE: This is a 53-year-old male patient with a complex medical history. Please see admitting notes dated 09/18/[address] Dion Peck. In short, this patient came in with diarrhea and then some dark stools with some dizziness. He denied any nausea or vomiting, but he did feel symptomatic after having his diarrhea. He came to the emergency department for evaluation. He was found to be anemic with a hemoglobin of 8.5, hematocrit of 26. Because he is on Plavix and aspirin, was subsequently admitted for rule out GI bleed. The patient was seen by Dr. Calvin of GI. He had an EGD done, which showed several erosions. Also of note, the patient does take Coumadin for mechanical valve, which is also being held at that time. The patient was seen in consultation also by Dr. Soniya Sandoval given his extensive cardiac history. Dr. Sandoval's note on the made some recommendations for continuing his Coreg , Entresto, and Aldactone. Also of note, the patient had PCI approximately 6 months prior and had some severe ischemic cardiomyopathy secondary to an old inferior wall DC. From a cardiac standpoint, the patient remained optimized. From a GI standpoint, he was heparinized as opposed to restarting his Coumadin while his serial H and Hs were monitored. We had some difficulty then were clear to restart his Coumadin, getting therapeutic INRs. He was bridged from heparin to Coumadin over several days. On the day of discharge, because the patient checks his INRs at home, it was determined that we could discharge him with an INR of 2.31, as the patient normally is very used to adjusting his Coumadin at home and following up with his primary care provider to adjust his dosing. The patient does have an i-STAT/INR lab check at his home, and he was instructed to follow his INR in the morning and discuss with Dr. Storey any adjustments in his Coumadin dose that he would need. The patient was stabilized. He had no chest pain. No shortness of breath, no abdominal pain, no nausea, no vomiting, no active bleeding. No fevers or chills and no further constitutional complaints on the day of discharge. REVIEW OF SYSTEMS: A 10-point review of systems is negative except as noted above. PHYSICAL EXAMINATION ON THE DAY OF DISCHARGE: Vital Signs: Blood pressure 116/ 66, heart rate 67, respiratory rate 14, O2 saturation 95% on room air, temperature is 97.8. HEENT: The patient is atraumatic and normocephalic. PERRLA with nonicteric sclerae. Oral mucosa is moist. Tongue is midline. No JVD noted. No carotid bruit auscultated. Cardiovascular: S1, S2 present. Rate and rhythm are regular. No murmurs, gallops, or rubs noted. Lungs: Clear bilaterally to auscultation with no wheezing, rhonchi, or rales. Abdomen: Soft , nontender, nondistended. Positive bowel sounds in all 4 quadrants. : Deferred. Musculoskeletal: There is no clubbing, no cyanosis, no edema. He has +2 distal pulses palpable. Neurologic: Grossly intact. No focal deficits. Psychiatric: He is cooperative and appropriate. LABORATORY DATA: Hemoglobin 9.3, hematocrit 29. Sodium 134, potassium 4.0, chloride 104, CO2 21, BUN 20, creatinine 0.90, GFR 87.9, glucose ranging from 193 to 218, calcium 7.6. Iron 29, TIBC 483, iron saturation 6. Liver function within normal limits. BNP was negative at 67 and TSH was 1.38. DISCHARGE DIAGNOSES: 1. Upper gastrointestinal bleeding, now stable. 2. History of iliac artery stenosis, at baseline. 3. Mitral valve replacement back on home Coumadin dose. 4. Hyperglycemia secondary to insulin-dependent diabetes mellitus. 5. History of Aflutter, controlled on Tikosyn. 6. Ischemic cardiomyopathy. Continue medical management and at baseline. DISCHARGE MEDICATIONS: Include: 1. Tikosyn 500 mcg p.o. b.i.d. 2. Coumadin 6 mg p.o. daily. The patient was instructed to take 10 mg of Coumadin on the night of discharge. 3. Spironolactone 50 mg p.o. daily. 4. Entresto 1 tab p.o. daily. 5. Crestor 20 mg p.o. daily. 6. Nitroglycerin 0.4 mg sublingual q.5 minutes as needed. 7. Metformin 1000 mg p.o. b.i.d. 8. Mag ox 400 mg p.o. daily. 9. Synthroid 175 mcg p.o. daily. 10. Forxiga 10 mg p.o. daily. 11. Plavix 75 mg daily. 12. Carvedilol 6.25 mg p.o. b.i.d. 13. Aspirin 81 mg daily. 14. Protonix 40 mg p.o. b.i.d. DISPOSITION: Discharged to home. DIET: Heart-healthy, diabetic as tolerated. FOLLOWUPS: The patient was instructed to follow up with Dr. Storey, his primary care provider in 4 to 7 days. He was also again instructed to take 10 mg of Coumadin night of discharge and recheck his INR in the morning, report that to Dr. Storey. The patient was also instructed to follow up with Dr. Calvin from GI on as needed basis for possible followup EGD and also Cardiology as needed. The patient was discharged in stable condition in the care of his . All questions were answered. The patient stated his understanding of his discharge instructions, medications, and followups. TIME SPENT: Approximately 35 minutes interfacing with the patient, planning medications, follow ups and discharge plan of care. MAY ACOSTA NP [id number]/[facility] #: [id number] [place]
== END 2018-09-13 13:25 | disposition home or self-care (01) | DRG 378 ==
LOC: ED 15:33 → MED 19:53
PROVIDERS: ADMIT Internal Medicine; ATTEND Internal Medicine
PROC: 0DB98ZX Excision of Duodenum, Via Natural or Artificial Opening Endoscopic, Diagnostic (ICD-10-PCS; principal; 2018-09-08)
PROC: 0DB68ZX Excision of Stomach, Via Natural or Artificial Opening Endoscopic, Diagnostic (ICD-10-PCS; 2018-09-08)
PROC: 30233N1 Transfusion of Nonautologous Red Blood Cells into Peripheral Vein, Percutaneous Approach (ICD-10-PCS; 2018-09-09)
DX: K25.4 Chronic or unspecified gastric ulcer with hemorrhage (principal); I48.92 Unspecified atrial flutter; I50.22 Chronic systolic (congestive) heart failure; I25.10 Atherosclerotic heart disease of native coronary artery without angina pectoris; E03.9 Hypothyroidism, unspecified; D64.9 Anemia, unspecified; I77.1 Stricture of artery; R42 Dizziness and giddiness; I25.5 Ischemic cardiomyopathy; E78.00 Pure hypercholesterolemia, unspecified; E11.51 Type 2 diabetes mellitus with diabetic peripheral angiopathy without gangrene; I48.0 Paroxysmal atrial fibrillation; I11.0 Hypertensive heart disease with heart failure; I70.8 Atherosclerosis of other arteries; E11.65 Type 2 diabetes mellitus with hyperglycemia; G47.30 Sleep apnea, unspecified; K25.9 Gastric ulcer, unspecified as acute or chronic, without hemorrhage or perforation; Z82.49 Family history of ischemic heart disease and other diseases of the circulatory system; Z81.8 Family history of other mental and behavioral disorders; Z95.2 Presence of prosthetic heart valve; Z95.0 Presence of cardiac pacemaker; Z87.891 Personal history of nicotine dependence; Z83.3 Family history of diabetes mellitus; Z95.5 Presence of coronary angioplasty implant and graft; I25.2 Old myocardial infarction; Z79.82 Long term (current) use of aspirin; Z79.01 Long term (current) use of anticoagulants; Z79.02 Long term (current) use of antithrombotics/antiplatelets; Z79.84 Long term (current) use of oral hypoglycemic drugs
CPT/HCPCS: 36415; 74177; 80048; 80053; 81003; 82272; 82565; 82947; 83540; 83550; 83605; 83690; 83735; 83880; 84443; 84484; 84520; 85014; 85018; 85025; 85610; 85730; 86140; 86850; 86900; 86901; 86922; 87040; 87077; 93005; 99156; 99284; A9270-GY; J1644; J2250; J3010; P9040; Q9967

== ENCOUNTER 2019-04-10 15:23 | Inpatient (IN) | payer MEDICAID, MEDICARE ==
[2019-04-10 16:14] LABS: Hematocrit 29 % (42-52); Hemoglobin 8.9 g/dL (14.0-18.0); INR 1.6 (0.82-1.09); Mean Corpuscular HGB Conc 31 g/dL (31-36); Mean Corpuscular Hemoglobin 18 pg (27-31); Mean Corpuscular Volume 60 fL (80-94); Mean Platelet Volume 8.2 fL (7.4-10.4); Platelet Count 288 10^3/uL (150-450); Red Blood Count 4.91 10^6 /uL (4.18-5.48); Red Cell Distribution Width 20 % (10-15); White Blood Count 7.9 10^3/uL (3.5-10.8)
[2019-04-10 16:20] LABS: ALT 60 U/L (7-52); AST 36 U/L (13-39); Albumin 4.3 g/dL (3.2-5.2); Albumin/Globulin Ratio 1.5 (1-3); Alkaline Phosphatase 61 U/L (34-104); Anion Gap 8 mmol/L (2-11); BUN/Creatinine Ratio 12.3 (8-20); Blood Urea Nitrogen 13 mg/dL (6-24); CO2 Carbon Dioxide 24 mmol/L (22-32); Calcium 9.1 mg/dL (8.6-10.3); Chloride 104 mmol/L (101-111); EGFR African American 88.1 (>60); EGFR Non-African American 72.8 (>60); Globulin 2.8 g/dL (2-4); Glucose 145 mg/dL (70-100); Potassium 4.4 mmol/L (3.5-5.0); Sodium 136 mmol/L (135-145); Total Protein 7.1 g/dL (6.4-8.9)
[2019-04-10 16:25] LABS: Troponin I 0.04 ng/mL (<0.04)
[2019-04-10 16:34] LABS: Microcytosis 2+
[2019-04-10 16:35] LABS: Polychromasia 1+
[2019-04-10 16:38] LABS: ABS Basophils 0.1 10^3/ul (0-0.2); ABS Eosinophils 0.2 10^3/ul (0-0.6); ABS Lymphocytes 1.1 10^3/ul (1.0-4.8); ABS Neutrophils 5.5 10^3/ul (1.5-7.7); Eosinophil % 2.9 %; Lymphocyte % 14.4 %
--- NOTE | 2019-04-10 16:38 | ED ---
Palpitations / Dysrhythmia - HPI Summary HPI Summary: The patient is a 53 y/o M presenting with a chief complaint of defibrillator shocking him last night at 2220. He reports that he had been sitting in a chair while camping when he was shocked once. He felt generally crampy in his body but denies any CP. He additionally c/o SOB and fatigue for the last few days. He denies new edema. He is not currently in pain. 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 No hx of blood clots. Last shock that he felt was about a year ago, and he states that he has only been admitted once before. PMHx: DM, thyroid disease, angina, defibrillator, pacemaker, CAD, HLD, HTN, mitral valve replacement, cardiac stent, ND, peripheral vascular disease. FHx: cardiac disease in father ND age 38. Former smoker, rare EtOH, no substance use. - History of Current Complaint Chief Complaint: EDDysrhythmPalp Time Seen by Provider: 04/10/19 16:30 Hx Obtained From: Patient Onset/Duration: Sudden Onset, Lasting Minutes, Resolved Severity Initially: Severe Severity Currently: Mild Aggravating: Other - unsure Alleviating: Other - resolved on own Associated Signs & Symptoms: Shortness of Breath - Allergy/Home Medications Allergies/Adverse Reactions: Allergies Allergy/AdvReac Type Severity Reaction Status Date / Time atorvastatin Allergy Rash Verified 04/10/19 16:45 azithromycin Allergy Hives Verified 04/10/19 16:45 metoprolol Allergy Rash Verified 04/10/19 16:45 ramipril Allergy Rash Verified 04/10/19 16:45 Home Medications: Home Medications DULoxetine CAP* [Cymbalta CAP*] 60 mg PO DAILY 04/10/19 [History Confirmed ] Dulaglutide (NF) [Trulicity (NF)] 1.5 mg SUBCUT WEEKLY 04/10/19 [History Confirmed 04/10/19] Losartan TAB* [Cozaar TAB*] 50 mg PO DAILY 04/10/19 [History Confirmed 04/10/19] Nitroglycerin TAB 0.3 MG* 0.3 mg SL Q5M PRN 04/10/19 [History Confirmed 04/10/19 ] busPIRone TAB* [Buspar TAB*] 10 mg PO BID 04/10/19 [History Confirmed 04/10/19] PMH/Surg Hx/FS Hx/Imm Hx Endocrine/Hematology History: Reports: Hx Anticoagulant Therapy - coumadin, asa , Hx Diabetes - type 2, Hx Thyroid Disease Cardiovascular History: Reports: Hx Angina, Hx Auto Implanted Cardiovert Defib, Hx Coronary Artery Disease, Hx Hypercholesterolemia, Hx Hypertension, Hx Myocardial Infarction, Hx Pacemaker/ICD, Hx Peripheral Vascular Disease, Hx Valvular Heart Disease - mitral, Other Cardiovascular Problems/Disorders - mechanical valve Denies: Hx Congestive Heart Failure Respiratory History: Reports: Hx Sleep Apnea - cpap, but does not use Denies: Hx Asthma, Hx Chronic Obstructive Pulmonary Disease (COPD) GI History: Reports: Other GI Disorders - gastroenteritis History: Denies: Hx Dialysis, Hx Renal Disease Musculoskeletal History: Denies: Hx Arthritis, Hx Rheumatoid Arthritis, Hx Osteoporosis Sensory History: Reports: Hx Contacts or Glasses Denies: Hx Hearing Aid Opthamlomology History: Reports: Hx Contacts or Glasses Neurological History: Reports: Hx Headaches - Surgical History Surgery Procedure, Year, and Place: MITRAL VALVE REPLACEMENT (2 SURGERIES), PACEMAKER, CARDIAC STENT .ND 02/2018 Infectious Disease History: No Infectious Disease History: Denies: Traveled Outside the [place] in Last 30 Days - Family History Known Family History: Positive: Cardiac Disease - Father: ND at age 38 Family History: Mother: Alzheimer's disease. - Social History Alcohol Use: Rare Hx Substance Use: No Substance Use Type: Reports: None Hx Tobacco Use: Yes Smoking Status (MU): Former Smoker Review of Systems Positive: Other - lethargic, generalized body cramping Positive: Other - shock from defibrillator. Negative: Chest Pain Positive: Shortness Of Breath All Other Systems Reviewed And Are Negative: Yes Physical Exam - Summary Physical Exam Summary: Constitutional: Well-developed, Well-nourished, Alert. (-) Distressed Skin: Warm, Dry HENT: Normocephalic; Atraumatic Eyes: Conjunctiva normal Neck: Musculoskeletal ROM normal neck. (-) Stridor, (-) Nuchal rigidity Cardio: Rhythm regular, rate normal, Mid systolic click; Intact distal pulses; Radial pulses are 2+ and symmetric. (-) Murmur Pulmonary/Chest wall: Effort normal. (-) Respiratory distress, (-) Wheezes, (-) Rales Abd: Soft, (-) tenderness, (-) Distension, (-) Guarding, (-) Rebound Musculoskeletal: (-) Edema Lymph: (-) Cervical adenopathy Neuro: Alert, Oriented x3 Psych: Mood and affect Normal Triage Information Reviewed: Yes Vital Signs On Initial Exam: Initial Vitals Temp Pulse Resp BP Pulse Ox 98.1 F 90 18 141/66 100 04/10/19 15:29 04/10/19 15:29 04/10/19 15:29 04/10/19 15:29 04/10/19 15:29 Vital Signs Reviewed: Yes Diagnostics - Vital Signs Vital Signs Temp Pulse Resp BP Pulse Ox 04/10/19 15:29 98.1 F 90 18 141/66 100 - Laboratory Lab Results: Lab Results 04/10/19 04/10/19 04/10/19 Range/Units 15:57 15:57 15:57 WBC 7.9 (3.5-10.8) 10^3/uL RBC 4.91 (4.18-5.48) 10^6 /uL Hgb 8.9 L (14.0-18.0) g/dL Hct 29 L (42-52) % MCV 60 L (80-94) fL MCH 18 L (27-31) pg MCHC 31 (31-36) g/dL RDW 20 H (10-15) % Plt Count 288 (150-450) 10^3/uL MPV 8.2 (7.4-10.4) fL Neut % (Auto) Pending Lymph % (Auto) Pending [place] % (Auto) Pending Eos % (Auto) Pending Baso % (Auto) Pending Absolute Neuts (auto) Pending Absolute Lymphs (auto) Pending Absolute Monos (auto) Pending Absolute Eos (auto) Pending Absolute Basos (auto) Pending Absolute Nucleated RBC Pending Nucleated RBC % Pending INR (Anticoag Therapy) 1.60 H (0.82-1.09) Sodium 136 (135-145) mmol/L Potassium 4.4 (3.5-5.0) mmol/L Chloride 104 (101-111) mmol/L Carbon Dioxide 24 (22-32) mmol/L Anion Gap 8 (2-11) mmol/L BUN 13 (6-24) mg/dL Creatinine 1.06 (0.67-1.17) mg/dL Est GFR ( Amer) 88.1 (>60) Est GFR (Non-Af Amer) 72.8 (>60) BUN/Creatinine Ratio 12.3 (8-20) Glucose 145 H (70-100) mg/dL Calcium 9.1 (8.6-10.3) mg/dL Total Bilirubin 0.50 (0.2-1.0) mg/dL AST 36 (13-39) U/L ALT 60 H (7-52) U/L Alkaline Phosphatase 61 (34-104) U/L Troponin I 0.04 H* (<0.04) ng/mL Total Protein 7.1 (6.4-8.9) g/dL Albumin 4.3 (3.2-5.2) g/dL Globulin 2.8 (2-4) g/dL Albumin/Globulin Ratio 1.5 (1-3) Result Diagrams: 04/10/19 15:57 04/10/19 15:57 Lab Statement: Any lab studies that have been ordered have been reviewed, and results considered in the medical decision making process. - EKG 1527 Cardiac Rate: Other Rate - 91 bpm EKG Comparison: No Significant Change - Unchanaged from 09/2018. Summary of EKG Findings: Atrial-sensed ventricular-paced rhythm at 91 bpm. No STEMI. Re-Evaluation - Re-Evaluation First Eval Re-Evaluation Time: 17:15 Comment: Per defibrillator interrogation report, the patient experienced 22 seconds of ventricular fibrillation at 230 bpm occurring at 2230 last night 02/2019 with a single shock of 36 joules. Second Eval Re-Evaluation Time: 17:40 Comment: I spoke with the patient concerning Dr. Bernal's recommendation for admission. He is agreeable with this plan. Course/Dx - Course Course Of Treatment: 53-year-old male with a history of mitral valve replacement , heart failure, AICD, ND who comes in after defibrillator shocked him times one last night. - PE w well appearing male NAD. Will interrogate AICD, check lytes, touch base w supervisor lamp shades - Diagnoses Provider Diagnoses: AICD (automatic cardioverter/defibrillator) present, Ventricular fibrillation seen on contracts officer - Physician Notifications Discussed Care Of Patient With: Ulises Bernal - cardiology Time Discussed With Above Provider: 17:30 Instructed by Provider To: Other - I spoke with Dr. Bernal concerning patient's defibrillator read. He recommends admission with concern for possible innapropriate shock as it may be atrial tachycardia rather than a ventricular issue. Dr. Harley, hospitalist, accepts the patient for admission at 1810. Discharge - Sign-Out/Discharge Documenting (check all that apply): Patient Departure - Patient is accepted for admission by Dr. Harley. Patient Received Moderate/Deep Sedation with Procedure: No - Discharge Plan Condition: Stable Disposition: ADMITTED TO [facility] Referrals: Harrison Garner MD [Primary Care Provider] - - Billing Disposition and Condition Condition: STABLE Disposition: Admitted to [facility] - Attestation Statements Document Initiated by Johnibe: Yes Documenting Scribe: Elizabeth Arroyo Provider For Whom Joey is Documenting (Include Credential): Dr. Syeda Portillo MD Scribe Attestation: I, Elizabeth Arroyo, scribed for Dr. Syeda Portillo MD on 04/10/19 at 1926. Scribe Documentation Reviewed: Yes Provider Attestation: The documentation as recorded by the Elizabeth ríos accurately reflects the service I personally performed and the decisions made by me, Dr. Syeda Portillo MD Status of Scribe Document: Viewed
[2019-04-10 17:34] LABS: Magnesium 1.9 mg/dL (1.9-2.7)
[2019-04-10] MEDS ORDERED: Magnesium Sulfate 1 GM IV* 1 GM/100 ML BAG IV ONE (17:38)
[2019-04-10] MEDS ORDERED: Acetaminophen TAB* 325 MG PO PRN (20:17)
[2019-04-10] MEDS ORDERED: Ondansetron INJ* 2 MG/ML VIAL IV PRN (20:17)
[2019-04-10] MEDS ORDERED: Senna TAB 8.6 mg* TAB PO PRN (20:17)
[2019-04-10] MEDS ORDERED: Al Hydrox/Mg Hydrox/Simet LIQ* 30 ML UDC PO PRN (20:17)
[2019-04-10] MEDS ORDERED: Nitroglycerin TAB 0.3 MG* 0.3 MG TAB SL PRN (20:40)
[2019-04-10] MEDS ORDERED: Warfarin TAB(*) 10 MG PO ONE (21:00)
[2019-04-10] MEDS ORDERED: Dextrose 50% VIAL 50 ml IV PUSH PRN (21:06)
[2019-04-10 22:29] LABS: Troponin I 0.04 ng/mL (<0.04)
[2019-04-10] MEDS: busPIRone TAB* 10 MG PO SCH (23:04)
[2019-04-10] MEDS: Dofetilide CAP* 500 MCG PO SCH (23:05)
[2019-04-10] MEDS: metFORMIN* 1,000 MG TAB PO SCH (23:05)
[2019-04-10] MEDS: Carvedilol TAB* 6.25 MG PO SCH (23:06)
[2019-04-11 00:48] LABS: Hematocrit 30 % (42-52); Hemoglobin 8.9 g/dL (14.0-18.0)
[2019-04-11 00:49] LABS: Iron 27 ug/dL (50-212)
[2019-04-11 00:50] LABS: % Iron Saturation 5 % (15-55); Total Iron Binding Capacity 599 mcg/dL (250-450); Transferrin 428 mg/dL (203-362)
--- NOTE | 2019-04-11 01:28 | HP ---
CC: Dr. Garner * HISTORY AND PHYSICAL: DATE OF ADMISSION: 04/10/19 PROVIDER: ASHLEY Garcia ATTENDING PHYSICIAN WHILE IN THE HOSPITAL: Dr. Willie Harley * (dictated by ASHLEY Garcia). PRIMARY CARE PROVIDER: Dr. Garner. OUTPATIENT METAL FABRICATOR: Dr. Chavira. CHIEF COMPLAINT: ICD shock delivered. HISTORY OF PRESENT ILLNESS: Rich Guzmán is a 53-year-old white male with past medical history significant for paroxysmal atrial flutter; mechanical mitral valve; ischemic cardiomyopathy, with pacemaker and ICD; coronary artery disease; diabetes mellitus, type 2; hypertension; hypothyroidism, who presents to the emergency department by direction of Dr. Chavira's office after an ICD shock was delivered. The patient reports that he was having a normal evening yesterday. He was sitting around outside with a friend when around 10 p.m., he experienced a shock delivered by his ICD. Afterwards, he felt full-body tingling, which is now resolved. He admits that he has been feeling increased fatigue and dyspnea on exertion over the last 2 to 3 weeks. Based on electronic medical record, the patient has had issues with dyspnea on exertion in the past with followup in Dr. Chavira's office. The patient reports that his dyspnea on exertion was previously improved until the worsening over the last 2 to 3 weeks. The patient denies orthopnea, chest pain, palpitations, shortness of breath, visual changes, abdominal pain, nausea, vomiting, fever, or chills. EMERGENCY DEPARTMENT COURSE: When the patient arrived here to the emergency department, his vital signs were temperature 98.1 degrees Fahrenheit, heart rate 90, respiratory rate 18, oxygen saturation 100% on room air, blood pressure 141/66. An ICD and pacemaker interrogation was performed, which demonstrated 22 seconds of sustained ventricular fibrillation and the report is in the paper chart. The hospitalists were then asked to evaluate the patient for admission. PAST MEDICAL HISTORY: 1. Paroxysmal atrial flutter with history of 2 ablations. 2. Mechanical mitral valve, on Coumadin. 3. Extreme ischemic cardiomyopathy. 4. Coronary artery disease, status post 2 stents. 5. CHF. 6. Diabetes mellitus, type 2. 7. Depression. 8. Hypothyroidism. 9. Hypertension. PAST SURGICAL HISTORY: 1. Mitral valve repair in 2007, followed by mitral valve replacement with mechanical valve in 2007. 2. ICD and PPM placed in 2009, has been replaced 3 times. HOME MEDICATIONS: 1. Warfarin 8 mg p.o. Monday, Monday, and Monday. 2. Warfarin 7 mg p.o. Monday, Monday, , and Monday. 3. BuSpar 10 mg p.o. b.i.d. 4. Duloxetine 60 mg p.o. daily. 5. Losartan 20 mg p.o. daily. 6. Trulicity 1.5 mg subcu weekly. 7. Carvedilol 6.25 mg p.o. b.i.d. 8. Aspirin 81 mg p.o. daily. 9. Tikosyn 500 mcg p.o. b.i.d. 10. Forxiga 10 mg p.o. daily. 11. Metformin 1000 mg p.o. daily. 12. Magnesium oxide 400 mg p.o. daily. 13. Levothyroxine 175 mcg p.o. daily. 14. Nitroglycerin 0.3 mg sublingual q.5 minutes p.r.n. angina. 15. Crestor 20 mg p.o. daily. 16. Spironolactone 50 mg p.o. daily. ALLERGIES: Reaction of rash to ATORVASTATIN, reaction of hives to AZITHROMYCIN , reaction of rash to METOPROLOL, reaction of rash to RAMIPRIL. FAMILY HISTORY: Father at age 60 due to complications related to heart disease. He had an CT at age 38. Mother is and in her 70s. She had dementia and was otherwise healthy. SOCIAL HISTORY: The patient lives with his and son as well as his step- son. He is on disability. He drinks 1 alcoholic beverage per week. He quit smoking in 2007 and previously smoked for at least 30 years about a pack per day , and the patient denies illicit drug use. REVIEW OF SYSTEMS: An 11-point review of systems was completed and all pertinent positives and negatives are above in the HPI. All other systems are negative. PHYSICAL EXAMINATION GENERAL: Middle-aged white male, lying in hospital bed, appearing comfortable, in no acute distress. HEENT: Head: Normocephalic, atraumatic. Eyes: PERRL. Sclerae anicteric. ENT: Mucous membranes moist. NECK: Supple without JVD. LUNGS: Clear to auscultation throughout. CARDIO: Regular rate and rhythm. S1 click audible, otherwise no appreciable murmurs, rubs, or gallops. ABDOMEN: Soft, nontender, nondistended. EXTREMITIES: No clubbing, cyanosis, or edema. NEURO: The patient is alert and oriented x3. No focal deficits. SKIN: Skin is warm, dry, and intact. DIAGNOSTIC STUDIES/LAB DATA: White blood cell count 7.9, red blood cells 4.91, hemoglobin 8.9, hematocrit 29, MCV 60, MCH 18, RDW 20, platelet count 288. Sodium 136, potassium 4.4, chloride 104, carbon dioxide 24, anion gap 8, BUN 13, creatinine 1.06, glucose 75. Magnesium 1.9. Transferrin 478, ferritin 5.0. INR 1.6. AST 36, ALT 60. Troponin 0.04 and then 0.03. EKG demonstrates paced rhythm at 91 beats per minute. No ST depressions or elevations. EKG appears overall unchanged from previous EKG, no T-wave inversions either. ASSESSMENT AND PLAN: Rich Guzmán is a 53-year-old male with history of mechanical valve, paroxysmal atrial flutter, ischemic cardiomyopathy with implantable cardioverter-defibrillator and pacemaker, history of coronary artery disease and diabetes, who presents after an implantable cardioverter- defibrillator shock was delivered. The patient will be admitted to observation for: 1. Implantable cardioverter-defibrillator shock delivered. The patient had 22 beats of sustained ventricular fibrillation demonstrated by the implantable cardioverter-defibrillator interrogation. The patient will be admitted overnight on telemetry. I will repeat potassium and magnesium in the morning. The patient did receive 1 g of magnesium sulfate IV in the emergency department as his magnesium was minimally decreased. I will check a TSH as well. 2. Elevated troponin. The patient had a minimally elevated troponin to 0.04 without EKG changes. This is likely related to ischemic demand of having 22 beats of ventricular fibrillation and requiring the defibrillator. This has since downtrended to 0.03, but I will repeat for a third reading. The patient is asymptomatic. I will order an echocardiogram as well especially considering the patient has over the last 2 to 3 weeks been experiencing worsening shortness of breath. 3. Anemia. His hemoglobin is 8.9. I will order a type and screen, stool Hemoccult and iron is pending. The ferritin being low is already consistent with possible iron deficiency anemia. This may also be contributing to the patient's fatigue and dyspnea and possibly the elevated troponin. 4. Subtherapeutic INR. The patient's INR is 1.6 and he has mechanical valve, for which he takes Coumadin. I will give an extra dose of 10 mg of Coumadin today and continue his normal dosing for the rest of his hospital stay and repeat INR in the morning. 5. Ischemic cardiomyopathy. I will continue the patient's spironolactone. 6. History of atrial flutter. The patient is ventricularly and atrially paced with an implantable cardioverter-defibrillator as well. I will consider his Tikosyn, carvedilol, magnesium oxide. 7. Diabetes. I will continue the patient's home oral medications. Carbohydrate consistent diet has been ordered. I will order fingersticks a.c. and h.s. as well as lispro sliding scale. 8. Coronary artery disease. I will continue the patient's carvedilol, statin, losartan, aspirin. 9. History of depression. I will continue the patient's BuSpar and duloxetine. Of note, this duloxetine may be contributing to his subtherapeutic INR and would benefit from reevaluation with his outpatient primary care provider for possible changing of his medication to treat his depression. 10. Hypothyroidism. I will continue the patient's home levothyroxine. 11. FEN. The patient's electrolytes are overall within normal limits. Carbohydrate consistent diet in addition to heart-healthy diet without caffeine has been ordered. 12. Code status. The patient is full code. 13. DVT prophylaxis. The patient has a DVT risk score of 1. He normally takes Coumadin but this is subtherapeutic at this time. I have ordered SCDs. TIME SPENT: Approximately 50 minutes was spent on this admission. This case has been reviewed by my attending, Dr. Willie Harley, and he agrees with this plan of care. ASHLEY GARCIA [id number]/[facility] #: [id number] [facility]
[2019-04-11] MEDS: Levothyroxine TAB* 175 MCG TAB PO SCH (05:55)
[2019-04-11 06:07] LABS: Hematocrit 31 % (42-52); Hemoglobin 9.5 g/dL (14.0-18.0)
[2019-04-11 06:13] LABS: INR 1.64 (0.82-1.09)
[2019-04-11 06:28] LABS: BUN/Creatinine Ratio 12.1 (8-20); Calcium 8.8 mg/dL (8.6-10.3); EGFR African American 95.3 (>60); EGFR Non-African American 78.8 (>60); Magnesium 2.1 mg/dL (1.9-2.7); Potassium 4.6 mmol/L (3.5-5.0)
[2019-04-11 06:59] LABS: TSH (Thyroid Stimulating Horm) 0.49 mcIU/mL (0.34-5.60)
[2019-04-11] MEDS: DAPAGLIFLOZIN 10 MG TAB (NF) PO SCH (08:53)
[2019-04-11] MEDS ORDERED: LEVOTHYROXINE 175 MG PO SCH (09:00)
[2019-04-11] MEDS: Dofetilide CAP* 500 MCG PO SCH (09:18)
[2019-04-11] MEDS: DULoxetine DR CAP* 60 MG CAP.DR PO SCH (09:18)
[2019-04-11] MEDS: Carvedilol TAB* 6.25 MG PO SCH ×2 (09:18→20:48)
[2019-04-11] MEDS: Losartan TAB* 25 MG PO SCH (09:18)
[2019-04-11] MEDS: Insulin LISPRO* 1 UNITS UNIT SUBCUT SCH ×4 (09:18→20:46)
[2019-04-11] MEDS: Aspirin EC TAB* 81 MG TAB.EC PO SCH (09:18)
[2019-04-11] MEDS: busPIRone TAB* 10 MG PO SCH ×2 (09:18→20:47)
[2019-04-11] MEDS: Magnesium Oxide TAB* 400 MG PO SCH (09:18)
[2019-04-11] MEDS: Spironolactone TAB* 25 MG PO SCH (09:18)
[2019-04-11] MEDS: metFORMIN* 1,000 MG TAB PO SCH ×2 (09:18→20:47)
[2019-04-11] MEDS: CMCS: Rosuvastatin (NF) 20 MG TAB PO SCH (09:18)
[2019-04-11] MEDS: Ferric Gluconate IV* 125 MG in NS 0.9% 100 ML* 100 ML IVPB SCH (09:37)
--- NOTE | 2019-04-11 10:50 | ECHO ---
*[facility]* [place] [address] Fax #: [phone] Transthoracic Echocardiogram Patient: Rich Guzmán : 1965 Study Date: 04/11/2019 Age: 53 Gender: M HR: 77 bpm Height: 70 in /177.8 cm BSA: 2.23 m^2 Weight: 215.5 lb /98 kg BMI: 31 kg/m^2 *Trash Collector Truck Driver: Marialuisa Leon RDCS RN *Referring Physician: * O'Jeny Gastelum *Reading Physician: * Henry Chavira MD Indications: Mitral Valve Disorder. SOB. History: Paroxysmal Atrial fibrillation. Coronary artery disease. PMH: Ischemic cardiomyopathy. Risk factors: Former tobacco use. Hypertension. Diabetes mellitus. Labs, prior tests, procedures, and surgery: Catheterization with coronary intervention. ICD system implantation. Mitral valve replacement with a [employer] mechanical valve. Conclusions Summary: - Impressions: The study is unchanged since the study of May 2018. - Left ventricle: Systolic function is moderately reduced. The estimated ejection fraction is 25-30%. - Right ventricle: The cavity size is normal. Wall thickness is mildly increased. Systolic function is mildly reduced. - Left atrium: The atrium is moderately to severely dilated. - Mitral valve: There is a mechanical prosthesis present. The [employer] mechanical valve appears to be functioning normally. The mean gradient has increased slightly from 3.5 mmhg in 05/2018 ti 5 mmhg now, still witin normal parameters for this type of valve. - Aortic valve: There is mild regurgitation. - Tricuspid valve: There is mild regurgitation. - Pulmonary arteries: Systolic pressure is at the upper limits of normal, estimated to be 35 mm Hg. Study data: Transthoracic echocardiogram. Procedure: Transthoracic echocardiography was performed. Image quality was fair. The study was technically limited due to body habitus and Smoking history. Complete 2D, spectral Doppler, and color flow Doppler. Location: Bedside. Patient status: Inpatient. Patient room number: 434. The previous study was not available, so comparison is made to the report of May 2018. Rhythm: Paced rhythm. Findings Left ventricle: The cavity size is normal. Septal wall thickness is mildly to moderately increased. Systolic function is moderately reduced. The estimated ejection fraction is 25-30%. Regional wall motion abnormalities: Hypokinesis of the basalinferoseptal myocardium. Hypokinesis of the basal-midinferior myocardium. Dyskinesis of the apicalinferior myocardium. Hypokinesis of the basal-midinferolateral myocardium. Dyskinesis of the apical inferior myocardium; akinesis of the basal-mid inferoseptal, basal-mid inferior, and basal inferolateral myocardium; severe hypokinesis of the mid inferolateral and apical myocardium; hypokinesis of the basal anterolateral myocardium; moderate hypokinesis of the apical septal myocardium. Left ventricular diastolic function parameters are indeterminate. Right ventricle: The cavity size is normal. Wall thickness is mildly increased. Pacer wire noted in the right ventricle. Systolic function is mildly reduced. Left atrium: The atrium is moderately to severely dilated. Right atrium: The atrium is normal in size. Pacer wire noted in right atrium. Mitral valve: There is a mechanical prosthesis present. The [employer] mechanical valve appears to be functioning normally. The mean gradient has increased slightly from 3.5 mmhg in 05/2018 ti 5 mmhg now, still witin normal parameters for this type of valve. There is trace regurgitation. Aortic valve: The valve is trileaflet. The leaflets are mildly thickened. There is no evidence of stenosis. There is mild regurgitation. Tricuspid valve: The valve is structurally normal. There is no evidence of stenosis. There is mild regurgitation. Pulmonic valve: The valve is structurally normal. There is no evidence of stenosis. There is trace regurgitation. Aorta: Aortic root: The aortic root is not dilated. Ascending aorta: The ascending aorta is not dilated. Aortic arch: The aortic arch is not dilated. Pericardium: There is no pericardial effusion. Pulmonary arteries: Not well visualized. Systolic pressure is at the upper limits of normal, estimated to be 35 mm Hg. Systemic veins: Inferior vena cava: The vessel is mildly dilated. There is (>= 50%) respiratory change in the IVC dimension. Measurements Left ventricle Value Ref Aortic valve continued Value Ref NILSON, LAX 5.7 cm 4.2 - Mean grad, S 4.2 mm Hg ----- 5.8 Peak grad, S 7.5 mm Hg ----- ESD, LAX (H) 5.2 cm 2.5 - LVOT/AV, VTI ratio 0.75 ----- 4.0 EDGARDO, VTI 2.36 cm^2 ----- FS, LAX (L) 9 % 25 - 43 EDGARDO, Vmax 2.53 cm^2 ----- PW, ED 0.8 cm 0.6 - 1.0 Mitral valve Value Ref IVS/PW, ED 1.73 -------- Peak E 1.34 m/sec ----- E', lat zheng, TDI (L) 4.0 cm/sec >=10.0 Peak A 1.32 m/sec - ---- E/e', lat zheng, TDI 34 -------- VTI leaflet coapt 34.5 cm ---- - E', med zheng, TDI (L) 4.0 cm/sec >=7.0 Decel time 264 ms - ---- E/e', med zheng, TDI 34 -------- PHT 88 ms ---- - E', avg, TDI 4.0 cm/sec -------- Mean grad, D 5.0 mm Hg ---- - E/e', avg, TDI (H) 34 <=14 Peak grad, D 8.7 mm Hg - ---- Peak E/A ratio 1.02 ----- LVOT Value Ref MVA, PHT 2.5 cm^2 ----- Diam, S 2.01 cm -------- Area 3.2 cm^2 -------- Pulmonic valve Value Ref Peak telma, S 1.1 m/sec -------- Peak v, S 0.97 m/sec ----- VTI, S 21.3 cm -------- Peak grad, S 3.7 mm Hg ----- Peak grad, S 5 mm Hg -------- Mean grad, S 3 mm Hg -------- Tricuspid valve Value Ref TR peak v 2.61 m/sec <=2.8 Ventricular septum Value Ref Peak RV-RA grad, S 27 mm Hg ----- IVS, ED (H) 1.4 cm 0.6 - 1.0 Aortic root Value Ref Root diam 3.1 cm <4.3 Right ventricle Value Ref AW thickness, ED (H) 0.6 cm 0.1 - Ascending aorta Value Ref 0.5 AAo AP diam, S 3.5 cm ----- NILSON minor ax, A4C 3.1 cm 1.9 - mid 3.5 Aortic arch Value Ref Pressure, S 35 mm Hg -------- Arch diam 2.6 cm ----- Left atrium Value Ref Decending aorta Value Ref SI dim ES, LAX 4.4 cm -------- Jamshid peak telma 0.62 m/sec ----- ML dim, A4C 5.9 cm -------- SI dim, A4C 6.2 cm -------- Pulmonary artery Value Ref Vol, ES, 2-p 131 ml -------- Pressure, S 35.0 mm Hg ----- Vol/bsa, ES, 2-p (H) 59 ml/m^2 16 - 34 Inferior vena cava Value Ref Right atrium Value Ref Diam 2.2 cm ----- ML dim, ES, A4C 3.9 cm 2.6 - 4.4 SI dim, ES, A4C 5.0 cm 3.4 - 5.3 Estimated RAP 8 mm Hg -------- Aortic valve Value Ref Peak v, S 1.37 m/sec -------- VTI, S 28.5 cm -------- Legend: (L) and (H) kathy values outside specified reference range. Prepared and electronically signed by Henry Chavira MD 04/11/2019 10:49
--- NOTE | 2019-04-11 15:34 | CONS ---
CC: Henry Chavira MD; Cal Mike; Dr. Jonathan Dunne in [facility]. CARDIOLOGY CONSULTATION: DATE OF CONSULT: 04/11/19 REASON FOR CONSULT: ICD shock. HISTORY OF PRESENT ILLNESS: This is a very pleasant 53-year-old gentleman with a longstanding history of ischemic cardiomyopathy, mitral valve replacement, multiple atrial arrhythmias, who was admitted with a defibrillator shock yesterday. He said he was feeling a little more short of breath with walking. He normally gets short of breath walking 50 to 100 feet. He said he has been getting short of breath walking 30 to 40 feet over the last 2 to 3 weeks. He was in [place] setting up for a zlienor show. He said it was not physically arduous. He denied any alcohol or caffeine on the day of the event yesterday, but had had some ice tea the day before. He said he was just sitting on a chair at 10 o'clock and he felt tingly for a few seconds and then the ICD went off. What we gather is once he felt back to normal, he called the office and was told to present for evaluation. His interrogation revealed a biventricular pacemaker with more twitching approximately 1.2% at that time. Typically, he had episodes of atrial arrhythmia with ventricular rates in the 130s at peak in the past. Yesterday's episode appeared to be an atrial flutter with rapid ventricular conduction and a development of ventricular polymorphic VT requiring a defibrillator shock. His ventricular rates in generally during mode switching are typically in the 50 to 110 range, occasionally faster. Most of the episodes of mode switching are less than a minute. His evaluations included troponin of 0.04 and 0.03. His electrolytes were within normal limits and his echo revealed ischemic cardiomyopathy, unchanged compared to May of last year. He denies chest pain, syncope, near syncope, orthopnea, or PND. Denies hematemesis or hematochezia. He had a cardiac catheterization in February 2018, it was the most recent. At that time, he had 2.75 x 8 Synergy drug- eluting stent placed in the circumflex OM. He had troponin positive acute coronary syndrome, [id number] infarct. At that time, the LAD extends passing apex and had somewhat slow flow. Mild systolic compression in the mid segment. Circumflex was moderate, not dominant. The first marginal had ostial 80% AINSLEY 2 flow followed by a small caliber OM2 with 60% to 70% stenosis, not treated. The RCA was dominant, had a 40% mid stenosis. The previously placed stent beyond the acute marginal was patent. The PDA was large and followed by a large posterolateral branch. The RCA had no significant stenosis. LV gram revealed inferior apical dyskinesis, EF of 25%. The inferior wall was akinetic. PAST MEDICAL HISTORY: Includes inferior MD in April 2006, progressive MR requiring mitral valve repair in December 2007, he subsequently had a failed repair and a St. Pee MVR replaced. He also had a non-ST elevation MD, revascularization of circumflex branch I believe. He has a history of atrial flutter, he had an ablation back in December [address] Dunne. He interrupted his Tikosyn and had recurrent episodes of atrial flutter with elevated ventricular response. It is unclear whether he underwent AV richar ablation, but I believe he was restarted on Tikosyn about a year ago and has had improvement in control of his atrial arrhythmia. He had ICD implantation in August 2016 and had a biventricular device. The current device was placed in August 2018. He has a history of an ICD shock in December 2009 in the setting of hypokalemia and other shock in July 2011 with low potassium and atrial arrhythmias followed by VT. He has a history of diabetes and a GI bleed in September 2018. He has type 2 diabetes and hyperlipidemia and sleep apnea, moderate. He has a history of hypertension and hypothyroidism. PAST SURGICAL HISTORY: Includes the mitral valve repair in December 2007, followed by mitral valve replacement for a failed repair. He has had the ICD placed and PTCA about a year ago. MEDICATIONS: As an inpatient include: 1. Aspirin 81 mg a day. 2. Carvedilol 6.25 b.i.d. 3. Dofetilide 500 mcg b.i.d. 4. Trulicity 1.5 subcu Mondays. 5. Cymbalta 60 mg daily. 6. Levothyroxine 175 mcg a day. 7. Losartan 50 mg a day. 8. Magnesium oxide 400 mg a day. 9. Metformin 1000 mg b.i.d. 10. Nitroglycerin p.r.n. 0.3 mg. 11. Zofran 4 mg IV q.4 p.r.n. 12. Rosuvastatin 20 mg a day. 13. Spironolactone 50 mg a day. 14. Warfarin 8 mg on Monday, Monday, Monday and 5 mg on Monday, Monday, , and Monday and 2 mg on Monday, , , and Monday. These are similar to his home medications except for the Zofran. ALLERGIES: He denies any allergies, although he feels he has a cough on ALTACE and ZITHROMAX causes hives. He also felt poorly on beta-blockers at higher doses. ATORVASTATIN causes rash. METOPROLOL, rash. 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 He says he has occasional ice tea. Rare alcohol. REVIEW OF SYSTEMS: Review of systems x10 was negative except as above. He denies orthopnea or peripheral edema. PHYSICAL EXAM: He is a well-developed, well-nourished overweight gentleman, 214 pounds, in no apparent distress. Blood pressure 92/57, pulse of 67, afebrile. Atraumatic and normocephalic. Extraocular muscles intact. Sclerae anicteric. No significant JVD. No cervical adenopathy. Cardiac Exam: S1 and S2 with crisp prosthetic valve sounds and a 2/6 holosystolic murmur at the left lower sternal border. Chest was clear. No CVAT. Abdomen: Bowel sounds present and nontender. Femoral pulses intact without bruits. Distal pulses intact, no edema. Motor strength is 5/5 bilaterally. Deep tendon reflexes 3/4 in the lower extremities and 2/4 in the upper extremities. DIAGNOSTIC STUDIES/LAB DATA: Include anemia with a hematocrit of 29. MCV low at 60, platelet count of 288. INR subtherapeutic at 1.6. Sodium 137, potassium 4.6, BUN of 12, creatinine of 0.99. Troponin was initially 0.04 at 2200 yesterday and 0.01 now and 0.04 yesterday afternoon, 0.03 yesterday evening , 0.03 at 2200 yesterday, and 0.01 this morning. Chest x-ray is not available. Echocardiogram revealed unchanged compared to study of 2018 with an EF of 25% to 30%. Large area of anteroposterior scar and adjacent hypokinesis. Mild RVH with mild RV dysfunction. Moderate to severely dilated left atrium, mechanical St. Pee mitral valve which appears to be functioning normally. Mild TR. PA pressure at 35. EKG from this morning revealed AV sequential pacing with what appeared to be a prolonged QT of 480 and a heart rate of 75. An EKG from last night revealed heart rate of 91, AV sequential pacing with QT of approximately 400 msec. QTc of 494. IMPRESSION: My impression is that Mr. Guzmán had a defibrillator shock which appears to be associated with an episode of atrial flutter, followed by a rapid ventricular response and then ventricular tachycardia, ventricular fibrillation , polymorphic VT, and a defibrillator shock. I did discuss the situation with the patient and have contacted Dr. Dunne of [facility], Electrophysiology. I do not recall if he had an AV richar ablation, but I believe that was discussed in the past and there may be need for re-discussion of strategies to control his atrial arrhythmias in light of the rapid ventricular response, potential for ICD shocks and tachycardia-induced LV dysfunction despite being on Tikosyn. Dr. Dunne has kindly agreed to review the pacemaker interrogations and discuss options for treatment. The patient received magnesium for a magnesium was low normal at 1.9 and continues on supplement. His anemia may be contributing to increased demand and might benefit from iron and transfusion, it does look like he got IV iron today. We would continue his heart failure regimen including the Coreg and losartan and Aldactone. The patient's low blood pressure limits the ability to advance his regimen; also , entresto is contraindicated on dofetilide. Further recommendation will depend on his clinical course and there is Dr. Dunne 's input that he may benefit from a repeat evaluation at [facility] for evaluation and treatment. [id number]/[facility] #: [id number] addendum: After further discussion with Dr. Dunne and the patients on 04.11.19, the plan is as follows: 1. decrease dofetilide to 250 mg po bid 2. observe on telemetry for recurrent arrhythmias. 3. follow qtc. 4. repeat pacer evaluation to evaluate for av richar conduction. 5. patient may need repeat ablation of atrial flutter of av node depending on above and Dr. Dunne's evaluation. 6. follow lytes. [facility] 04.12.19 [facility]
[2019-04-11] MEDS ORDERED: Warfarin TAB(*) 5 MG PO SCH ×2 (17:00→20:47)
[2019-04-11] MEDS ORDERED: Warfarin TAB(*) 2 MG PO SCH (17:00)
[2019-04-11] MEDS: Dofetilide CAP* 250 MCG PO SCH (20:47)
[2019-04-11] MEDS ORDERED: Dofetilide CAP* 250 MCG PO SCH (21:00)
--- NOTE | 2019-04-11 21:06 | PN ---
Subjective Date of Service: 04/11/19 Interval History: Patient has no complaints other than wishing to be discharged. He feels well. Denies chest pain, difficulty breathing, fever/chills, abd pain, neck/jaw/ shoulder pain. Objective Active Medications: Acetaminophen (Tylenol Tab*) 650 mg PO Q4H PRN PRN Reason: MILD PAIN or TEMP > 100.4 Al Hydrox/Mg Hydrox/Simethicone (Maalox Plus*) 30 ml PO Q6H PRN PRN Reason: INDIGESTION Aspirin (Aspirin Ec Tab*) 81 mg PO DAILY [facility] Last Admin: 04/11/19 09:18 Dose: 81 mg Buspirone HCl (Buspar Tab*) 10 mg PO BID [facility] Last Admin: 04/11/19 20:47 Dose: 10 mg Carvedilol (Coreg Tab*) 6.25 mg PO BID [facility] Last Admin: 04/11/19 20:48 Dose: 6.25 mg Dextrose (Dextrose 50% Vial 50 Ml*) 25 ml IV PUSH .FOR FS < 60 - SS PRN PRN Reason: FS < 60 Dofetilide (Tikosyn Cap*) 250 mcg PO BID [facility] Last Admin: 04/11/19 20:47 Dose: 250 mcg Dulaglutide (Trulicity (Nf)) 1.5 mg SUBCUT Mo@0900 [facility] Duloxetine HCl (Cymbalta Cap*) 60 mg PO DAILY [facility] Last Admin: 04/11/19 09:18 Dose: 60 mg Ferric Sodium Gluconate Complex 125 mg/ Sodium Chloride 110 mls @ 110 mls/hr IVPB DAILY [facility] Stop: 04/15/19 08:59 Last Admin: 04/11/19 09:37 Dose: 110 mls/hr Insulin Human Lispro (Humalog*) 0 units SUBCUT ACHS [facility]; Protocol Last Admin: 04/11/19 20:46 Dose: Not Given Levothyroxine Sodium (Synthroid Tab*) 175 mcg PO 0600 [facility] Last Admin: 04/11/19 05:55 Dose: 175 mcg Losartan Potassium (Cozaar Tab*) 50 mg PO DAILY [facility] Last Admin: 04/11/19 09:18 Dose: 50 mg Magnesium Oxide (Magox 400 Tab*) 400 mg PO DAILY [facility] Last Admin: 04/11/19 09:18 Dose: 400 mg Metformin HCl (Glucophage*) 1,000 mg PO BID [facility] Last Admin: 04/11/19 20:47 Dose: 1,000 mg Nitroglycerin (Nitroglycerin Tab 0.3 Mg*) 0.3 mg SL Q5M PRN PRN Reason: CHEST PAIN Rosuvastatin Calcium (Crestor (Nf)) 20 mg PO DAILY [facility] Last Admin: 04/11/19 09:18 Dose: 20 mg Senna (Senokot 8.6 Mg Tab*) 1 tab PO BID PRN PRN Reason: CONSTIPATION Spironolactone (Aldactone Tab*) 50 mg PO DAILY [facility] Last Admin: 04/11/19 09:18 Dose: 50 mg Warfarin Sodium (Coumadin Tab(*)) 8 mg PO MoWeFr@1700 [facility]; Protocol Warfarin Sodium (Coumadin Tab(*)) 5 mg PO SuTuThSa@1700 [facility]; Protocol Last Admin: 04/11/19 17:13 Dose: 5 mg Warfarin Sodium (Coumadin Tab(*)) 2 mg PO SuTuThSa@1700 [facility] Last Admin: 04/11/19 17:13 Dose: 2 mg Vital Signs - 8 hr 04/11/19 15:34 Temperature 97.4 F Pulse Rate 69 Respiratory 16 Rate Blood Pressure 115/65 (mmHg) O2 Sat by Pulse 100 Oximetry Oxygen Devices in Use Now: None Appearance: White middle aged male laying in hospital bed appearing in NAD Eyes: No Scleral Icterus, PERRLA Ears/Nose/Mouth/Throat: Mucous Membranes Moist Neck: NL Appearance and Movements; NL JVP Respiratory: Symmetrical Chest Expansion and Respiratory Effort, Clear to Auscultation Cardiovascular: RRR, - - Click consistent with mechanical valve Abdominal: - - abd Extremities: No Edema, No Clubbing, Cyanosis Skin: No Rash or Ulcers Neurological: Alert and Oriented x 3, NL Muscle Strength and Tone Result Diagrams: 04/11/19 05:47 04/11/19 05:47 Additional Lab and Data: Lab Results 04/10/19 04/10/19 04/10/19 Range/Units 15:57 15:57 15:57 WBC 7.9 (3.5-10.8) 10^3/uL RBC 4.91 (4.18-5.48) 10^6 /uL Hgb 8.9 L (14.0-18.0) g/dL Hct 29 L (42-52) % MCV 60 L (80-94) fL MCH 18 L (27-31) pg MCHC 31 (31-36) g/dL RDW 20 H (10-15) % Plt Count 288 (150-450) 10^3/uL MPV 8.2 (7.4-10.4) fL Neut % (Auto) Pending Lymph % (Auto) Pending [place] % (Auto) Pending Eos % (Auto) Pending Baso % (Auto) Pending Absolute Neuts (auto) Pending Absolute Lymphs (auto) Pending Absolute Monos (auto) Pending Absolute Eos (auto) Pending Absolute Basos (auto) Pending Absolute Nucleated RBC Pending Nucleated RBC % Pending INR (Anticoag Therapy) 1.60 H (0.82-1.09) Sodium 136 (135-145) mmol/L Potassium 4.4 (3.5-5.0) mmol/L Chloride 104 (101-111) mmol/L Carbon Dioxide 24 (22-32) mmol/L Anion Gap 8 (2-11) mmol/L BUN 13 (6-24) mg/dL Creatinine 1.06 (0.67-1.17) mg/dL Est GFR ( Amer) 88.1 (>60) Est GFR (Non-Af Amer) 72.8 (>60) BUN/Creatinine Ratio 12.3 (8-20) Glucose 145 H (70-100) mg/dL Calcium 9.1 (8.6-10.3) mg/dL Total Bilirubin 0.50 (0.2-1.0) mg/dL AST 36 (13-39) U/L ALT 60 H (7-52) U/L Alkaline Phosphatase 61 (34-104) U/L Troponin I 0.04 H* (<0.04) ng/mL Total Protein 7.1 (6.4-8.9) g/dL Albumin 4.3 (3.2-5.2) g/dL Globulin 2.8 (2-4) g/dL Albumin/Globulin Ratio 1.5 (1-3) Assess/Plan/Problems-Billing Assessment: 53 yo male with PMHx mechanical mitral valve, ischemic cardiomyopathy with ICD and PPM, systolic CHF, DMT2, paroxysmal atrial flutter presents to the ED after a shock was delivered from his ICD. - Patient Problems (1) Ventricular fibrillation Current Visit: Yes Status: Acute Code(s): I49.01 - VENTRICULAR FIBRILLATION SNOMED Code(s): 94425126 Comment: -patient's ICD/PPM interrogation reports demonstrates ventricular fibrillation and thus an ICD shock was delivered -Dr. Chavira has been in close contact with wind farm support specialist Dr. Dunne in [place] who knows the patient well; Dr. Dunne has reviewed the EKGs and interrogation and recommends decreasing the patient's tikosyn and monitoring the patient for 3 days -EKG and repeat interrogation for tomorrow (Dr. Dunne has arranged interrogation , someone will be coming from [place] to perform) -continue mag oxide (2) Elevated troponin Current Visit: Yes Status: Acute Code(s): R74.8 - ABNORMAL LEVELS OF OTHER SERUM ENZYMES SNOMED Code(s): 210063384 Comment: -mildly elevated to 0.04 -no EKG evidence of ischemia -not symptomatic -likely 2/2 demand of sustained Vfib which lead to ICD shock delivery (3) H/O mitral valve replacement with mechanical valve Current Visit: Yes Status: Acute Code(s): Z95.2 - PRESENCE OF PROSTHETIC HEART VALVE SNOMED Code(s): 87685398676119 Comment: -subtherapeutic INR -gave extra dose of coumadin yesterday with minimal increase -give extra 10 mg dose today in addition to normal home dose (4) CAD (coronary artery disease) Current Visit: Yes Status: Acute Code(s): I25.10 - ATHSCL HEART DISEASE OF [place] CORONARY ARTERY W/O ANG PCTRS SNOMED Code(s): 25026073 Comment: -continue ASA, carvedilol, losartan, crestor (5) Ischemic cardiomyopathy Current Visit: Yes Status: Acute Code(s): I25.5 - ISCHEMIC CARDIOMYOPATHY SNOMED Code(s): 302141028 Comment: -cont carvedilol, spironolactone, losartan (6) HTN (hypertension) Current Visit: No Status: Acute Code(s): I10 - ESSENTIAL (PRIMARY) HYPERTENSION SNOMED Code(s): 00136349 Comment: -normotensive -cont losartan, carvedilol, spironolactone (7) Hypothyroid Current Visit: No Status: Acute Code(s): E03.9 - HYPOTHYROIDISM, UNSPECIFIED SNOMED Code(s): 26018241 Comment: -Continue Levothyroxine -TSH wnl (8) Type 2 diabetes mellitus Current Visit: No Status: Acute Priority: Medium Comment: - BGs remain well controlled - continue fingersticks, lispro SS ordered - continue home metformin, trulicity, dapagliflozin (9) DVT prophylaxis Current Visit: No Status: Acute Code(s): AZA8013 - SNOMED Code(s): 508189619 Comment: - Heparin/coumadin bridge (10) Full code status Current Visit: No Status: Acute Code(s): Z78.9 - OTHER SPECIFIED HEALTH STATUS SNOMED Code(s): 889987555 Comment: Status and Disposition: inpatient for further monitoring on adjusted tikosyn dose
[2019-04-11] MEDS ORDERED: Warfarin TAB(*) 3 MG PO ONE (22:00)
[2019-04-11] MEDS: Enoxaparin(*) 100 MG/ML SYR SUBCUT SCH (22:30)
[2019-04-12] MEDS: Levothyroxine TAB* 175 MCG TAB PO SCH (05:20)
[2019-04-12 07:39] LABS: ABS Basophils 0.1 10^3/ul (0-0.2); ABS Eosinophils 0.3 10^3/ul (0-0.6); ABS Lymphocytes 1.1 10^3/ul (1.0-4.8); ABS Monocytes 0.9 10^3/ul (0-0.8); ABS Neutrophils 6.1 10^3/ul (1.5-7.7); Eosinophil % 3.5 %; Hematocrit 33 % (42-52); Hemoglobin 10.4 g/dL (14.0-18.0); Lymphocyte % 13.3 %; Mean Corpuscular HGB Conc 31 g/dL (31-36); Mean Corpuscular Hemoglobin 18 pg (27-31); Mean Corpuscular Volume 59 fL (80-94); Mean Platelet Volume 8.3 fL (7.4-10.4); Nucleated Red Blood Cells % 0.1; Platelet Count 313 10^3/uL (150-450); Red Blood Count 5.63 10^6 /uL (4.18-5.48); Red Cell Distribution Width 20 % (10-15); White Blood Count 8.6 10^3/uL (3.5-10.8)
[2019-04-12 07:47] LABS: INR 2.3 (0.82-1.09)
[2019-04-12 07:57] LABS: BUN/Creatinine Ratio 14.3 (8-20); Calcium 8.9 mg/dL (8.6-10.3); EGFR African American 105.1 (>60); EGFR Non-African American 86.8 (>60); Potassium 4.1 mmol/L (3.5-5.0)
--- NOTE | 2019-04-12 08:45 | PN ---
Subjective Date of Service: 04/12/19 Interval History: Mr. Guzmán had an uneventful night. Feels okay this morning, just anxious to go home. He has no other complaints and has had no chest pain or shortness of breath during the past week. Objective Active Medications: Acetaminophen (Tylenol Tab*) 650 mg PO Q4H PRN PRN Reason: MILD PAIN or TEMP > 100.4 Al Hydrox/Mg Hydrox/Simethicone (Maalox Plus*) 30 ml PO Q6H PRN PRN Reason: INDIGESTION Aspirin (Aspirin Ec Tab*) 81 mg PO DAILY [facility] Last Admin: 04/11/19 09:18 Dose: 81 mg Buspirone HCl (Buspar Tab*) 10 mg PO BID [facility] Last Admin: 04/11/19 20:47 Dose: 10 mg Carvedilol (Coreg Tab*) 6.25 mg PO BID [facility] Last Admin: 04/11/19 20:48 Dose: 6.25 mg Dextrose (Dextrose 50% Vial 50 Ml*) 25 ml IV PUSH .FOR FS < 60 - SS PRN PRN Reason: FS < 60 Dofetilide (Tikosyn Cap*) 250 mcg PO BID [facility] Last Admin: 04/11/19 20:47 Dose: 250 mcg Dulaglutide (Trulicity (Nf)) 1.5 mg SUBCUT Mo@0900 [facility] Duloxetine HCl (Cymbalta Cap*) 60 mg PO DAILY [facility] Last Admin: 04/11/19 09:18 Dose: 60 mg Enoxaparin Sodium (Lovenox(*)) 100 mg SUBCUT Q12H [facility] Last Admin: 04/11/19 22:30 Dose: 100 mg Ferric Sodium Gluconate Complex 125 mg/ Sodium Chloride 110 mls @ 110 mls/hr IVPB DAILY [facility] Stop: 04/15/19 08:59 Last Admin: 04/11/19 09:37 Dose: 110 mls/hr Insulin Human Lispro (Humalog*) 0 units SUBCUT ACHS [facility]; Protocol Last Admin: 04/11/19 20:46 Dose: Not Given Levothyroxine Sodium (Synthroid Tab*) 175 mcg PO 0600 [facility] Last Admin: 04/12/19 05:20 Dose: 175 mcg Losartan Potassium (Cozaar Tab*) 50 mg PO DAILY [facility] Last Admin: 04/11/19 09:18 Dose: 50 mg Magnesium Oxide (Magox 400 Tab*) 400 mg PO DAILY [facility] Last Admin: 04/11/19 09:18 Dose: 400 mg Metformin HCl (Glucophage*) 1,000 mg PO BID [facility] Last Admin: 04/11/19 20:47 Dose: 1,000 mg Nitroglycerin (Nitroglycerin Tab 0.3 Mg*) 0.3 mg SL Q5M PRN PRN Reason: CHEST PAIN Rosuvastatin Calcium (Crestor (Nf)) 20 mg PO DAILY [facility] Last Admin: 04/11/19 09:18 Dose: 20 mg Senna (Senokot 8.6 Mg Tab*) 1 tab PO BID PRN PRN Reason: CONSTIPATION Spironolactone (Aldactone Tab*) 50 mg PO DAILY [facility] Last Admin: 04/11/19 09:18 Dose: 50 mg Warfarin Sodium (Coumadin Tab(*)) 8 mg PO MoWeFr@1700 [facility]; Protocol Warfarin Sodium (Coumadin Tab(*)) 5 mg PO SuTuThSa@1700 [facility]; Protocol Last Admin: 04/11/19 17:13 Dose: 5 mg Warfarin Sodium (Coumadin Tab(*)) 2 mg PO SuTuThSa@1700 [facility] Last Admin: 04/11/19 17:13 Dose: 2 mg Vital Signs - 8 hr 04/12/19 04/12/19 03:15 07:15 Temperature 97.9 F 98.0 F Pulse Rate 78 90 Respiratory 14 16 Rate Blood Pressure 95/57 110/71 (mmHg) O2 Sat by Pulse 96 100 Oximetry Oxygen Devices in Use Now: None Appearance: alert, well appearing resting in bed Eyes: No Scleral Icterus Ears/Nose/Mouth/Throat: NL Teeth, Lips, Gums Neck: NL Appearance and Movements; NL JVP Respiratory: Symmetrical Chest Expansion and Respiratory Effort Cardiovascular: - - mechanical click, RRR Abdominal: NL Sounds; No Tenderness; No Distention Lymphatic: No Cervical Adenopathy Extremities: - - trace edema Skin: No Rash or Ulcers Neurological: Alert and Oriented x 3 Result Diagrams: 04/12/19 07:07 04/12/19 07:07 Additional Lab and Data: Lab Results 04/10/19 04/10/19 04/10/19 Range/Units 15:57 15:57 15:57 WBC 7.9 (3.5-10.8) 10^3/uL RBC 4.91 (4.18-5.48) 10^6 /uL Hgb 8.9 L (14.0-18.0) g/dL Hct 29 L (42-52) % MCV 60 L (80-94) fL MCH 18 L (27-31) pg MCHC 31 (31-36) g/dL RDW 20 H (10-15) % Plt Count 288 (150-450) 10^3/uL MPV 8.2 (7.4-10.4) fL Neut % (Auto) Pending Lymph % (Auto) Pending [place] % (Auto) Pending Eos % (Auto) Pending Baso % (Auto) Pending Absolute Neuts (auto) Pending Absolute Lymphs (auto) Pending Absolute Monos (auto) Pending Absolute Eos (auto) Pending Absolute Basos (auto) Pending Absolute Nucleated RBC Pending Nucleated RBC % Pending INR (Anticoag Therapy) 1.60 H (0.82-1.09) Sodium 136 (135-145) mmol/L Potassium 4.4 (3.5-5.0) mmol/L Chloride 104 (101-111) mmol/L Carbon Dioxide 24 (22-32) mmol/L Anion Gap 8 (2-11) mmol/L BUN 13 (6-24) mg/dL Creatinine 1.06 (0.67-1.17) mg/dL Est GFR ( Amer) 88.1 (>60) Est GFR (Non-Af Amer) 72.8 (>60) BUN/Creatinine Ratio 12.3 (8-20) Glucose 145 H (70-100) mg/dL Calcium 9.1 (8.6-10.3) mg/dL Total Bilirubin 0.50 (0.2-1.0) mg/dL AST 36 (13-39) U/L ALT 60 H (7-52) U/L Alkaline Phosphatase 61 (34-104) U/L Troponin I 0.04 H* (<0.04) ng/mL Total Protein 7.1 (6.4-8.9) g/dL Albumin 4.3 (3.2-5.2) g/dL Globulin 2.8 (2-4) g/dL Albumin/Globulin Ratio 1.5 (1-3) Assess/Plan/Problems-Billing Assessment: 53 yo male with PMHx mechanical mitral valve, ischemic cardiomyopathy with ICD and PPM, systolic CHF, DMT2, paroxysmal atrial flutter presents to the ED after a shock was delivered from his ICD. - Patient Problems (1) Ventricular fibrillation Current Visit: Yes Status: Acute Code(s): I49.01 - VENTRICULAR FIBRILLATION SNOMED Code(s): 06320531 Comment: VT/VF long QT-->VT vs. SVT-->VT; ICD appropriately delivered shock on 04/10 no evidence of ischemia to have caused ventricular arrhythmia his AV node has been ablated, so should not have had SVT but will pacer person will come today to turn of ventricular conduction to see if he has AV conduction Plan to decrease the patient's tikosyn dose and monitor the patient for 3 days QTC today is 507 from 523 continue mag oxide (2) CAD (coronary artery disease) Current Visit: Yes Status: Acute Code(s): I25.10 - ATHSCL HEART DISEASE OF [place] CORONARY ARTERY W/O ANG PCTRS SNOMED Code(s): 37851346 Comment: continue ASA, carvedilol, losartan, crestor (3) H/O mitral valve replacement with mechanical valve Current Visit: Yes Status: Acute Code(s): Z95.2 - PRESENCE OF PROSTHETIC HEART VALVE SNOMED Code(s): 23618738304737 Comment: INR therapeutic today (4) Ischemic cardiomyopathy Current Visit: Yes Status: Acute Code(s): I25.5 - ISCHEMIC CARDIOMYOPATHY SNOMED Code(s): 916607268 Comment: cont carvedilol, spironolactone, losartan (5) Atrial flutter Current Visit: No Status: Acute Code(s): I48.92 - UNSPECIFIED ATRIAL FLUTTER SNOMED Code(s): 6584310 Comment: on AC for valve tikosyn dose adjustant as above (6) Diabetes Current Visit: No Status: Acute Code(s): E11.9 - TYPE 2 DIABETES MELLITUS WITHOUT COMPLICATIONS SNOMED Code(s): 73367931 (7) HTN (hypertension) Current Visit: No Status: Acute Code(s): I10 - ESSENTIAL (PRIMARY) HYPERTENSION SNOMED Code(s): 74937275 Comment: normotensive cont losartan, carvedilol, spironolactone Status and Disposition: inpatient for further monitoring on adjusted tikosyn dose
[2019-04-12] MEDS: Dofetilide CAP* 250 MCG PO SCH ×2 (09:03→21:21)
[2019-04-12] MEDS: Insulin LISPRO* 1 UNITS UNIT SUBCUT SCH ×4 (09:03→21:21)
[2019-04-12] MEDS: Magnesium Oxide TAB* 400 MG PO SCH (09:03)
[2019-04-12] MEDS: metFORMIN* 1,000 MG TAB PO SCH ×2 (09:03→21:21)
[2019-04-12] MEDS: Aspirin EC TAB* 81 MG TAB.EC PO SCH (09:03)
[2019-04-12] MEDS: Losartan TAB* 25 MG PO SCH (09:04)
[2019-04-12] MEDS: CMCS: Rosuvastatin (NF) 20 MG TAB PO SCH (09:04)
[2019-04-12] MEDS: Carvedilol TAB* 6.25 MG PO SCH ×2 (09:04→21:21)
[2019-04-12] MEDS: Ferric Gluconate IV* 125 MG in NS 0.9% 100 ML* 100 ML IVPB SCH (09:04)
[2019-04-12] MEDS: DAPAGLIFLOZIN 10 MG TAB (NF) PO SCH (09:04)
[2019-04-12] MEDS: Spironolactone TAB* 25 MG PO SCH (09:04)
[2019-04-12] MEDS: DULoxetine DR CAP* 60 MG CAP.DR PO SCH (09:04)
[2019-04-12] MEDS: busPIRone TAB* 10 MG PO SCH ×2 (09:04→21:21)
[2019-04-12] MEDS: Enoxaparin(*) 100 MG/ML SYR SUBCUT SCH ×2 (11:22→21:21)
[2019-04-12] MEDS ORDERED: Warfarin TAB(*) 4 MG PO SCH (17:00)
[2019-04-12] MEDS: Warfarin TAB(*) 4 MG PO SCH (18:03)
[2019-04-13] MEDS: Levothyroxine TAB* 175 MCG TAB PO SCH (05:12)
[2019-04-13 06:57] LABS: INR 2.78 (0.82-1.09)
[2019-04-13] MEDS: Aspirin EC TAB* 81 MG TAB.EC PO SCH (08:59)
[2019-04-13] MEDS: Carvedilol TAB* 6.25 MG PO SCH ×2 (08:59→21:32)
[2019-04-13] MEDS: metFORMIN* 1,000 MG TAB PO SCH ×2 (09:00→21:37)
[2019-04-13] MEDS: busPIRone TAB* 10 MG PO SCH ×2 (09:00→21:32)
[2019-04-13] MEDS: DULoxetine DR CAP* 60 MG CAP.DR PO SCH (09:00)
[2019-04-13] MEDS: Losartan TAB* 25 MG PO SCH (09:00)
[2019-04-13] MEDS: CMCS: Rosuvastatin (NF) 20 MG TAB PO SCH (09:00)
[2019-04-13] MEDS: DAPAGLIFLOZIN 10 MG TAB (NF) PO SCH (09:00)
[2019-04-13] MEDS: Magnesium Oxide TAB* 400 MG PO SCH (09:00)
[2019-04-13] MEDS: Spironolactone TAB* 25 MG PO SCH (09:01)
[2019-04-13] MEDS: Dofetilide CAP* 250 MCG PO SCH ×2 (09:10→21:32)
[2019-04-13] MEDS: Insulin LISPRO* 1 UNITS UNIT SUBCUT SCH ×4 (09:13→21:33)
[2019-04-13] MEDS: Enoxaparin(*) 100 MG/ML SYR SUBCUT SCH (09:13)
[2019-04-13] MEDS: Ferric Gluconate IV* 125 MG in NS 0.9% 100 ML* 100 ML IVPB SCH (11:48)
--- NOTE | 2019-04-13 13:04 | PN ---
Subjective Date of Service: 04/13/19 - CC: ICD firing/VT Interval History: The patient was seen with his family. He feels much better than on admission, less "wiped out". No awareness of palpitations, no CP, no PND. Medications Active Medications: Acetaminophen (Tylenol Tab*) 650 mg PO Q4H PRN PRN Reason: MILD PAIN or TEMP > 100.4 Al Hydrox/Mg Hydrox/Simethicone (Maalox Plus*) 30 ml PO Q6H PRN PRN Reason: INDIGESTION Aspirin (Aspirin Ec Tab*) 81 mg PO DAILY [facility] Last Admin: 04/13/19 08:59 Dose: 81 mg Buspirone HCl (Buspar Tab*) 10 mg PO BID [facility] Last Admin: 04/13/19 09:00 Dose: 10 mg Carvedilol (Coreg Tab*) 6.25 mg PO BID [facility] Last Admin: 04/13/19 08:59 Dose: 6.25 mg Dextrose (Dextrose 50% Vial 50 Ml*) 25 ml IV PUSH .FOR FS < 60 - SS PRN PRN Reason: FS < 60 Dofetilide (Tikosyn Cap*) 250 mcg PO BID [facility] Last Admin: 04/13/19 09:10 Dose: 250 mcg Dulaglutide (Trulicity (Nf)) 1.5 mg SUBCUT Mo@0900 [facility] Duloxetine HCl (Cymbalta Cap*) 60 mg PO DAILY [facility] Last Admin: 04/13/19 09:00 Dose: 60 mg Enoxaparin Sodium (Lovenox(*)) 100 mg SUBCUT Q12H [facility] Last Admin: 04/13/19 09:13 Dose: 100 mg Ferric Sodium Gluconate Complex 125 mg/ Sodium Chloride 110 mls @ 110 mls/hr IVPB DAILY [facility] Stop: 04/15/19 08:59 Last Admin: 04/13/19 11:48 Dose: 110 mls/hr Insulin Human Lispro (Humalog*) 0 units SUBCUT ACHS [facility]; Protocol Last Admin: 04/13/19 09:13 Dose: 3 unit Levothyroxine Sodium (Synthroid Tab*) 175 mcg PO 0600 [facility] Last Admin: 04/13/19 05:12 Dose: 175 mcg Losartan Potassium (Cozaar Tab*) 50 mg PO DAILY [facility] Last Admin: 04/13/19 09:00 Dose: 50 mg Magnesium Oxide (Magox 400 Tab*) 400 mg PO DAILY [facility] Last Admin: 04/13/19 09:00 Dose: 400 mg Metformin HCl (Glucophage*) 1,000 mg PO BID [facility] Last Admin: 04/13/19 09:00 Dose: 1,000 mg Nitroglycerin (Nitroglycerin Tab 0.3 Mg*) 0.3 mg SL Q5M PRN PRN Reason: CHEST PAIN Rosuvastatin Calcium (Crestor (Nf)) 20 mg PO DAILY [facility] Last Admin: 04/13/19 09:00 Dose: 20 mg Senna (Senokot 8.6 Mg Tab*) 1 tab PO BID PRN PRN Reason: CONSTIPATION Spironolactone (Aldactone Tab*) 50 mg PO DAILY [facility] Last Admin: 04/13/19 09:01 Dose: 50 mg Warfarin Sodium (Coumadin Tab(*)) 8 mg PO DAILY@1700 [facility]; Protocol Last Admin: 04/12/19 18:03 Dose: 8 mg Objective Vital Signs: Temp Pulse Resp BP Pulse Ox 97.7 F 85 16 100/67 100 04/13/19 10:52 04/13/19 10:52 04/13/19 10:52 04/13/19 10:52 04/13/19 10:52 Oxygen Devices in Use Now: None Appearance: stocky older middleaged gentleman lying at 45 degrees, appears comfortable. Eyes: No Scleral Icterus, PERRLA Ears/Nose/Mouth/Throat: Mucous Membranes Moist Neck: Trachea Midline Respiratory: Symmetrical Chest Expansion and Respiratory Effort, Clear to Auscultation Cardiovascular: RRR - ICD pocket unremarkable. Abdominal: NL Sounds; No Tenderness; No Distention Extremities: No Edema Skin: No Rash or Ulcers Neurological: Alert and Oriented x 3, NL Muscle Strength and Tone Laboratory Results: 04/12/19 07:07 04/12/19 07:07 INR (Anticoag Therapy) 2.78 (0.82-1.09) H 04/13/19 06:33 Total Bilirubin 0.50 mg/dL (0.2-1.0) 04/10/19 15:57 AST 36 U/L (13-39) 04/10/19 15:57 ALT 60 U/L (7-52) H 04/10/19 15:57 Alkaline Phosphatase 61 U/L (34-104) 04/10/19 15:57 Total Protein 7.1 g/dL (6.4-8.9) 04/10/19 15:57 Albumin 4.3 g/dL (3.2-5.2) 04/10/19 15:57 Globulin 2.8 g/dL (2-4) 04/10/19 15:57 Albumin/Globulin Ratio 1.5 (1-3) 04/10/19 15:57 TSH 0.49 mcIU/mL (0.34-5.60) 04/11/19 05:47 04/10/19 04/10/19 04/10/19 15:57 18:48 22:03 Troponin I 0.04 H* 0.03 0.04 H* 04/11/19 09:53 Troponin I 0.01 Diagnostic Imaging: Echo 04/11/19: EF 25-30%, mechanical MVR, MG 3.5 mmHg, mild AI. EKG Data: Tele: 15 beat run MM VT 5 PM 04/12/19 and 7 beat run MM VT 1 AM today. EC04/13/19: NSR, BiV pacing, QT 404, QTc 475 ms ICD interogation reviewed: BiV pacing 99%. 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 Hx AVN ablation as well. Tikosyn dose has been lowered with improvement in QTc. VT now monomophic and non sustained. Plan: Polymorphic VT and ICD shock on admission could have been from Tikosyn induced QT prolongation. No recurrence on current lower dose of Tikosyn. Observe overnight, increase activity on the floor here. Tentative discharge in AM. MM VT: Could be from scar/CM and has ICD to protect. PAF: Continue current dose of Tikosyn (250 mcg BID) Continue coumodin. CM: Does not appear decompensated today on exam. Hx of feeling wiped out for 2-3 weeks prior to admission is concerning for decompensated CHF however. Continue Coreg, Cozaar. Agree with Trulicity w/CM and DM. If GALLEGOS walking, would recommend CXR, BNP to see if diuretics indicated. Mechanical MVR Continue coumodin, outpatient serial echo via Dr Mauser. CAD: Continue with aggressive risk factor modification with statin, DM control. Suspect small bumps in troponins are related to VT, but low index for ischemic work up if does not feel well walking on the floor today and tomorrow. Anemia: has had all 2019, getting Fe infusion now. Could have contributed to wiped out feeling. Evaluation via internal medicine, was not present 2018.
[2019-04-13] MEDS: Warfarin TAB(*) 4 MG PO SCH (17:02)
--- NOTE | 2019-04-13 17:04 | PN ---
Subjective Date of Service: 04/13/19 Interval History: Rich feels good today, he is anxious to get home. He has no complaints. He had a 14 beat run of VT yesterday and 8 beats overnight. EKG shows QTc down to 475 this am. Objective Active Medications: Acetaminophen (Tylenol Tab*) 650 mg PO Q4H PRN PRN Reason: MILD PAIN or TEMP > 100.4 Al Hydrox/Mg Hydrox/Simethicone (Maalox Plus*) 30 ml PO Q6H PRN PRN Reason: INDIGESTION Aspirin (Aspirin Ec Tab*) 81 mg PO DAILY [facility] Last Admin: 04/13/19 08:59 Dose: 81 mg Buspirone HCl (Buspar Tab*) 10 mg PO BID [facility] Last Admin: 04/13/19 09:00 Dose: 10 mg Carvedilol (Coreg Tab*) 6.25 mg PO BID [facility] Last Admin: 04/13/19 08:59 Dose: 6.25 mg Dextrose (Dextrose 50% Vial 50 Ml*) 25 ml IV PUSH .FOR FS < 60 - SS PRN PRN Reason: FS < 60 Dofetilide (Tikosyn Cap*) 250 mcg PO BID [facility] Last Admin: 04/13/19 09:10 Dose: 250 mcg Dulaglutide (Trulicity (Nf)) 1.5 mg SUBCUT Mo@0900 [facility] Duloxetine HCl (Cymbalta Cap*) 60 mg PO DAILY [facility] Last Admin: 04/13/19 09:00 Dose: 60 mg Ferric Sodium Gluconate Complex 125 mg/ Sodium Chloride 110 mls @ 110 mls/hr IVPB DAILY [facility] Stop: 04/15/19 08:59 Last Admin: 04/13/19 11:48 Dose: 110 mls/hr Insulin Human Lispro (Humalog*) 0 units SUBCUT ACHS [facility]; Protocol Last Admin: 04/13/19 13:09 Dose: Not Given Levothyroxine Sodium (Synthroid Tab*) 175 mcg PO 0600 [facility] Last Admin: 04/13/19 05:12 Dose: 175 mcg Losartan Potassium (Cozaar Tab*) 50 mg PO DAILY [facility] Last Admin: 04/13/19 09:00 Dose: 50 mg Magnesium Oxide (Magox 400 Tab*) 400 mg PO DAILY [facility] Last Admin: 04/13/19 09:00 Dose: 400 mg Metformin HCl (Glucophage*) 1,000 mg PO BID [facility] Last Admin: 04/13/19 09:00 Dose: 1,000 mg Nitroglycerin (Nitroglycerin Tab 0.3 Mg*) 0.3 mg SL Q5M PRN PRN Reason: CHEST PAIN Rosuvastatin Calcium (Crestor (Nf)) 20 mg PO DAILY [facility] Last Admin: 04/13/19 09:00 Dose: 20 mg Senna (Senokot 8.6 Mg Tab*) 1 tab PO BID PRN PRN Reason: CONSTIPATION Spironolactone (Aldactone Tab*) 50 mg PO DAILY [facility] Last Admin: 04/13/19 09:01 Dose: 50 mg Warfarin Sodium (Coumadin Tab(*)) 8 mg PO DAILY@1700 [facility]; Protocol Last Admin: 04/12/19 18:03 Dose: 8 mg Vital Signs - 8 hr 04/13/19 04/13/19 04/13/19 10:52 11:28 16:49 Temperature 97.7 F 98.8 F 97.9 F Pulse Rate 85 79 78 Respiratory 16 16 16 Rate Blood Pressure 100/67 100/55 98/54 (mmHg) O2 Sat by Pulse 100 96 98 Oximetry Oxygen Devices in Use Now: None Appearance: alert, well appearing Eyes: No Scleral Icterus Neck: - - no JVP Respiratory: Symmetrical Chest Expansion and Respiratory Effort Cardiovascular: RRR, No Edema, - - mechanical click Abdominal: NL Sounds; No Tenderness; No Distention Lymphatic: No Cervical Adenopathy Extremities: No Edema Skin: No Rash or Ulcers Neurological: Alert and Oriented x 3 Result Diagrams: 04/12/19 07:07 04/12/19 07:07 Additional Lab and Data: Lab Results 04/10/19 04/10/19 04/10/19 Range/Units 15:57 15:57 15:57 WBC 7.9 (3.5-10.8) 10^3/uL RBC 4.91 (4.18-5.48) 10^6 /uL Hgb 8.9 L (14.0-18.0) g/dL Hct 29 L (42-52) % MCV 60 L (80-94) fL MCH 18 L (27-31) pg MCHC 31 (31-36) g/dL RDW 20 H (10-15) % Plt Count 288 (150-450) 10^3/uL MPV 8.2 (7.4-10.4) fL Neut % (Auto) Pending Lymph % (Auto) Pending [place] % (Auto) Pending Eos % (Auto) Pending Baso % (Auto) Pending Absolute Neuts (auto) Pending Absolute Lymphs (auto) Pending Absolute Monos (auto) Pending Absolute Eos (auto) Pending Absolute Basos (auto) Pending Absolute Nucleated RBC Pending Nucleated RBC % Pending INR (Anticoag Therapy) 1.60 H (0.82-1.09) Sodium 136 (135-145) mmol/L Potassium 4.4 (3.5-5.0) mmol/L Chloride 104 (101-111) mmol/L Carbon Dioxide 24 (22-32) mmol/L Anion Gap 8 (2-11) mmol/L BUN 13 (6-24) mg/dL Creatinine 1.06 (0.67-1.17) mg/dL Est GFR ( Amer) 88.1 (>60) Est GFR (Non-Af Amer) 72.8 (>60) BUN/Creatinine Ratio 12.3 (8-20) Glucose 145 H (70-100) mg/dL Calcium 9.1 (8.6-10.3) mg/dL Total Bilirubin 0.50 (0.2-1.0) mg/dL AST 36 (13-39) U/L ALT 60 H (7-52) U/L Alkaline Phosphatase 61 (34-104) U/L Troponin I 0.04 H* (<0.04) ng/mL Total Protein 7.1 (6.4-8.9) g/dL Albumin 4.3 (3.2-5.2) g/dL Globulin 2.8 (2-4) g/dL Albumin/Globulin Ratio 1.5 (1-3) Assess/Plan/Problems-Billing Assessment: 53 yo male with PMHx mechanical mitral valve, ischemic cardiomyopathy with ICD and PPM, systolic CHF, DMT2, paroxysmal atrial flutter presents to the ED after a shock was delivered from his ICD. - Patient Problems (1) Ventricular fibrillation Current Visit: Yes Status: Acute Code(s): I49.01 - VENTRICULAR FIBRILLATION SNOMED Code(s): 91610348 Comment: VT/VF long QT-->VT vs. SVT-->VT; ICD appropriately delivered shock on 04/10 no evidence of ischemia to have caused ventricular arrhythmia; no evidence of decompensated heart failure On decreased tikosyn dose, QTC today is 475 from 507 from 523 continue mag oxide (2) CAD (coronary artery disease) Current Visit: Yes Status: Acute Code(s): I25.10 - ATHSCL HEART DISEASE OF [place] CORONARY ARTERY W/O ANG PCTRS SNOMED Code(s): 61069457 Comment: continue ASA, carvedilol, losartan, crestor (3) H/O mitral valve replacement with mechanical valve Current Visit: Yes Status: Acute Code(s): Z95.2 - PRESENCE OF PROSTHETIC HEART VALVE SNOMED Code(s): 25854189075678 Comment: INR therapeutic today; okay to DC lovenox and continue warfarin, recehck tomorrow (4) Ischemic cardiomyopathy Current Visit: Yes Status: Acute Code(s): I25.5 - ISCHEMIC CARDIOMYOPATHY SNOMED Code(s): 837063485 Comment: cont carvedilol, spironolactone, losartan (5) Atrial flutter Current Visit: No Status: Acute Code(s): I48.92 - UNSPECIFIED ATRIAL FLUTTER SNOMED Code(s): 8972734 Comment: on AC for valve tikosyn dose adjustant as above (6) Diabetes Current Visit: No Status: Acute Code(s): E11.9 - TYPE 2 DIABETES MELLITUS WITHOUT COMPLICATIONS SNOMED Code(s): 16584130 (7) HTN (hypertension) Current Visit: No Status: Acute Code(s): I10 - ESSENTIAL (PRIMARY) HYPERTENSION SNOMED Code(s): 87508567 Comment: normotensive cont losartan, carvedilol, spironolactone Status and Disposition: inpatient for further monitoring on adjusted tikosyn dose
--- NOTE | 2019-04-13 17:24 | PN ---
Hospitalist Progress Note Date of Service: 04/13/19 I followed up with Mr. Guzmán this afternoon; he was able to go for a walk around the unit and had no shortness of breath or chest pain. Says he felt no different than baseline.
[2019-04-14] MEDS: Levothyroxine TAB* 175 MCG TAB PO SCH (05:23)
[2019-04-14 07:55] LABS: ABS Basophils 0.2 10^3/ul (0-0.2); ABS Eosinophils 0.3 10^3/ul (0-0.6); ABS Lymphocytes 1.3 10^3/ul (1.0-4.8); ABS Monocytes 0.9 10^3/ul (0-0.8); ABS Neutrophils 6.4 10^3/ul (1.5-7.7); Eosinophil % 3.2 %; Hematocrit 36 % (42-52); Lymphocyte % 14.8 %; Mean Corpuscular HGB Conc 31 g/dL (31-36); Mean Corpuscular Hemoglobin 19 pg (27-31); Mean Corpuscular Volume 60 fL (80-94); Mean Platelet Volume 8.4 fL (7.4-10.4); Nucleated Red Blood Cells % 0.1; Platelet Count 309 10^3/uL (150-450); Red Cell Distribution Width 20 % (10-15); White Blood Count 9.1 10^3/uL (3.5-10.8)
[2019-04-14 08:01] LABS: INR 2.38 (0.82-1.09)
[2019-04-14 08:11] LABS: BUN/Creatinine Ratio 15.7 (8-20); Calcium 9.3 mg/dL (8.6-10.3); EGFR African American 107.8 (>60); EGFR Non-African American 89.1 (>60); Potassium 4.3 mmol/L (3.5-5.0)
[2019-04-14] MEDS: busPIRone TAB* 10 MG PO SCH (09:32)
[2019-04-14] MEDS: Spironolactone TAB* 25 MG PO SCH (09:32)
[2019-04-14] MEDS: DULoxetine DR CAP* 60 MG CAP.DR PO SCH (09:32)
[2019-04-14] MEDS: CMCS: Rosuvastatin (NF) 20 MG TAB PO SCH (09:32)
[2019-04-14] MEDS: Losartan TAB* 25 MG PO SCH (09:32)
[2019-04-14] MEDS: Aspirin EC TAB* 81 MG TAB.EC PO SCH (09:32)
[2019-04-14] MEDS: metFORMIN* 1,000 MG TAB PO SCH (09:32)
[2019-04-14] MEDS: Insulin LISPRO* 1 UNITS UNIT SUBCUT SCH ×2 (09:33→11:54)
[2019-04-14] MEDS: Magnesium Oxide TAB* 400 MG PO SCH (09:33)
[2019-04-14] MEDS: Carvedilol TAB* 6.25 MG PO SCH (09:33)
[2019-04-14] MEDS: Dofetilide CAP* 250 MCG PO SCH (10:24)
[2019-04-14] MEDS: Ferric Gluconate IV* 125 MG in NS 0.9% 100 ML* 100 ML IVPB SCH (10:25)
[2019-04-14] MEDS: DAPAGLIFLOZIN 10 MG TAB (NF) PO SCH (10:34)
--- NOTE | 2019-04-14 11:27 | PN ---
Subjective Date of Service: 04/14/19 - CC: VT/ICD firing Interval History: The patient was seen with his family. No new c/o. Walking and feels good. Medications Active Medications: Acetaminophen (Tylenol Tab*) 650 mg PO Q4H PRN PRN Reason: MILD PAIN or TEMP > 100.4 Al Hydrox/Mg Hydrox/Simethicone (Maalox Plus*) 30 ml PO Q6H PRN PRN Reason: INDIGESTION Aspirin (Aspirin Ec Tab*) 81 mg PO DAILY [facility] Last Admin: 04/14/19 09:32 Dose: 81 mg Buspirone HCl (Buspar Tab*) 10 mg PO BID [facility] Last Admin: 04/14/19 09:32 Dose: 10 mg Carvedilol (Coreg Tab*) 6.25 mg PO BID [facility] Last Admin: 04/14/19 09:33 Dose: 6.25 mg Dextrose (Dextrose 50% Vial 50 Ml*) 25 ml IV PUSH .FOR FS < 60 - SS PRN PRN Reason: FS < 60 Dofetilide (Tikosyn Cap*) 250 mcg PO BID [facility] Last Admin: 04/14/19 10:24 Dose: 250 mcg Dulaglutide (Trulicity (Nf)) 1.5 mg SUBCUT Mo@0900 [facility] Duloxetine HCl (Cymbalta Cap*) 60 mg PO DAILY [facility] Last Admin: 04/14/19 09:32 Dose: 60 mg Ferric Sodium Gluconate Complex 125 mg/ Sodium Chloride 110 mls @ 110 mls/hr IVPB DAILY [facility] Stop: 04/15/19 08:59 Last Admin: 04/14/19 10:25 Dose: 110 mls/hr Insulin Human Lispro (Humalog*) 0 units SUBCUT ACHS [facility]; Protocol Last Admin: 04/14/19 09:33 Dose: 3 unit Levothyroxine Sodium (Synthroid Tab*) 175 mcg PO 0600 [facility] Last Admin: 04/14/19 05:23 Dose: 175 mcg Losartan Potassium (Cozaar Tab*) 50 mg PO DAILY [facility] Last Admin: 04/14/19 09:32 Dose: 50 mg Magnesium Oxide (Magox 400 Tab*) 400 mg PO DAILY [facility] Last Admin: 04/14/19 09:33 Dose: 400 mg Metformin HCl (Glucophage*) 1,000 mg PO BID [facility] Last Admin: 04/14/19 09:32 Dose: 1,000 mg Nitroglycerin (Nitroglycerin Tab 0.3 Mg*) 0.3 mg SL Q5M PRN PRN Reason: CHEST PAIN Rosuvastatin Calcium (Crestor (Nf)) 20 mg PO DAILY [facility] Last Admin: 04/14/19 09:32 Dose: 20 mg Senna (Senokot 8.6 Mg Tab*) 1 tab PO BID PRN PRN Reason: CONSTIPATION Spironolactone (Aldactone Tab*) 50 mg PO DAILY [facility] Last Admin: 04/14/19 09:32 Dose: 50 mg Warfarin Sodium (Coumadin Tab(*)) 8 mg PO DAILY@1700 [facility]; Protocol Last Admin: 04/13/19 17:02 Dose: 8 mg Objective Vital Signs: Temp Pulse Resp BP Pulse Ox 97.7 F 85 14 105/68 99 04/14/19 07:40 04/14/19 07:40 04/14/19 08:00 04/14/19 07:40 04/14/19 07:40 Oxygen Devices in Use Now: None Appearance: stocky older middleaged gentleman lying at 45 degrees, appears comfortable. Eyes: No Scleral Icterus, PERRLA Ears/Nose/Mouth/Throat: Mucous Membranes Moist Neck: Trachea Midline Respiratory: Symmetrical Chest Expansion and Respiratory Effort, Clear to Auscultation Cardiovascular: RRR - ICD pocket unremarkable. Abdominal: NL Sounds; No Tenderness; No Distention Extremities: No Edema Skin: No Rash or Ulcers Neurological: Alert and Oriented x 3, NL Muscle Strength and Tone Laboratory Results: 04/14/19 07:28 04/14/19 07:28 INR (Anticoag Therapy) 2.38 (0.82-1.09) H 04/14/19 07:28 Total Bilirubin 0.50 mg/dL (0.2-1.0) 04/10/19 15:57 AST 36 U/L (13-39) 04/10/19 15:57 ALT 60 U/L (7-52) H 04/10/19 15:57 Alkaline Phosphatase 61 U/L (34-104) 04/10/19 15:57 Total Protein 7.1 g/dL (6.4-8.9) 04/10/19 15:57 Albumin 4.3 g/dL (3.2-5.2) 04/10/19 15:57 Globulin 2.8 g/dL (2-4) 04/10/19 15:57 Albumin/Globulin Ratio 1.5 (1-3) 04/10/19 15:57 TSH 0.49 mcIU/mL (0.34-5.60) 04/11/19 05:47 04/10/19 04/10/19 04/10/19 15:57 18:48 22:03 Troponin I 0.04 H* 0.03 0.04 H* 04/11/19 09:53 Troponin I 0.01 Diagnostic Imaging: Echo 04/11/19: EF 25-30%, mechanical MVR, MG 3.5 mmHg, mild AI. EKG Data: Tele: 15 beat run MM VT 5 PM 04/12/19 and 7 beat run MM VT 1 AM 04/13/19. PVC's overnight, no afib, no VT. EC04/13/19: NSR, BiV pacing, QT 404, QTc 475 ms ECG 04/14/19: QTc 507 ms ICD interogation reviewed: BiV pacing 99%. 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 Hx AVN ablation as well. Tikosyn dose has been lowered with improvement in QTc. VT improved, resolution of PMVT, no further MM VT overnight. Plan: Polymorphic VT and ICD shock on admission likely from Tikosyn induced QT prolongation. Continue lower Tikosyn dose: 250 mcg BID, OK to send home today. I will write a dispense Rx for 7 days in addition to eRx he will need. MM VT: Could be from scar/CM and has ICD to protect. PAF: Continue current dose of Tikosyn (250 mcg BID) Continue coumodin. CM: Continue Coreg, Cozaar. Agree with Trulicity w/CM and DM. Mechanical MVR Continue coumodin, outpatient serial echo via Dr Chavira. CAD: Continue with aggressive risk factor modification with statin, DM control. Suspect small bumps in troponins are related to VT, as no c/o ambulating any ischemic work up can be performed outpatient. Anemia: has had all 2019, getting Fe infusion now. Could have contributed to wiped out feeling. Evaluation via internal medicine, was not present 2017.
--- NOTE | 2019-04-14 12:56 | DS ---
CC: Dr. Garner; Dr. Chavira * DISCHARGE SUMMARY: DATE OF ADMISSION: 04/10/19 DATE OF DISCHARGE: 04/14/19 PRINCIPAL DISCHARGE DIAGNOSES: 1. Polymorphic ventricular tachycardia. 2. Appropriate ICD shock. 3. Subtherapeutic INR. 4. Anemia. SECONDARY DISCHARGE DIAGNOSES: 1. Ischemic cardiomyopathy. 2. Atrial flutter. 3. Coronary artery disease. 4. Type 2 diabetes. 5. History of depression. MEDICATIONS AT DISCHARGE: 1. Spironolactone 50 mg daily. 2. Coreg 6.25 mg b.i.d. 3. Aspirin 81 mg daily. 4. Levothyroxine 175 mcg daily. 5. Rosuvastatin 20 mg daily. 6. Farxiga 10 mg daily. 7. Mag-Ox 400 mg daily. 8. Metformin 1000 mg b.i.d. 9. Buspirone 10 mg b.i.d. 10. Duloxetine 60 mg daily. 11. Losartan 50 mg daily. 12. Trulicity 1.5 mg weekly. 13. Warfarin 8 mg daily. 14. Tikosyn 250 mg b.i.d. PHYSICAL EXAM: Temperature 97.7, heart rate 85, respiratory rate 14, pulse ox 99% on room air, blood pressure 105/68. General: Alert, well-appearing man, who is in no distress, resting comfortably in bed. HEENT: Pupils are equal, round, reactive to light. Oral mucosa is moist. Neck: No JVP is appreciated. No adenopathy. Chest: He is in a regular rate and rhythm with an old sternotomy. He has a mechanical click. His lungs are clear bilaterally. Abdomen: Soft, nontender, nondistended. No guarding or rebound. No CVA tenderness. Extremities: No edema, rashes, or ulcers. HOSPITAL COURSE BY PROBLEM: 1. Polymorphic VT with an appropriate ICD shock delivered. Mr. Guzmán has a complicated electrophysiologic history and Cardiology was consulted at admission. He was evaluated by Dr. Chavira, who suggested that his polymorphic V- tach was either caused from a long QTc induced by Tikosyn versus SVT leading to VT versus his inherent risk of VT given his suppressed ejection fraction. His ICD was interrogated and he was found to be V-paced 99% of the time. His admission EKG had QTc of [address] with [address] Dunne, who is the secure software assessor at [facility], Dr. Chavira recommended decreasing his Tikosyn dose to 250 mg b.i.d. and he was monitored for 72 hours. On 04/12/19, he had another 14 beats of VT, so he was monitored again. He had no evidence of ischemia or decompensated heart failure to explain his VT, so it was attributed more so to the Tikosyn dose. His electrolytes were monitored and remained within normal limits during this hospitalization and he was continued on his home dose of magnesium. He has had no VT or SVT in the prior 24 hours at the time of discharge and he is being discharged to home on a reduced dose of Tikosyn with close followup with Dr. Chavira and Dr. Dunne. 2. Subtherapeutic INR. At admission, his INR was 1.6. Given his history of a mechanical valve, he was placed on therapeutic Lovenox and his warfarin dose was increased. His INR at the time of discharge is 2.38 and he is being discharged on an increased dose of warfarin. He will follow up with Dr. Garner , who manages his INR to be sure his INR has increased to goal. 3. Chronic systolic heart failure. He was continued on his home doses of Coreg and Cozaar and remained euvolemic throughout this admission. 4. Diabetes. Continue with his home doses of Farxiga and Trulicity and metformin. 5. Disposition. Mr. Guzmán is being discharged to home with his family on with a reduced dose of Tikosyn and an increased dose of warfarin. He is to follow up with Dr. Chavira, Dr. Garner and Dr. Dunne. CONDITION AT THE TIME OF DISCHARGE: Stable. [id number]/[facility] #: [id number]
[2019-04-14 14:58] VITALS: BP 105/61
[2019-04-15] MEDS ORDERED: Dulaglutide (NF) 1.5 MG/0.5 ML SYRINGE SUBCUT SCH (09:00)
== END 2019-04-14 13:15 | disposition home or self-care (01) | DRG 309 ==
LOC: ED 15:23 → MEDTELE 20:17 → OBSVTOIN 04-12 11:00
PROVIDERS: ADMIT Internal Medicine; ATTEND Internal Medicine
DX: I47.2 Ventricular tachycardia (principal); I50.22 Chronic systolic (congestive) heart failure; I49.01 Ventricular fibrillation; I11.0 Hypertensive heart disease with heart failure; I45.81 Long QT syndrome; I48.92 Unspecified atrial flutter; R79.1 Abnormal coagulation profile; T46.2X5A Adverse effect of other antidysrhythmic drugs, initial encounter; D50.9 Iron deficiency anemia, unspecified; I25.5 Ischemic cardiomyopathy; I25.10 Atherosclerotic heart disease of native coronary artery without angina pectoris; R74.8 Abnormal levels of other serum enzymes; E11.9 Type 2 diabetes mellitus without complications; F32.9 Major depressive disorder, single episode, unspecified; E03.9 Hypothyroidism, unspecified; E66.3 Overweight; Z68.30 Body mass index [BMI] 30.0-30.9, adult; Z95.810 Presence of automatic (implantable) cardiac defibrillator; Z95.2 Presence of prosthetic heart valve; Z95.5 Presence of coronary angioplasty implant and graft; Z79.01 Long term (current) use of anticoagulants; Z79.84 Long term (current) use of oral hypoglycemic drugs; Z79.82 Long term (current) use of aspirin; Z79.899 Other long term (current) drug therapy; Z88.1 Allergy status to other antibiotic agents; Z88.8 Allergy status to other drugs, medicaments and biological substances; Z82.49 Family history of ischemic heart disease and other diseases of the circulatory system; Z87.891 Personal history of nicotine dependence; Y92.9 Unspecified place or not applicable; I25.2 Old myocardial infarction
CPT/HCPCS: 36415; 80048; 80053; 82272; 82728; 83540; 83550; 83735; 84443; 84484; 85014; 85018; 85025; 85060; 85610; 86850; 86900; 86901; 93005; 93306; 99284; A9270-GY; G0378; J1650; J2916; J3475

== ENCOUNTER 2020-06-12 15:46 | Observation (INO) ==
[2020-06-12] MEDS ORDERED: NS 0.9% 1000 ml BAG 1,000 ML IV ONE (16:03)
[2020-06-12 16:17] LABS: ABS Basophils 0.1 10^3/ul (0-0.2); ABS Eosinophils 0.3 10^3/ul (0-0.6); ABS Lymphocytes 1.2 10^3/ul (1.0-4.8); ABS Monocytes 0.9 10^3/ul (0-0.8); ABS Neutrophils 5.1 10^3/ul (1.5-7.7); Eosinophil % 4.2 %; Hematocrit 48 % (42-52); Hemoglobin 16.5 g/dL (14.0-18.0); Mean Corpuscular HGB Conc 34 g/dL (31-36); Mean Corpuscular Hemoglobin 31 pg (27-31); Mean Corpuscular Volume 91 fL (80-94); Mean Platelet Volume 7.9 fL (7.4-10.4); Nucleated Red Blood Cells % 0.1; Platelet Count 228 10^3/uL (150-450); Red Blood Count 5.32 10^6 /uL (4.18-5.48); Red Cell Distribution Width 14 % (10-15); White Blood Count 7.6 10^3/uL (3.5-10.8)
[2020-06-12] MEDS ORDERED: Iodixanol (CONTRAST) 320 MG/ML 100 ML SDV IV ONE (16:19)
[2020-06-12 16:25] LABS: Activated Partial Thrombo Time 41.5 seconds (26.0-38.0); INR 2.18 (0.82-1.09)
[2020-06-12 16:31] LABS: Troponin I 0.01 ng/mL (<0.03)
[2020-06-12 16:36] LABS: Albumin 4.8 g/dL (3.2-5.2); Albumin/Globulin Ratio 1.4 (1-3); BUN/Creatinine Ratio 15.8 (8-20); EGFR African American 92.8 (>60); EGFR Non-African American 76.7 (>60); Globulin 3.5 g/dL (2-4); HDL Cholesterol 42.4 mg/dL; Potassium 4.5 mmol/L (3.5-5.0); Total Bilirubin 0.7 mg/dL (0.2-1.0); Total Protein 8.3 g/dL (6.4-8.9)
[2020-06-12 19:28] LABS: TSH Ultra Thyroid Stim Horm 0.62 mcIU/mL (0.34-5.60)
[2020-06-12] MEDS ORDERED: Heparin DRIP 25,000 UNITS BAG 25,000 UNITS/500 ML BAG IV SCH (19:45)
[2020-06-12] MEDS ORDERED: Dextrose 50% Syringe 50 ml 25 GM/50 ML SYRINGE IV PUSH PRN (19:48)
[2020-06-12] MEDS ORDERED: Heparin 5000 UNITS/ML 1 mL VIAL IV SCH (20:00)
[2020-06-12] MEDS ORDERED: CMC:Rosuvastatin 20 mg TAB (NF) PO SCH (21:00)
[2020-06-12 21:25] LABS: ABS Basophils 0.1 10^3/ul (0-0.2); ABS Eosinophils 0.3 10^3/ul (0-0.6); ABS Lymphocytes 1.6 10^3/ul (1.0-4.8); ABS Monocytes 0.8 10^3/ul (0-0.8); ABS Neutrophils 4.1 10^3/ul (1.5-7.7); Eosinophil % 4.3 %; Hematocrit 48 % (42-52); Hemoglobin 16.2 g/dL (14.0-18.0); Lymphocyte % 23.3 %; Mean Corpuscular HGB Conc 34 g/dL (31-36); Mean Corpuscular Hemoglobin 31 pg (27-31); Mean Corpuscular Volume 91 fL (80-94); Mean Platelet Volume 8.1 fL (7.4-10.4); Platelet Count 210 10^3/uL (150-450); Red Blood Count 5.25 10^6 /uL (4.18-5.48); Red Cell Distribution Width 14 % (10-15); White Blood Count 6.9 10^3/uL (3.5-10.8)
[2020-06-12] MEDS: Ranolazine 500 mg TAB (NF) PO SCH (22:39)
[2020-06-13 05:48] LABS: ABS Basophils 0.1 10^3/ul (0-0.2); ABS Eosinophils 0.2 10^3/ul (0-0.6); ABS Lymphocytes 1.3 10^3/ul (1.0-4.8); ABS Monocytes 0.7 10^3/ul (0-0.8); ABS Neutrophils 3.1 10^3/ul (1.5-7.7); Eosinophil % 4.5 %; Hematocrit 46 % (42-52); Hemoglobin 15.1 g/dL (14.0-18.0); Lymphocyte % 24.5 %; Mean Corpuscular HGB Conc 33 g/dL (31-36); Mean Corpuscular Hemoglobin 30 pg (27-31); Mean Corpuscular Volume 90 fL (80-94); Mean Platelet Volume 8.2 fL (7.4-10.4); Nucleated Red Blood Cells % 0.1; Platelet Count 191 10^3/uL (150-450); Red Blood Count 5.04 10^6 /uL (4.18-5.48); Red Cell Distribution Width 14 % (10-15); White Blood Count 5.4 10^3/uL (3.5-10.8)
[2020-06-13 05:55] LABS: INR 2.27 (0.82-1.09)
[2020-06-13 06:14] LABS: BUN/Creatinine Ratio 16.7 (8-20); Calcium 8.7 mg/dL (8.6-10.3); EGFR Non-African American 87.6 (>60); Potassium 3.8 mmol/L (3.5-5.0)
[2020-06-13] MEDS: Ranolazine 500 mg TAB (NF) PO SCH (08:51)
[2020-06-13] MEDS ORDERED: DULoxetine DR 20 mg CAP PO SCH (09:00)
[2020-06-13] MEDS ORDERED: Influenza VAC *QUAD* 2020-21* 0.5 ML SYRINGE IM ONE (09:00)
[2020-06-13 13:47] LABS: Urine Appearance Clear; Urine Bilirubin Negative (Negative); Urine Blood Negative (Negative); Urine Color Yellow; Urine Glucose 3+(>=500 mg/dL) (Negative); Urine Ketones Negative (Negative); Urine Nitrite Negative (Negative); Urine Protein Negative (Negative); Urine Specific Gravity 1.024 (1.010-1.030); Urine Urobilinogen Negative (Negative)
[2020-06-13 14:05] VITALS: BP 109/63
[2020-06-13] MEDS ORDERED: Warfarin DAILY REMINDER **NOTE FOLLOW UP SCH (17:00)
== END 2020-06-13 14:30 | disposition home or self-care (01) ==
LOC: EDACCT# → MEDTELE 15:46 → ED 15:46
PROVIDERS: ADMIT Internal Medicine; ATTEND Student in an Organized Health Care Education/Training Program